=== PATIENT | female | born 1940 | race Caucasian/White ===

== ENCOUNTER 2018-08-08 15:37 | Inpatient (IN) | payer BC, OTHER ==
--- NOTE | 2018-08-08 15:44 | PDOC ---
Rapid Medical Evaluation Medical Evaluation: Allergies Allergy/AdvReac Type Severity Reaction Status Date / Time Penicillins Allergy Severe Hives Verified 01/30/16 18:07 aspirin AdvReac Intermediate Nausea,STOMACH Verified 01/30/16 18:07 PAIN I have performed a brief in-person evaluation of this patient. The patient presents with a chief complaint of: hx of DM, c/o R 2nd toe pain from 2 days ago; denies fever Pertinent physical exam findings: R 2nd toe swollen, erythematous, at base of toe noted with skin maceration, no discharge I have ordered the following: Labs, xray (patient refused pain meds for now) The patient will proceed to the ED for further evaluation. 08/08/18 15:41
[2018-08-08 16:11] LABS: BASO % 0.6 % (0-2.0); EOS % 13.7 % (0-4.5); HEMATOCRIT 39.5 % (32.4-45.2); HEMOGLOBIN 13.7 GM/dL (10.7-15.3); LYMPH % 21.7 % (8-40); MCH 30.6 pg (25.7-33.7); MCHC 34.6 g/dl (32.0-36.0); MEAN CELL VOLUME 88.3 fl (80-96); MEAN PLT VOLUME 8.9 fl (7.5-11.1); MONO % 8.8 % (3.8-10.2); NEUT % 55.2 % (42.8-82.8); PLATELET COUNT 239 K/MM3 (134-434); RBC 4.47 M/mm3 (3.60-5.2); RDW 14.2 % (11.6-15.6); WHITE BLOOD COUNT 11.4 K/mm3 (4.0-10.0)
[2018-08-08 16:39] LABS: ANION GAP 5 MMOL/L (8-16); BLOOD UREA NITROGEN 31 mg/dL (7-18); CALCIUM 9.3 mg/dL (8.5-10.1); CHLORIDE 100 mmol/L (98-107); CO2 31 mmol/L (21-32); CREATININE 0.8 mg/dL (0.55-1.3); GLUCOSE,RANDOM 218 mg/dL (74-106); POTASSIUM 4.4 mmol/L (3.5-5.1); SODIUM 136 mmol/L (136-145)
--- NOTE | 2018-08-08 20:14 | PDOC ---
History of Present Illness - General Chief Complaint: Wound Stated Complaint: RT INFECTION Time Seen by Provider: 08/08/18 15:41 History Source: Patient Exam Limitations: No Limitations - History of Present Illness Initial Comments: 08/08/18 20:09 HISTORY OF PRESENT ILLNESS: This is a 77-year-old woman past medical history of insulin-dependent diabetes and hypertension presents emergency department for evaluation of pain to the right second toe which started 3 days ago. Patient reported increased swelling and erythema to toe which caused her to seek out care at an urgent care center. After evaluation the education was sent to the emergency department for continued evaluation and treatment. No recent travel or sick contacts. PAST MEDICAL HISTORY: see HPI SURGICAL HISTORY: Denies ALLERGIES: PCN, ASA REVIEW OF SYSTEMS General/Constitutional: Denies fever or chills. Denies weakness, weight change. HEENT: Denies change in vision. Denies ear pain or discharge. Denies sore throat. Cardiovascular: Denies chest pain or shortness of breath. Respiratory: Denies cough, wheezing, or hemoptysis. Gastrointestinal: Denies nausea, vomiting, diarrhea or constipation. Denies rectal bleeding. Genitourinary: Denies dysuria, frequency, or change in urination. Musculoskeletal:see HPI Skin and breasts: Denies rash or easy bruising. Neurologic: Denies headache, vertigo, loss of consciousness, or loss of sensation. Psychiatric: Denies depression or anxiety. Endocrine: Denies increased thirst. Denies abnormal weight change. Hematologic/Lymphatic: Denies anemia, easy bleeding, or history of blood clots. Allergic/Immunologic: Denies hives or skin allergy. Denies latex allergy. PHYSICAL EXAM General Appearance: Well-appearing, appropriately dressed. No apparent distress , no intoxication. HEENT: EOMI, PERRLA, normal ENT inspection, normal voice, TMs normal, pharynx normal. No conjunctival pallor. No photophobia, scleral icterus. Neck: Supple. Trachea midline. No tenderness, rigidity, carotid bruit, stridor , lymphadenopathy, or thyromegaly. Respiratory/Chest: Lungs CTAB. No shortness of breath, chest tenderness, respiratory distress, accessory muscle use. No crackles, rales, rhonchi, stridor , wheezing, dullness Cardiovascular: RRR. S1, S2. No JVD, murmur, bradycardia, tachycardia. Vascular Pulses: Dorsalis-Pedis (R): 2+, Dorsalis-Pedis (L): 2+ Gastrointestinal/Abdominal: Normal bowel sounds. Abdomen soft, non-distended. No tenderness or rebound tenderness. No organomegaly, pulsatile mass, guarding, hernia, hepatomegaly, splenomegaly. Lymphatic: No adenopathy, tenderness. Musculoskeletal/Extremities: Right second toe swollen, erythematous and tender to the dorsal aspect. The plantar surface of the right second toe is macerated with spontaneous purulent drainage present. Able to contact bone with probing. Integumentary: Appropriate color, dry, warm. 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 Fully oriented, alert. Appropriate mood/affect. Motor strength 5/5. No appreciable EOM palsy, facial droop or sensory deficit. 08/08/18 20:24 Past History - Past Medical History Allergies/Adverse Reactions: Allergies Allergy/AdvReac Type Severity Reaction Status Date / Time Penicillins Allergy Severe Hives Verified 01/30/16 18:07 aspirin AdvReac Intermediate Nausea,STOMACH Verified 01/30/16 18:07 PAIN Home Medications: Ambulatory Orders Metoprolol Succinate [Toprol XL -] 50 mg PO DAILY 10/02/14 Insulin (Novolog 70/30) [Novolog Mix 70/30 Flexpen -] 40 units SQ HS 12/23/14 Insulin Aspart Prot/Insuln Asp [Novolog Mix 70-30 Vial] 30 unit SQ AM 01/30/16 Cephalexin [Keflex] 500 mg PO BID #12 capsule 02/04/16 Gauze Bandage [Gauze] 1 each TP DAILY #30 bandage 02/04/16 Mupirocin Ointment [Bactroban 2% Ointment -] 1 applic TP BID #1 applic 02/04/16 Sulfamethoxazole/Trimethoprim [Bactrim Ds -] 1 tab PO BID #12 tablet 02/04/16 Anemia: No Asthma: No Cancer: No Cardiac Disorders: No CVA: No COPD: No CHF: No Dementia: No Diabetes: Yes (IDDM) GI Disorders: No Disorders: No HTN: Yes Hypercholesterolemia: Yes Liver Disease: No Seizures: No Thyroid Disease: No - Surgical History Abdominal Surgery: No Appendectomy: No Cardiac Surgery: No Cholecystectomy: No Lung Surgery: No Neurologic Surgery: No Orthopedic Surgery: No - Suicide/Smoking/Psychosocial Hx Smoking Status: No Smoking History: Never smoked Have you smoked in the past 12 months: No Number of Cigarettes Smoked Daily: 0 Hx Alcohol Use: No Drug/Substance Use Hx: No Substance Use Type: None Hx Substance Use Treatment: No *Physical Exam - Vital Signs Last Vital Signs Temp Pulse Resp BP Pulse Ox 97.5 F L 71 20 172/69 H 96 08/08/18 15:38 08/08/18 15:38 08/08/18 15:38 08/08/18 15:38 08/08/18 15:38 Moderate Sedation - Procedure Monitoring Vital Signs: Procedure Monitoring Vital Signs Temperature 97.5 F L 08/08/18 15:38 Pulse Rate 71 08/08/18 15:38 Respiratory Rate 20 08/08/18 15:38 Blood Pressure 172/69 H 08/08/18 15:38 O2 Sat by Pulse Oximetry (%) 96 08/08/18 15:38 ED Treatment Course - LABORATORY CBC & Chemistry Diagram: 08/08/18 15:57 08/08/18 15:57 - ADDITIONAL ORDERS Additional order review: Laboratory Results 08/08/18 15:57 Sodium 136 Potassium 4.4 Chloride 100 Carbon Dioxide 31 Anion Gap 5 L BUN 31 H Creatinine 0.8 Creat Clearance w eGFR 69.19 Random Glucose 218 H Calcium 9.3 08/08/18 15:57 RBC 4.47 MCV 88.3 MCHC 34.6 RDW 14.2 MPV 8.9 Neutrophils % 55.2 D Lymphocytes % 21.7 D Monocytes % 8.8 Eosinophils % 13.7 H D Basophils % 0.6 Medical Decision Making - Medical Decision Making 08/08/18 20:11 A/P: 77-year-old woman with clinical osteomyelitis of the right second toe Labs including blood cultures Urine culture, urinalysis wound culture CT scan of the right lower extremity This patient has penicillin ALLERGY. we'll start aztreonam 2g IV and vancomycin 1g IV likely admission 08/08/18 20:25 08/08/18 21:28 EKG reviewed by me is interpreted by Dr. Calderon: Sinus rhythm with rate of 67. AR 200 ms. QTc 441 ms. Normal axis. No ischemic changes present. 08/08/18 23:51 Patient returned from CAT scan and was reporting itching to her scalp and lower back. Oropharynx clear without any signs of edema. Uvula is midline. No stridor is auscultated. Lungs clear to auscultation bilaterally. There is no rash present to his scalp or lower back. We'll give the patient that she'll 50 mg IV push now and reevaluate. 08/09/18 00:34 CT as read by imaging concrete journeyman: 1. Findings consistent with sialitis of bilateral feet. No superficial or deep soft tissue abscess collection evident. 2. Findings concerning for focal osteomyelitis of fifth metatarsal head, left foot. I will contact hospitalist for admission. 08/09/18 00:54 case d/w MILANA Randolph who accepts to Med/Surg admission. *DC/Admit/Observation/Transfer Diagnosis at time of Disposition: Insulin dependent diabetes mellitus, Cellulitis and abscess of toe of right foot Osteomyelitis Qualifiers: Osteomyelitis type: unspecified type Osteomyelitis location: foot Laterality: left Qualified Code(s): M86.9 - Osteomyelitis, unspecified - Discharge Dispostion Condition at time of disposition: Fair Decision to Admit order: Yes - Referrals - Patient Instructions - Post Discharge Activity
[2018-08-08] MEDS ORDERED: AZTREONAM 2 GM in DEXTROSE 5%-WATER 100 ML IVPB ONE (20:22)
[2018-08-08] MEDS ORDERED: VANCOMYCIN 1 GM in D5W (PRE-DOCKED) 1,000 MG/250 ML IVPB ONE (20:22)
[2018-08-08] MEDS ORDERED: VANCOMYCIN 1 GRAM (PRE-DOCKED) 1,000 MG/250 ML BAG IVPB ONE (20:51)
[2018-08-08] MEDS ORDERED: diphenhydrAMINE HCL 25 MG CAPSULE (FP) PO ONE (23:38)
--- NOTE | 2018-08-09 03:04 | HP ---
Admitting History and Physical - Primary Care Physician PCP: Chloé Garcia - Admission Chief Complaint: Right Foot Pain, Swelling and Redness History of Present Illness: This is a 77 y/o woman with a past of DM, HTN. Who presents to the ED with pain , swelling and erythema to the right foot, toe#3. Patient reports increased swelling and pain to he right foot. Patient denies fever, chills, cough, SOB, dizziness, CP, palpitations, AP, N/V/D, constipation, dysuria. History Source: Patient, Family Member Limitations to Obtaining History: No Limitations - Past Medical History Cardiovascular: Yes: HTN, Hyperlipdemia Infectious Disease: Yes: MRSA Endocrine: Yes: Diabetes Mellitus - Smoking History Smoking history: Never smoked Have you smoked in the past 12 months: No Aproximately how many cigarettes per day: 0 - Alcohol/Substance Use Hx Alcohol Use: No Home Medications - Allergies Allergies/Adverse Reactions: Allergies Allergy/AdvReac Type Severity Reaction Status Date / Time Penicillins Allergy Severe Hives Verified 01/30/16 18:07 aspirin AdvReac Intermediate Nausea,STOMACH Verified 01/30/16 18:07 PAIN - Home Medications Home Medications: Ambulatory Orders Metoprolol Succinate [Toprol XL -] 50 mg PO DAILY 10/02/14 Insulin (Novolog 70/30) [Novolog Mix 70/30 Flexpen -] 40 units SQ HS 12/23/14 Furosemide [Lasix] 20 mg PO DAILY 08/09/18 Insulin (Novolog 70/30) [Novolog Mix 70/30 Vial] 30 ml SQ AM 08/09/18 Review of Systems - Review of Systems Constitutional: reports: No Symptoms Eyes: reports: No Symptoms HENT: reports: No Symptoms Neck: reports: No Symptoms Cardiovascular: reports: No Symptoms Respiratory: reports: No Symptoms Gastrointestinal: reports: No Symptoms Genitourinary: reports: No Symptoms Breasts: reports: No Symptoms Reported Musculoskeletal: reports: Extremity Pain Integumentary: reports: Erythema, Wound Neurological: reports: No Symptoms Endocrine: reports: No Symptoms Hematology/Lymphatic: reports: No Symptoms Psychiatric: reports: No Symptoms Pain Intensity: 6 Physical Examination Vital Signs: Vital Signs Temperature 97.5 F L 08/08/18 15:38 Pulse Rate 71 08/08/18 15:38 Respiratory Rate 20 08/08/18 15:38 Blood Pressure 172/69 H 08/08/18 15:38 O2 Sat by Pulse Oximetry (%) 96 08/08/18 15:38 Constitutional: Yes: Well Nourished, No Distress, Calm Eyes: Yes: WNL, Conjunctiva Clear, EOM Intact, PERRL HENT: Yes: WNL, Atraumatic, Normocephalic Neck: Yes: WNL, Supple, Trachea Midline Cardiovascular: Yes: WNL, Regular Rate and Rhythm, S1, S2 Respiratory: Yes: WNL, Regular, CTA Bilaterally Gastrointestinal: Yes: WNL, Normal Bowel Sounds, Soft, Abdomen, Obese ...Rectal Exam: Yes: Deferred Renal/: Yes: WNL Breast(s): Yes: WNL Musculoskeletal: Yes: WNL Extremities: Yes: Erythema Edema: Yes Edema: LLE: 1+, RLE: 2+ Peripheral Pulses WNL: Yes Integumentary: Yes: Erythema Wound/Incision: Yes: Dressing Dry and Intact, Reddened Neurological: Yes: WNL, Alert, Oriented, Cran Nerves II-XII Intact ...Motor Strength: WNL Psychiatric: Yes: WNL, Alert, Oriented Labs: CBC, BMP 08/08/18 15:57 08/08/18 15:57 Laboratory Results - last 24 hr 08/08/18 08/08/18 08/08/18 15:57 15:57 21:15 WBC 11.4 H RBC 4.47 Hgb 13.7 Hct 39.5 MCV 88.3 MCH 30.6 MCHC 34.6 RDW 14.2 Plt Count 239 MPV 8.9 Absolute Neuts (auto) 6.3 Neutrophils % 55.2 D Lymphocytes % 21.7 D Monocytes % 8.8 Eosinophils % 13.7 H D Basophils % 0.6 Nucleated RBC % 0 ESR Sodium 136 Potassium 4.4 Chloride 100 Carbon Dioxide 31 Anion Gap 5 L BUN 31 H Creatinine 0.8 Creat Clearance w eGFR 69.19 Random Glucose 218 H Calcium 9.3 C-Reactive Protein 0.7 H 08/08/18 21:18 WBC RBC Hgb Hct MCV MCH MCHC RDW Plt Count MPV Absolute Neuts (auto) Neutrophils % Lymphocytes % Monocytes % Eosinophils % Basophils % Nucleated RBC % ESR 53 H Sodium Potassium Chloride Carbon Dioxide Anion Gap BUN Creatinine Creat Clearance w eGFR Random Glucose Calcium C-Reactive Protein Intake & Output 08/06/18 08/07/18 08/08/18 08/09/18 23:59 23:59 23:59 23:59 Weight 79.379 kg Imaging - Results Chest X-ray: Pending X-ray: Image Reviewed EKG: Image Reviewed Problem List - Problems (1) Osteomyelitis Assessment/Plan: Xray- Osteomyelitis in B/L metatarsals Blood Cultures-pending Wound Culture-pending Vancomycin and Aztreonam given in ED, will continue Appreciate Vascular Consult Appreciate ID consult Monitor CBC, BMP Monitor vitals Wound Care Code(s): M86.9 - OSTEOMYELITIS, UNSPECIFIED Qualifiers: Osteomyelitis type: unspecified type Osteomyelitis location: foot Laterality: left Qualified Code(s): M86.9 - Osteomyelitis, unspecified (2) Cellulitis and abscess of toe of right foot Assessment/Plan: see above Code(s): L03.031 - CELLULITIS OF RIGHT TOE; L02.611 - CUTANEOUS ABSCESS OF RIGHT FOOT (3) Insulin dependent diabetes mellitus Assessment/Plan: stable BGMs ISS Code(s): E11.9 - TYPE 2 DIABETES MELLITUS WITHOUT COMPLICATIONS; Z79.4 - HEALTH INSURANCE SPECIALIST (CURRENT) USE OF INSULIN (4) HTN (hypertension) Assessment/Plan: stable Continue home meds Monitor renal function Code(s): I10 - ESSENTIAL (PRIMARY) HYPERTENSION Qualifiers: Hypertension type: essential hypertension Qualified Code(s): I10 - Essential (primary) hypertension (5) Hyperlipidemia associated with type 2 diabetes mellitus Assessment/Plan: Stable Code(s): E11.69 - TYPE 2 DIABETES MELLITUS WITH OTHER SPECIFIED COMPLICATION; E78.5 - HYPERLIPIDEMIA, UNSPECIFIED Assessment/Plan This is a 77 y/o woman with a PMHx of: HTN, DM. Admitted for Osteomyelitis, Cellulitis of R- Toe for further evaluation of their emergent condition. Plan: See Problem List FEN PO fluids as tolerated Replete lytes prn Low Na Diabetic Diet DVT ppx OOB SCDs Heparin SQ Dispo: Requires Inpatient Care Visit type - Emergency Visit Emergency Visit: Yes ED Registration Date: 08/08/18 Care time: The patient presented to the Emergency Department on the above date and was hospitalized for further evaluation of their emergent condition. - New Patient This patient is new to me today: Yes Date on this admission: 08/09/18 - Critical Care Critical Care patient: No
[2018-08-09] MEDS ORDERED: VANCOMYCIN 1,000 MG in DEXTROSE 5%-WATER - 250 ML IVPB SCH (09:00)
[2018-08-09 09:18] VITALS: BMI 32.5
--- NOTE | 2018-08-09 09:31 | CONSULT ---
Consult Consult Specialty:: Podiatry Reason for Consultation:: Cellulitis 2nd toe right - History of Present Illness Chief Complaint: Cellulitis right 2nd toe History of Present Illness: Wound tip of right 2nd toe for 2 weeks. - History Source History Provided By: Patient, Family Member (daughter present) - Past Medical History Cardio/Vascular: Yes: HTN, Hyperlipdemia Infectious Disease: Yes: MRSA Endocrine: Yes: Diabetes Mellitus - Alcohol/Substance Use Hx Alcohol Use: No - Smoking History Smoking history: Never smoked Have you smoked in the past 12 months: No Aproximately how many cigarettes per day: 0 Home Medications - Allergies Allergies/Adverse Reactions: Allergies Allergy/AdvReac Type Severity Reaction Status Date / Time Penicillins Allergy Severe Hives Verified 01/30/16 18:07 aspirin AdvReac Intermediate Nausea,STOMACH Verified 01/30/16 18:07 PAIN - Home Medications Home Medications: Ambulatory Orders Metoprolol Succinate [Toprol XL -] 50 mg PO DAILY 10/02/14 Insulin (Novolog 70/30) [Novolog Mix 70/30 Flexpen -] 40 units SQ HS 12/23/14 Furosemide [Lasix] 20 mg PO DAILY 08/09/18 Insulin (Novolog 70/30) [Novolog Mix 70/30 Vial] 30 ml SQ AM 08/09/18 Physical Exam Vital Signs: Vital Signs Temperature 97.9 F 08/09/18 08:38 Pulse Rate 71 08/09/18 08:38 Respiratory Rate 18 08/09/18 08:38 Blood Pressure 146/67 08/09/18 08:38 O2 Sat by Pulse Oximetry (%) 100 08/09/18 04:29 Extremities: Yes: Other (cellulitis 2nd toe right, eschar tip of 2nd toe, - drainage, ct negative for om, +edema,) Labs: CBC, BMP 08/08/18 15:57 08/08/18 15:57 Assessment/Plan cellulitis r/o om r/o pvd Vascular consult. ID on case. MRI for om rule out. will follow
[2018-08-09 09:42] LABS: BASO % 0.9 % (0-2.0); EOS % 16.4 % (0-4.5); HEMATOCRIT 40.4 % (32.4-45.2); HEMOGLOBIN 13.8 GM/dL (10.7-15.3); LYMPH % 21.1 % (8-40); MCH 30.3 pg (25.7-33.7); MCHC 34.1 g/dl (32.0-36.0); MEAN CELL VOLUME 88.9 fl (80-96); MEAN PLT VOLUME 9.2 fl (7.5-11.1); MONO % 8.3 % (3.8-10.2); NEUT % 53.3 % (42.8-82.8); PLATELET COUNT 244 K/MM3 (134-434); RBC 4.55 M/mm3 (3.60-5.2); RDW 14.5 % (11.6-15.6); WHITE BLOOD COUNT 9.3 K/mm3 (4.0-10.0)
[2018-08-09] MEDS ORDERED: AZTREONAM 1 GM in DEXTROSE 5%-WATER - 50 ML IVPB SCH ×3 (10:00)
--- NOTE | 2018-08-09 10:07 | CONSULT ---
- Consultation REQUESTING PROVIDER: CONSULT REQUEST: We have been asked to surgically evaluate this patient for Right toe wound PCP:Chloé Garcia HISTORY OF PRESENT ILLNESS: 77yo F admitted to the hospital for Rt 2nd toe osteo, pt was consulted for vascular exam. Pt states that she noticed the wound about 3 days ago and it has continued to get worse. Pt denies previous wound on her foot. Pt is insulin dependant diabetic which is poorly controlled. Pt denies h/o vascular disease, denies tobacco use. Denies fever, chills, n/v. PMHx: HTN, DM Home Medications Medication Instructions Recorded Metoprolol Succinate [Toprol XL -] 50 mg PO DAILY 10/02/14 Insulin (Novolog 70/30) [Novolog 40 units SQ HS 12/23/14 Mix 70/30 Flexpen -] Furosemide [Lasix] 20 mg PO DAILY 08/09/18 Insulin (Novolog 70/30) [Novolog 30 ml SQ AM 08/09/18 Mix 70/30 Vial] Allergies Allergy/AdvReac Type Severity Reaction Status Date / Time Penicillins Allergy Severe Hives Verified 01/30/16 18:07 aspirin AdvReac Intermediate Nausea,STOMACH Verified 01/30/16 18:07 PAIN REVIEW OF SYSTEMS: CONSTITUTIONAL: Absent: fever, chills, diaphoresis, generalized weakness, malaise MUSCULOSKELETAL: Absent: myalgia, arthralgia, joint swelling, back pain, neck pain PHYSICAL EXAM: GENERAL: Awake, alert, and fully oriented, in no acute distress. HEAD: Normal with no signs of trauma. EYES: PERRL, sclera anicteric, conjunctiva clear. NECK: Normal ROM HEART: Regular rate and rhythm LOWER EXTREMITIES: Left foot 2+ pulses, warm, well-perfused. No calf tenderness. + 1 edema, Right foot +1 DP pulse, +2 edema, 1 cm ulcer with purulent drainage, distal tip 2nd toe, with surrounding erythema. NEUROLOGICAL: Normal speech, gait not observed. PSYCH: Cooperative. Good eye contact. Appropriate mood and affect. Vital Signs Temperature 97.9 F 08/09/18 08:38 Pulse Rate 71 08/09/18 08:38 Respiratory Rate 18 08/09/18 08:38 Blood Pressure 146/67 08/09/18 08:38 O2 Sat by Pulse Oximetry (%) 100 08/09/18 04:29 Lab Results WBC 9.3 K/mm3 (4.0-10.0) 08/09/18 08:42 RBC 4.55 M/mm3 (3.60-5.2) 08/09/18 08:42 Hgb 13.8 GM/dL (10.7-15.3) 08/09/18 08:42 Hct 40.4 % (32.4-45.2) 08/09/18 08:42 MCV 88.9 fl (80-96) 08/09/18 08:42 MCHC 34.1 g/dl (32.0-36.0) 08/09/18 08:42 RDW 14.5 % (11.6-15.6) 08/09/18 08:42 Plt Count 244 K/MM3 (134-434) 08/09/18 08:42 Sodium 136 mmol/L (136-145) 08/08/18 15:57 Potassium 4.4 mmol/L (3.5-5.1) 08/08/18 15:57 Chloride 100 mmol/L (98-107) 08/08/18 15:57 Carbon Dioxide 31 mmol/L (21-32) 08/08/18 15:57 Anion Gap 5 MMOL/L (8-16) L 08/08/18 15:57 BUN 31 mg/dL (7-18) H 08/08/18 15:57 Creatinine 0.8 mg/dL (0.55-1.3) 08/08/18 15:57 Random Glucose 218 mg/dL (74-106) H 08/08/18 15:57 Calcium 9.3 mg/dL (8.5-10.1) 08/08/18 15:57 Problem List - Problems (1) Cellulitis and abscess of toe of right foot Assessment/Plan: Plan -no signs of significant vascular compromise at this time, recommend wound care as per podiatry -abx as per ID -tight glucose control -no vascular surgical intervention at this time, please contact if any changes. Code(s): L03.031 - CELLULITIS OF RIGHT TOE; L02.611 - CUTANEOUS ABSCESS OF RIGHT FOOT
[2018-08-09] MEDS: HEPARIN NA (PORCINE) 5,000 UNITS/ML 1ML VIAL SQ SCH ×2 (10:22→21:59)
[2018-08-09] MEDS: VANCOMYCIN 1 GRAM (PRE-DOCKED) 1,000 MG/250 ML BAG IVPB SCH ×2 (10:22→22:01)
[2018-08-09] MEDS: FUROSEMIDE 40 MG/4 ML INJECTABLE VIAL IVPUSH SCH (10:22)
[2018-08-09 10:56] LABS: EPI CELLS 0.2 /HPF (FEW); HYALINE CASTS 4 /hpf (NEGATIVE); PH,URINE 6.5 (5.0-8.0); URINE APPEARANCE CLEAR; URINE BACTERIA 5.742 /hpf (NEGATIVE); URINE BILIRUBIN NEGATIVE (<2.0 mg/dL); URINE COLOR YELLOW; URINE GLUCOSE (UA) 3+ (NEGATIVE); URINE KETONE NEGATIVE (NEGATIVE); URINE LEUK ESTERASE 2+ (NEGATIVE); URINE NITRITE POSITIVE (NEGATIVE); URINE PROTEIN NEGATIVE (NEGATIVE); URINE RBC 3 /hpf (0-3); URINE UROBILINOGEN 0.2 mg/dL (0.2-1.0); URINE WBC 112 /hpf (3-5)
--- NOTE | 2018-08-09 10:59 | EKG ---
Test Reason : Blood Pressure : / mmHG Vent. Rate : 076 BPM Atrial Rate : 076 BPM P-R Int : 200 ms QRS Dur : 100 ms QT Int : 392 ms P-R-T Axes : 078 004 028 degrees QTc Int : 441 ms NORMAL SINUS RHYTHM NORMAL ECG WHEN COMPARED WITH ECG OF 30-JAN-2016 23:46, NONSPECIFIC T WAVE ABNORMALITY NO LONGER EVIDENT IN ANTERIOR LEADS Confirmed by NUZHAT MURPHY MD ([id number]) on 08/09/2018 10:59:09 AM Referred By: Confirmed By:NUZHAT MURPHY MD
[2018-08-09 11:31] LABS: ANION GAP 9 MMOL/L (8-16); BLOOD UREA NITROGEN 24 mg/dL (7-18); CHLORIDE 98 mmol/L (98-107); CO2 26 mmol/L (21-32); CREATININE 0.9 mg/dL (0.55-1.3); POTASSIUM 4.5 mmol/L (3.5-5.1); SODIUM 134 mmol/L (136-145)
[2018-08-09] MEDS ORDERED: PT OWN MED DRAWER 7, Y5N ONE (11:46)
[2018-08-09 11:57] LABS: GLUCOSE,RANDOM 436 mg/dL (74-106)
[2018-08-09] MEDS: INSULIN SLIDING SCALE (NOVOLOG) 1 VIAL SQ SCH ×4 (12:01→22:11)
--- NOTE | 2018-08-09 12:02 | CON.ID ---
Consult Consult Specialty:: infectious diseases Referred by:: hospitalist Reason for Consultation:: celluliis of the 2nd toe of the rt foot with abscess/ collection - History of Present Illness Chief Complaint: pain and swelling of the rt foot and toe with abscess History of Present Illness: 77 y/o woman with a past of DM, HTN. Who presents to the ED with pain, swelling and erythema to the right foot, toe#3. Patient reports increased swelling and pain to he right foot. Patient denies fever, chills, cough, SOB, dizziness, CP, palpitations, AP, N/V/D, constipation, dysuria. patient was seen in the er and was found to ahve a blister/collection which was drained and cx were send looking at the wound patient has infected toe - History Source History Provided By: Patient, Family Member Limitations to Obtaining History: No Limitations - Past Medical History Cardio/Vascular: Yes: HTN, Hyperlipdemia Infectious Disease: Yes: MRSA Endocrine: Yes: Diabetes Mellitus - Alcohol/Substance Use Hx Alcohol Use: No - Smoking History Smoking history: Never smoked Have you smoked in the past 12 months: No Aproximately how many cigarettes per day: 0 Home Medications - Allergies Allergies/Adverse Reactions: Allergies Allergy/AdvReac Type Severity Reaction Status Date / Time Penicillins Allergy Severe Hives Verified 01/30/16 18:07 aspirin AdvReac Intermediate Nausea,STOMACH Verified 01/30/16 18:07 PAIN - Home Medications Home Medications: Ambulatory Orders Metoprolol Succinate [Toprol XL -] 50 mg PO DAILY 10/02/14 Insulin (Novolog 70/30) [Novolog Mix 70/30 Flexpen -] 40 units SQ HS 12/23/14 Furosemide [Lasix] 20 mg PO DAILY 08/09/18 Insulin (Novolog 70/30) [Novolog Mix 70/30 Vial] 30 ml SQ AM 08/09/18 Review of Systems - Review of Systems Constitutional: reports: No Symptoms Eyes: reports: No Symptoms HENT: reports: No Symptoms Neck: reports: No Symptoms Cardiovascular: reports: No Symptoms Respiratory: reports: No Symptoms Gastrointestinal: reports: No Symptoms Genitourinary: reports: No Symptoms Musculoskeletal: reports: Other Integumentary: reports: Erythema Neurological: reports: No Symptoms Endocrine: reports: No Symptoms Hematology/Lymphatic: reports: No Symptoms Physical Exam Vital Signs: Vital Signs Temperature 97.9 F 08/09/18 08:38 Pulse Rate 71 08/09/18 08:38 Respiratory Rate 18 08/09/18 08:38 Blood Pressure 146/67 08/09/18 08:38 O2 Sat by Pulse Oximetry (%) 100 08/09/18 04:29 Constitutional: Yes: No Distress, Calm HENT: Yes: Atraumatic, Normocephalic Neck: Yes: Supple, Trachea Midline Cardiovascular: Yes: Regular Rate and Rhythm Respiratory: Yes: Regular, CTA Bilaterally Gastrointestinal: Yes: Normal Bowel Sounds, Soft Musculoskeletal: Yes: Other Extremities: Yes: Other (tenderness of the toe as well as cellulitis of the foot ) Neurological: Yes: Alert, Oriented Psychiatric: Yes: Alert, Oriented Labs: CBC, BMP 08/09/18 08:42 08/09/18 08:42 Imaging - Results Chest X-ray: Report Reviewed, Image Reviewed Cat Scan: Image Reviewed Assessment/Plan Problem List - Problems (1) Osteomyelitis Code(s): M86.9 - OSTEOMYELITIS, UNSPECIFIED Qualifiers: Osteomyelitis type: unspecified type Osteomyelitis location: foot Laterality: left Qualified Code(s): M86.9 - Osteomyelitis, unspecified (2) Cellulitis and abscess of toe of right foot Code(s): L03.031 - CELLULITIS OF RIGHT TOE; L02.611 - CUTANEOUS ABSCESS OF RIGHT FOOT (3) Insulin dependent diabetes mellitus Code(s): E11.9 - TYPE 2 DIABETES MELLITUS WITHOUT COMPLICATIONS; Z79.4 - SNF (CURRENT) USE OF INSULIN (4) HTN (hypertension) Code(s): I10 - ESSENTIAL (PRIMARY) HYPERTENSION Qualifiers: Hypertension type: essential hypertension Qualified Code(s): I10 - Essential (primary) hypertension (5) Hyperlipidemia associated with type 2 diabetes mellitus Code(s): E11.69 - TYPE 2 DIABETES MELLITUS WITH OTHER SPECIFIED COMPLICATION; E78.5 - HYPERLIPIDEMIA, UNSPECIFIED Assessment/Plan This is a 77 y/o woman with a PMHx of: HTN, DM. Admitted for Osteomyelitis, Cellulitis of R- Toe for further evaluation of their emergent condition. i am worried about osteo plan will start ceftriaxone on the patient wound care await for final results rest as per the team
[2018-08-09] MEDS ORDERED: DEXTROSE 5%-WATER 100 ML IVPB ONE (12:25)
[2018-08-09] MEDS: CEFTRIAXONE 2 GM in DEXTROSE 5%-WATER 100 ML IVPB SCH (12:31)
--- NOTE | 2018-08-09 12:57 | PN ---
Progress Note (short form) - Note Progress Note: has pus in right 2nd toe pain daughter at bedside -tells me her sugars at home are uncontrolled Vital Signs - 24 hr 08/08/18 08/09/18 08/09/18 15:38 04:29 08:38 Temperature 97.5 F L 98.2 F 97.9 F Pulse Rate 71 71 Pulse Rate [ 68 Right Radial] Respiratory 20 19 18 Rate Blood Pressure 172/69 H 146/67 Blood Pressure 137/63 [Left Arm] O2 Sat by Pulse 96 100 Oximetry (%) Current Medications Generic Name Dose Route Start Last Admin Trade Name Freq PRN Reason Stop Dose Admin Furosemide 20 mg 08/09/18 10:00 08/09/18 10:22 Lasix Injection - IVPUSH 20 mg DAILY [facility]UELA Administration Heparin Sodium (Porcine) 5,000 unit 08/09/18 10:00 08/09/18 10:22 Heparin - SQ 5,000 unit BID MANUELA Administration Vancomycin HCl 1,000 mg/ 250 mls @ 166.667 mls/hr 08/09/18 09:00 Dextrose IVPB Q12H MANUELA Protocol Vancomycin HCl 1,000 mg in 250 mls @ 166.667 mls/hr 08/09/18 10:00 08/09/18 10:22 Vancomycin (Pre-Docked) IVPB 08/10/18 09:59 166.667 mls/hr Q12H MANUELA Administration Protocol Ceftriaxone Sodium 2 gm/ 100 mls @ 200 mls/hr 08/09/18 12:30 08/09/18 12:31 Dextrose IVPB 200 mls/hr DAILY [facility]UELA Administration Protocol Insulin Aspart 1 vial 08/09/18 07:00 08/09/18 12:01 Novolog Vial Sliding Scale - SQ 14 units ACHS MANUELA Administration Protocol Metoprolol Succinate 50 mg 08/09/18 10:00 08/09/18 10:22 Toprol Xl - PO 50 mg DAILY MANUELA Administration Laboratory Results - last 24 hr 08/08/18 08/08/18 08/08/18 15:57 15:57 21:15 WBC 11.4 H RBC 4.47 Hgb 13.7 Hct 39.5 MCV 88.3 MCH 30.6 MCHC 34.6 RDW 14.2 Plt Count 239 MPV 8.9 Absolute Neuts (auto) 6.3 Neutrophils % 55.2 D Lymphocytes % 21.7 D Monocytes % 8.8 Eosinophils % 13.7 H D Basophils % 0.6 Nucleated RBC % 0 ESR Sodium 136 Potassium 4.4 Chloride 100 Carbon Dioxide 31 Anion Gap 5 L BUN 31 H Creatinine 0.8 Creat Clearance w eGFR 69.19 POC Glucometer Random Glucose 218 H Calcium 9.3 C-Reactive Protein 0.7 H Urine Color Urine Appearance Urine pH Ur Specific [place] Urine Protein Urine Glucose (UA) Urine Ketones Urine Blood Urine Nitrite Urine Bilirubin Urine Urobilinogen Ur Leukocyte Esterase Urine WBC (Auto) Urine RBC (Auto) Urine Casts (Auto) U Epithel Cells (Auto) Urine Bacteria (Auto) 08/08/18 08/09/18 08/09/18 21:18 06:50 08:42 WBC 9.3 RBC 4.55 Hgb 13.8 Hct 40.4 MCV 88.9 MCH 30.3 MCHC 34.1 RDW 14.5 Plt Count 244 MPV 9.2 Absolute Neuts (auto) 5.0 Neutrophils % 53.3 Lymphocytes % 21.1 Monocytes % 8.3 Eosinophils % 16.4 H Basophils % 0.9 Nucleated RBC % 0 ESR 53 H Sodium Potassium Chloride Carbon Dioxide Anion Gap BUN Creatinine Creat Clearance w eGFR POC Glucometer Random Glucose Calcium C-Reactive Protein Urine Color Yellow Urine Appearance Clear Urine pH 6.5 D Ur Specific [place] 1.035 Urine Protein Negative Urine Glucose (UA) 3+ Urine Ketones Negative Urine Blood Trace Urine Nitrite Positive Urine Bilirubin Negative Urine Urobilinogen 0.2 Ur Leukocyte Esterase 2+ Urine WBC (Auto) 112 Urine RBC (Auto) 3 Urine Casts (Auto) 4 U Epithel Cells (Auto) 0.2 Urine Bacteria (Auto) 5.742 08/09/18 08/09/18 08:42 11:51 WBC RBC Hgb Hct MCV MCH MCHC RDW Plt Count MPV Absolute Neuts (auto) Neutrophils % Lymphocytes % Monocytes % Eosinophils % Basophils % Nucleated RBC % ESR Sodium 134 L Potassium 4.5 Chloride 98 Carbon Dioxide 26 Anion Gap 9 BUN 24 H Creatinine 0.9 Creat Clearance w eGFR 60.40 POC Glucometer 581 Random Glucose 436 H* Calcium 9.0 C-Reactive Protein Urine Color Urine Appearance Urine pH Ur Specific [place] Urine Protein Urine Glucose (UA) Urine Ketones Urine Blood Urine Nitrite Urine Bilirubin Urine Urobilinogen Ur Leukocyte Esterase Urine WBC (Auto) Urine RBC (Auto) Urine Casts (Auto) U Epithel Cells (Auto) Urine Bacteria (Auto) S1 S2 RRR Lungs clear Rt 2nd toe-- plantar surface ulcer noted, surrounding edema, erythema, tender and purulent discharge+ no other ulcers noted on left foot PLAN Spoke with ID likely osteomyelitis on iv antibiotics CT foot done in ER-- awaiting for results check A1C adjust insulin
--- NOTE | 2018-08-09 12:57 | PN ---
Progress Note, Physician - Current Medication List Current Medications: Active Medications Furosemide (Lasix Injection -) 20 mg IVPUSH DAILY [facility]A Last Admin: 08/09/18 10:22 Dose: 20 mg Heparin Sodium (Porcine) (Heparin -) 5,000 unit SQ BID [facility] Last Admin: 08/09/18 10:22 Dose: 5,000 unit Vancomycin HCl 1,000 mg/ (Dextrose) 250 mls @ 166.667 mls/hr IVPB Q12H [facility]; Protocol Vancomycin HCl (Vancomycin (Pre-Docked)) 1,000 mg in 250 mls @ 166.667 mls/hr IVPB Q12H [facility]; Protocol Stop: 08/10/18 09:59 Last Admin: 08/09/18 10:22 Dose: 166.667 mls/hr Ceftriaxone Sodium 2 gm/ (Dextrose) 100 mls @ 200 mls/hr IVPB DAILY [facility]; Protocol Last Admin: 08/09/18 12:31 Dose: 200 mls/hr Insulin Aspart (Novolog Vial Sliding Scale -) 1 vial SQ ACHS [facility]; Protocol Last Admin: 08/09/18 12:01 Dose: 14 units Metoprolol Succinate (Toprol Xl -) 50 mg PO DAILY [facility] Last Admin: 08/09/18 10:22 Dose: 50 mg - Objective Vital Signs: Vital Signs Temperature 97.9 F 08/09/18 08:38 Pulse Rate 71 08/09/18 08:38 Respiratory Rate 18 08/09/18 08:38 Blood Pressure 146/67 08/09/18 08:38 O2 Sat by Pulse Oximetry (%) 100 08/09/18 04:29 Labs: CBC, BMP 08/09/18 08:42 08/09/18 08:42
--- NOTE | 2018-08-09 12:58 | PN ---
Problem List - Problems (1) Cellulitis and abscess of toe of right foot Code(s): L03.031 - CELLULITIS OF RIGHT TOE; L02.611 - CUTANEOUS ABSCESS OF RIGHT FOOT (2) Insulin dependent diabetes mellitus Code(s): E11.9 - TYPE 2 DIABETES MELLITUS WITHOUT COMPLICATIONS; Z79.4 - PRISON (CURRENT) USE OF INSULIN (3) Osteomyelitis Code(s): M86.9 - OSTEOMYELITIS, UNSPECIFIED Qualifiers: Osteomyelitis type: unspecified type Osteomyelitis location: foot Laterality: left Qualified Code(s): M86.9 - Osteomyelitis, unspecified (4) HTN (hypertension) Code(s): I10 - ESSENTIAL (PRIMARY) HYPERTENSION Qualifiers: Hypertension type: essential hypertension Qualified Code(s): I10 - Essential (primary) hypertension
--- NOTE | 2018-08-09 14:47 | CONSULT ---
Consult Reason for Consultation:: Right second toe ulcer with cellulitis for the last three days as per pt. Daughter at bedside. - History Source Limitations to Obtaining History: No Limitations - Past Medical History Cardio/Vascular: Yes: HTN, Hyperlipdemia Infectious Disease: Yes: MRSA Endocrine: Yes: Diabetes Mellitus - Alcohol/Substance Use Hx Alcohol Use: No - Smoking History Smoking history: Never smoked Have you smoked in the past 12 months: No Aproximately how many cigarettes per day: 0 Home Medications - Allergies Allergies/Adverse Reactions: Allergies Allergy/AdvReac Type Severity Reaction Status Date / Time Penicillins Allergy Severe Hives Verified 01/30/16 18:07 aspirin AdvReac Intermediate Nausea,STOMACH Verified 01/30/16 18:07 PAIN - Home Medications Home Medications: Ambulatory Orders Metoprolol Succinate [Toprol XL -] 50 mg PO DAILY 10/02/14 Insulin (Novolog 70/30) [Novolog Mix 70/30 Flexpen -] 40 units SQ HS 12/23/14 Furosemide [Lasix] 20 mg PO DAILY 08/09/18 Insulin (Novolog 70/30) [Novolog Mix 70/30 Vial] 30 ml SQ AM 08/09/18 Review of Systems - Review of Systems Constitutional: reports: No Symptoms Eyes: reports: No Symptoms HENT: reports: No Symptoms Neck: reports: No Symptoms Cardiovascular: reports: No Symptoms Respiratory: reports: No Symptoms Gastrointestinal: reports: No Symptoms Genitourinary: reports: No Symptoms Musculoskeletal: reports: No Symptoms Integumentary: reports: No Symptoms Neurological: reports: No Symptoms Psychiatric: reports: No Symptoms Physical Exam Vital Signs: Vital Signs Temperature 97.4 F L 08/09/18 14:06 Pulse Rate 65 08/09/18 14:06 Respiratory Rate 18 08/09/18 08:38 Blood Pressure 136/61 08/09/18 14:06 O2 Sat by Pulse Oximetry (%) 100 08/09/18 04:29 Constitutional: Yes: Well Nourished, No Distress, Calm Eyes: Yes: WNL, Conjunctiva Clear, EOM Intact HENT: Yes: WNL, Atraumatic, Normocephalic Neck: Yes: WNL, Supple, Trachea Midline Cardiovascular: Yes: WNL, Regular Rate and Rhythm Respiratory: Yes: WNL, Regular, CTA Bilaterally Gastrointestinal: Yes: WNL, Normal Bowel Sounds ...Rectal Exam: Yes: WNL Renal/: Yes: WNL Breast(s): Yes: WNL Musculoskeletal: Yes: WNL Extremities: Yes: WNL, Other (right second toe - ulcer on tip. Erythema of entire toe. Palpable DP pulse.) Edema: Yes (pitting edema right leg ) Edema: RLE: 3+ Peripheral Pulses WNL: Yes Integumentary: Yes: WNL Neurological: Yes: WNL, Alert, Oriented ...Motor Strength: WNL Psychiatric: Yes: WNL Labs: CBC, BMP 08/09/18 08:42 08/09/18 08:42 Problem List - Problems (1) Cellulitis and abscess of toe of right foot Assessment/Plan: Right second toe ulcer with cellulitis. Pt not really sure when it started. She claims her grandson saw the wound 3 days ago. Will order MRI of right foot to rule out osteo. Palpable pulse. Salvador Clement DO Code(s): L03.031 - CELLULITIS OF RIGHT TOE; L02.611 - CUTANEOUS ABSCESS OF RIGHT FOOT (2) Osteomyelitis Code(s): M86.9 - OSTEOMYELITIS, UNSPECIFIED Qualifiers: Osteomyelitis type: unspecified type Osteomyelitis location: foot Laterality: left Qualified Code(s): M86.9 - Osteomyelitis, unspecified
[2018-08-09] MEDS: INSULIN (NOVOLOG MIX 70/30) 100 UNITS/ML MDV SQ SCH (21:59)
[2018-08-09] MEDS ORDERED: INSULIN (NOVOLOG) ASPART 100 UNITS/ML 10ML VIAL ONE (22:09)
[2018-08-10] MEDS: INSULIN SLIDING SCALE (NOVOLOG) 1 VIAL SQ SCH ×4 (07:00→22:00)
--- NOTE | 2018-08-10 09:13 | PN ---
Progress Note (short form) - Note Progress Note: fuv right 2nd toe. vss, tmax 97.5 +improved cellulitis, mri pending improved cellulitis pvd r/o om discussed with vascular. will follow. awaiting mri result.
[2018-08-10] MEDS ORDERED: DEXTROSE 5%-WATER 100 ML IVPB ONE (10:24)
[2018-08-10] MEDS ORDERED: PT OWN MED DRAWER 7, Y5N ONE ×2 (10:24→11:46)
[2018-08-10] MEDS: FUROSEMIDE 40 MG/4 ML INJECTABLE VIAL IVPUSH SCH (10:34)
[2018-08-10] MEDS: HEPARIN NA (PORCINE) 5,000 UNITS/ML 1ML VIAL SQ SCH ×2 (10:34→22:29)
[2018-08-10] MEDS: CEFTRIAXONE 2 GM in DEXTROSE 5%-WATER 100 ML IVPB SCH (10:35)
--- NOTE | 2018-08-10 11:15 | PN ---
Progress Note (short form) - Note Progress Note: pt seen/ examined chart reviewed awake/comfortable afebrile denies pain Vital Signs Temp 98.4 F 08/10/18 10:31 Pulse 74 08/10/18 10:31 Resp 18 08/10/18 10:31 BP 133/71 08/10/18 10:31 Pulse Ox 100 08/09/18 21:00 Intake & Output 08/09/18 08/09/18 08/10/18 11:59 23:59 11:59 Intake Total 200 1125 300 Balance 200 1125 300 Weight 172 lb 4.8 oz Intake: IVPB 600 100 Oral 200 525 200 Other: Voiding Method Toilet Toilet # Unmeasured Voids Void 2 Bowel Movement No # Bowel Movements 1 Height 5 ft 1 in Body Mass Index (BMI) 32.5 Weight Measurement Method Wheelchair Active Medications Atorvastatin Calcium (Lipitor -) 10 mg PO HS MANUELA Enalapril Maleate (Vasotec -) 5 mg PO DAILY MANUELA Furosemide (Lasix Injection -) 20 mg IVPUSH DAILY [facility]ELA Last Admin: 08/10/18 10:34 Dose: 20 mg Heparin Sodium (Porcine) (Heparin -) 5,000 unit SQ BID [facility]UELA Last Admin: 08/10/18 10:34 Dose: 5,000 unit Vancomycin HCl 1,000 mg/ (Dextrose) 250 mls @ 166.667 mls/hr IVPB Q12H MANUELA; Protocol Ceftriaxone Sodium 2 gm/ (Dextrose) 100 mls @ 200 mls/hr IVPB DAILY [facility]UELA; Protocol Last Admin: 08/10/18 10:35 Dose: 200 mls/hr Insulin Aspart (Novolog Vial Sliding Scale -) 1 vial SQ ACHS MANUELA; Protocol Last Admin: 08/10/18 07:00 Dose: Not Given Insulin Aspart (Novolog Mix 70/30 Vial) 40 units SQ HS [facility]UELA Last Admin: 08/09/18 21:59 Dose: 40 units Metoprolol Succinate (Toprol Xl -) 50 mg PO DAILY [facility]UELA Last Admin: 08/10/18 10:34 Dose: 50 mg CBC, BMP 08/09/18 08:42 08/09/18 08:42 Ct -- No Osteo . Physical Exam S1 S2 RRR Lungs clear Rt 2nd toe-- plantar surface ulcer noted, surrounding edema, erythema, tender and purulent discharge+ no other ulcers noted on left foot . Neuro- Alert/ awake PLAN on iv antibiotics continue present care abx per i/d add statins/ autumn monior bgm further recommendations per clinical course. will follow discussed with nursing staff also.
[2018-08-10] MEDS: ENALAPRIL MALEATE 5 MG TABLET (FP) PO SCH (11:48)
--- NOTE | 2018-08-10 13:15 | PN ---
Progress Note, Physician History of Present Illness: patient stable toe still red and edematous - Current Medication List Current Medications: Active Medications Atorvastatin Calcium (Lipitor -) 10 mg PO HS [facility] Enalapril Maleate (Vasotec -) 5 mg PO DAILY [facility] Last Admin: 08/10/18 11:48 Dose: 5 mg Furosemide (Lasix Injection -) 20 mg IVPUSH DAILY [facility] Last Admin: 08/10/18 10:34 Dose: 20 mg Heparin Sodium (Porcine) (Heparin -) 5,000 unit SQ BID [facility] Last Admin: 08/10/18 10:34 Dose: 5,000 unit Ceftriaxone Sodium 2 gm/ (Dextrose) 100 mls @ 200 mls/hr IVPB DAILY [facility]; Protocol Last Admin: 08/10/18 10:35 Dose: 200 mls/hr Insulin Aspart (Novolog Vial Sliding Scale -) 1 vial SQ ACHS [facility]; Protocol Last Admin: 08/10/18 11:39 Dose: 10 units Insulin Aspart (Novolog Mix 70/30 Vial) 40 units SQ HS [facility] Last Admin: 08/09/18 21:59 Dose: 40 units Metoprolol Succinate (Toprol Xl -) 50 mg PO DAILY [facility] Last Admin: 08/10/18 10:34 Dose: 50 mg - Objective Vital Signs: Vital Signs Temperature 98.4 F 08/10/18 10:31 Pulse Rate 74 08/10/18 10:31 Respiratory Rate 18 08/10/18 10:31 Blood Pressure 133/71 08/10/18 10:31 O2 Sat by Pulse Oximetry (%) 100 08/09/18 21:00 Constitutional: Yes: No Distress, Calm Cardiovascular: Yes: Regular Rate and Rhythm Respiratory: Yes: Regular, CTA Bilaterally Gastrointestinal: Yes: Normal Bowel Sounds, Soft Musculoskeletal: Yes: WNL Extremities: Yes: WNL Integumentary: Yes: Erythema, Other (wound on toe) Wound/Incision: Yes: Other Neurological: Yes: Alert, Oriented Psychiatric: Yes: Alert, Oriented Labs: CBC, BMP 08/09/18 08:42 08/09/18 08:42 Assessment/Plan Problem List - Problems (1) Osteomyelitis Code(s): M86.9 - OSTEOMYELITIS, UNSPECIFIED Qualifiers: Osteomyelitis type: unspecified type Osteomyelitis location: foot Laterality: left Qualified Code(s): M86.9 - Osteomyelitis, unspecified (2) Cellulitis and abscess of toe of right foot Code(s): L03.031 - CELLULITIS OF RIGHT TOE; L02.611 - CUTANEOUS ABSCESS OF RIGHT FOOT (3) Insulin dependent diabetes mellitus Code(s): E11.9 - TYPE 2 DIABETES MELLITUS WITHOUT COMPLICATIONS; 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
[2018-08-10] MEDS: ATORVASTATIN CA 10 MG TABLET (FP) PO SCH (22:28)
[2018-08-10] MEDS: INSULIN (NOVOLOG MIX 70/30) 100 UNITS/ML MDV SQ SCH (22:31)
[2018-08-11] MEDS: INSULIN SLIDING SCALE (NOVOLOG) 1 VIAL SQ SCH ×6 (07:33→22:33)
[2018-08-11 08:39] LABS: BASO % 0.9 % (0-2.0); EOS % 14.6 % (0-4.5); HEMATOCRIT 40.6 % (32.4-45.2); HEMOGLOBIN 14.1 GM/dL (10.7-15.3); LYMPH % 29.2 % (8-40); MCH 30.8 pg (25.7-33.7); MCHC 34.7 g/dl (32.0-36.0); MEAN CELL VOLUME 88.8 fl (80-96); MEAN PLT VOLUME 8.6 fl (7.5-11.1); MONO % 9.3 % (3.8-10.2); PLATELET COUNT 241 K/MM3 (134-434); RBC 4.58 M/mm3 (3.60-5.2); RDW 13.9 % (11.6-15.6)
[2018-08-11 09:09] LABS: ALBUMIN 3.2 g/dl (3.4-5.0); ALK PHOS 98 U/L (45-117); ANION GAP 7 MMOL/L (8-16); BILIRUBIN,TOTAL 0.7 mg/dL (0.2-1); BLOOD UREA NITROGEN 25 mg/dL (7-18); CALCIUM 8.9 mg/dL (8.5-10.1); CHLORIDE 102 mmol/L (98-107); CHOLESTEROL 168 mg/dL (50-200); CO2 28 mmol/L (21-32); CREATININE 0.7 mg/dL (0.55-1.3); GLUCOSE,RANDOM 64 mg/dL (74-106); HDL CHOLESTEROL 55 mg/dL (40-60); SGOT/AST 21 U/L (15-37); SGPT/ALT 22 U/L (13-61); SODIUM 137 mmol/L (136-145); TOT PROT 7.6 g/dl (6.4-8.2); TRIGLYCERIDES 129 mg/dL (0-150)
[2018-08-11] MEDS ORDERED: DEXTROSE 5%-WATER 100 ML IVPB ONE (09:51)
[2018-08-11] MEDS: HEPARIN NA (PORCINE) 5,000 UNITS/ML 1ML VIAL SQ SCH ×2 (09:55→22:33)
[2018-08-11] MEDS: FUROSEMIDE 40 MG/4 ML INJECTABLE VIAL IVPUSH SCH (09:55)
[2018-08-11] MEDS: ENALAPRIL MALEATE 5 MG TABLET (FP) PO SCH (09:55)
[2018-08-11] MEDS: CEFTRIAXONE 2 GM in DEXTROSE 5%-WATER 100 ML IVPB SCH (09:56)
--- NOTE | 2018-08-11 12:04 | PN ---
Progress Note (short form) - Note Progress Note: pt seen/ examined chart reviewed awake/ comfortable right 2nd toe still red/ tender mri done - report pending bgm noted -- elevated but low in am Vital Signs Temp 97.8 F 08/11/18 07:54 Pulse 69 08/11/18 07:54 Resp 15 08/11/18 07:54 BP 130/70 08/11/18 07:54 Pulse Ox 100 08/10/18 21:00 Intake & Output 08/10/18 08/11/18 08/11/18 23:59 11:59 23:59 Intake Total 900 200 Balance 900 200 Intake: Oral 900 200 Other: Voiding Method Toilet # Unmeasured Voids Void 2 Bowel Movement No Active Medications Atorvastatin Calcium (Lipitor -) 10 mg PO HS [facility] Last Admin: 08/10/18 22:28 Dose: 10 mg Enalapril Maleate (Vasotec -) 5 mg PO DAILY [facility] Last Admin: 08/11/18 09:55 Dose: 5 mg Furosemide (Lasix Injection -) 20 mg IVPUSH DAILY [facility] Last Admin: 08/11/18 09:55 Dose: 20 mg Heparin Sodium (Porcine) (Heparin -) 5,000 unit SQ BID [facility] Last Admin: 08/11/18 09:55 Dose: 5,000 unit Ceftriaxone Sodium 2 gm/ (Dextrose) 100 mls @ 200 mls/hr IVPB DAILY [facility]; Protocol Last Admin: 08/11/18 09:56 Dose: 200 mls/hr Insulin Aspart (Novolog Vial Sliding Scale -) 1 vial SQ ACHS [facility]; Protocol Last Admin: 08/11/18 11:40 Dose: 10 units Insulin Aspart (Novolog Mix 70/30 Vial) 24 units SQ BIDAC [facility] Metoprolol Succinate (Toprol Xl -) 50 mg PO DAILY [facility] Last Admin: 08/11/18 09:55 Dose: 50 mg CBC, BMP 08/11/18 07:50 08/11/18 07:50 Physical Exam S1 S2 RRR Lungs clear Rt 2nd toe-- plantar surface ulcer noted, surrounding edema, erythema, tender and purulent discharge+ no other ulcers noted on left foot . Neuro- Alert/ awake PLAN continue present care abx per i/d added statins/ autumn change insulin to bid monitor mri pending further recommendations per clinical course. will follow discussed with nursing staff also. 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
--- NOTE | 2018-08-11 15:33 | PN ---
Progress Note, Physician History of Present Illness: stable doing well wound healing well no complaints - Current Medication List Current Medications: Active Medications Atorvastatin Calcium (Lipitor -) 10 mg PO HS [facility] Last Admin: 08/10/18 22:28 Dose: 10 mg Enalapril Maleate (Vasotec -) 5 mg PO DAILY [facility] Last Admin: 08/11/18 09:55 Dose: 5 mg Furosemide (Lasix Injection -) 20 mg IVPUSH DAILY [facility] Last Admin: 08/11/18 09:55 Dose: 20 mg Heparin Sodium (Porcine) (Heparin -) 5,000 unit SQ BID [facility] Last Admin: 08/11/18 09:55 Dose: 5,000 unit Ceftriaxone Sodium 2 gm/ (Dextrose) 100 mls @ 200 mls/hr IVPB DAILY [facility]; Protocol Last Admin: 08/11/18 09:56 Dose: 200 mls/hr Insulin Aspart (Novolog Vial Sliding Scale -) 1 vial SQ ACHS [facility]; Protocol Last Admin: 08/11/18 11:45 Dose: Not Given Insulin Aspart (Novolog Mix 70/30 Vial) 24 units SQ BIDAC [facility] Metoprolol Succinate (Toprol Xl -) 50 mg PO DAILY [facility] Last Admin: 08/11/18 09:55 Dose: 50 mg - Objective Vital Signs: Vital Signs Temperature 97.7 F 08/11/18 14:59 Pulse Rate 66 08/11/18 14:59 Respiratory Rate 16 08/11/18 14:59 Blood Pressure 121/55 L 08/11/18 14:59 O2 Sat by Pulse Oximetry (%) 100 08/11/18 09:00 Constitutional: Yes: No Distress, Calm Cardiovascular: Yes: Regular Rate and Rhythm Respiratory: Yes: Regular, CTA Bilaterally Gastrointestinal: Yes: Normal Bowel Sounds, Soft Musculoskeletal: Yes: WNL Extremities: Yes: Other Integumentary: Yes: Other Wound/Incision: Yes: Clean/Dry, Open to air Neurological: Yes: Alert, Oriented Psychiatric: Yes: Alert, Oriented Labs: CBC, BMP 08/11/18 07:50 08/11/18 07:50 Assessment/Plan Problem List - Problems (1) Osteomyelitis Code(s): M86.9 - OSTEOMYELITIS, UNSPECIFIED Qualifiers: Osteomyelitis type: unspecified type Osteomyelitis location: foot Laterality: left Qualified Code(s): M86.9 - Osteomyelitis, unspecified (2) Cellulitis and abscess of toe of right foot Code(s): L03.031 - CELLULITIS OF RIGHT TOE; L02.611 - CUTANEOUS ABSCESS OF RIGHT FOOT (3) Insulin dependent diabetes mellitus Code(s): E11.9 - TYPE 2 DIABETES MELLITUS WITHOUT COMPLICATIONS; Z79.4 - CARE HOME (CURRENT) USE OF INSULIN (4) HTN (hypertension) Code(s): I10 - ESSENTIAL (PRIMARY) HYPERTENSION Qualifiers: Hypertension type: essential hypertension Qualified Code(s): I10 - Essential (primary) hypertension (5) Hyperlipidemia associated with type 2 diabetes mellitus Code(s): E11.69 - TYPE 2 DIABETES MELLITUS WITH OTHER SPECIFIED COMPLICATION; E78.5 - HYPERLIPIDEMIA, UNSPECIFIED Assessment/Plan cx result noted imaging noted plan continue current abx once we have sensitivities we will switch to oral mri report awaited rest as per the team
[2018-08-11] MEDS: INSULIN (NOVOLOG MIX 70/30) 100 UNITS/ML MDV SQ SCH (16:58)
[2018-08-11] MEDS: VANCOMYCIN HCL 1,250 MG in DEXTROSE 5%-WATER - 250 ML IVPB SCH (17:16)
[2018-08-11] MEDS ORDERED: INSULIN (NOVOLOG) ASPART 100 UNITS/ML 10ML VIAL ONE (18:12)
[2018-08-11] MEDS: ATORVASTATIN CA 10 MG TABLET (FP) PO SCH (22:33)
[2018-08-12] MEDS: INSULIN (NOVOLOG MIX 70/30) 100 UNITS/ML MDV SQ SCH ×2 (06:28→17:31)
[2018-08-12] MEDS: INSULIN SLIDING SCALE (NOVOLOG) 1 VIAL SQ SCH ×4 (06:29→22:04)
[2018-08-12] MEDS: HEPARIN NA (PORCINE) 5,000 UNITS/ML 1ML VIAL SQ SCH ×2 (09:33→22:04)
[2018-08-12] MEDS: FUROSEMIDE 40 MG/4 ML INJECTABLE VIAL IVPUSH SCH (09:33)
[2018-08-12] MEDS: ENALAPRIL MALEATE 5 MG TABLET (FP) PO SCH (09:36)
--- NOTE | 2018-08-12 13:23 | PN ---
Progress Note (short form) - Note Progress Note: t seen/ examined all f/u noted blood sugar better mri- ve for osteo culture-- MRSA Vital Signs Temp 97.9 F 08/12/18 08:24 Pulse 70 08/12/18 08:24 Resp 14 08/12/18 08:24 BP 132/70 08/12/18 08:24 Pulse Ox 98 08/12/18 09:00 Intake & Output 08/11/18 08/12/18 08/12/18 23:59 11:59 23:59 Intake Total 850 200 Balance 850 200 Intake: IVPB 300 Oral 550 200 Other: Voiding Method Toilet Toilet # Unmeasured Voids Void 1 2 Bowel Movement Yes: 08/12/18 Active Medications Atorvastatin Calcium (Lipitor -) 10 mg PO HS [facility] Last Admin: 08/11/18 22:33 Dose: 10 mg Enalapril Maleate (Vasotec -) 5 mg PO DAILY [facility] Last Admin: 08/12/18 09:36 Dose: 5 mg Furosemide (Lasix Injection -) 20 mg IVPUSH DAILY [facility] Last Admin: 08/12/18 09:33 Dose: 20 mg Heparin Sodium (Porcine) (Heparin -) 5,000 unit SQ BID [facility] Last Admin: 08/12/18 09:33 Dose: 5,000 unit Vancomycin HCl 1,250 mg/ (Dextrose) 250 mls @ 250 mls/2 hr IVPB DAILY@1600 [facility] ; Protocol Last Admin: 08/11/18 17:16 Dose: 250 mls/2 hr Insulin Aspart (Novolog Vial Sliding Scale -) 1 vial SQ ACHS [facility]; Protocol Last Admin: 08/12/18 11:41 Dose: 2 units Insulin Aspart (Novolog Mix 70/30 Vial) 24 units SQ BIDAC [facility] Last Admin: 08/12/18 06:28 Dose: 24 units Metoprolol Succinate (Toprol Xl -) 50 mg PO DAILY [facility] Last Admin: 08/12/18 09:36 Dose: 50 mg CBC, BMP 08/11/18 07:50 08/11/18 07:50 Physical Exam S1 S2 RRR Lungs clear Rt 2nd toe-- plantar surface ulcer noted, surrounding edema, erythema, tender and purulent discharge+ no other ulcers noted on left foot . Neuro- Alert/ awake PLAN continue present care abx per i/d monitor further recommendations per clinical course. will follow discussed with nursing staff also. 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
--- NOTE | 2018-08-12 13:28 | PN ---
Progress Note, Physician History of Present Illness: patient stable no new issues - Current Medication List Current Medications: Active Medications Atorvastatin Calcium (Lipitor -) 10 mg PO HS [facility] Last Admin: 08/11/18 22:33 Dose: 10 mg Enalapril Maleate (Vasotec -) 5 mg PO DAILY [facility] Last Admin: 08/12/18 09:36 Dose: 5 mg Furosemide (Lasix Injection -) 20 mg IVPUSH DAILY [facility] Last Admin: 08/12/18 09:33 Dose: 20 mg Heparin Sodium (Porcine) (Heparin -) 5,000 unit SQ BID [facility] Last Admin: 08/12/18 09:33 Dose: 5,000 unit Vancomycin HCl 1,250 mg/ (Dextrose) 250 mls @ 250 mls/2 hr IVPB DAILY@1600 [facility]UELA ; Protocol Last Admin: 08/11/18 17:16 Dose: 250 mls/2 hr Insulin Aspart (Novolog Vial Sliding Scale -) 1 vial SQ ACHS [facility]; Protocol Last Admin: 08/12/18 11:41 Dose: 2 units Insulin Aspart (Novolog Mix 70/30 Vial) 24 units SQ BIDAC [facility] Last Admin: 08/12/18 06:28 Dose: 24 units Metoprolol Succinate (Toprol Xl -) 50 mg PO DAILY [facility] Last Admin: 08/12/18 09:36 Dose: 50 mg - Objective Vital Signs: Vital Signs Temperature 97.9 F 08/12/18 08:24 Pulse Rate 70 08/12/18 08:24 Respiratory Rate 14 08/12/18 08:24 Blood Pressure 132/70 08/12/18 08:24 O2 Sat by Pulse Oximetry (%) 98 08/12/18 09:00 Constitutional: Yes: No Distress, Calm Cardiovascular: Yes: Regular Rate and Rhythm Respiratory: Yes: Regular, CTA Bilaterally Gastrointestinal: Yes: Normal Bowel Sounds, Soft Musculoskeletal: Yes: WNL Extremities: Yes: WNL Wound/Incision: Yes: Other (wound improving) Neurological: Yes: Alert, Oriented Labs: CBC, BMP 08/11/18 07:50 08/11/18 07:50 - ....Imaging MRI: Report Reviewed, Image Reviewed Assessment/Plan Problem List - Problems (1) Osteomyelitis Code(s): M86.9 - OSTEOMYELITIS, UNSPECIFIED Qualifiers: Osteomyelitis type: unspecified type Osteomyelitis location: foot Laterality: left Qualified Code(s): M86.9 - Osteomyelitis, unspecified (2) Cellulitis and abscess of toe of right foot Code(s): L03.031 - CELLULITIS OF RIGHT TOE; L02.611 - CUTANEOUS ABSCESS OF RIGHT FOOT (3) Insulin dependent diabetes mellitus Code(s): E11.9 - TYPE 2 DIABETES MELLITUS WITHOUT COMPLICATIONS; Z79.4 - AUDITOR/QUALITY (CURRENT) USE OF INSULIN (4) HTN (hypertension) Code(s): I10 - ESSENTIAL (PRIMARY) HYPERTENSION Qualifiers: Hypertension type: essential hypertension Qualified Code(s): I10 - Essential (primary) hypertension (5) Hyperlipidemia associated with type 2 diabetes mellitus Code(s): E11.69 - TYPE 2 DIABETES MELLITUS WITH OTHER SPECIFIED COMPLICATION; E78.5 - HYPERLIPIDEMIA, UNSPECIFIED Assessment/Plan cx result noted imaging noted plan continue current abx once we have sensitivities we will switch to oral
[2018-08-12] MEDS: VANCOMYCIN HCL 1,250 MG in DEXTROSE 5%-WATER - 250 ML IVPB SCH (15:46)
--- NOTE | 2018-08-12 21:18 | PN ---
Progress Note (short form) - Note Progress Note: MRI: soft tisse selling compatible with cellulitis. No evidence of osteomyelitis. Cont wound care per Podiatry
[2018-08-12] MEDS: ATORVASTATIN CA 10 MG TABLET (FP) PO SCH (22:04)
[2018-08-13 05:43] VITALS: BP 127/58; PULSE 66; TEMP 97.6
[2018-08-13] MEDS: INSULIN (NOVOLOG MIX 70/30) 100 UNITS/ML MDV SQ SCH (06:19)
[2018-08-13] MEDS: INSULIN SLIDING SCALE (NOVOLOG) 1 VIAL SQ SCH ×2 (06:20→11:49)
[2018-08-13] MEDS: ENALAPRIL MALEATE 5 MG TABLET (FP) PO SCH (10:49)
[2018-08-13] MEDS: HEPARIN NA (PORCINE) 5,000 UNITS/ML 1ML VIAL SQ SCH (10:49)
[2018-08-13] MEDS: FUROSEMIDE 40 MG/4 ML INJECTABLE VIAL IVPUSH SCH (11:00)
--- NOTE | 2018-08-13 12:06 | PN ---
Progress Note (short form) - Note Progress Note: fuv right 2nd toe. Daughter present. vss, tmax 97.5 +improved cellulitis, mri negative for om improved cellulitis pvd r/o om discussed with vascular. Patient to follow in office. Continue post op shoe.
--- NOTE | 2018-08-13 12:17 | DS ---
Physical Examination Vital Signs: Vital Signs Temperature 97.6 F 08/13/18 05:41 Pulse Rate 66 08/13/18 05:41 Respiratory Rate 18 08/13/18 05:41 Blood Pressure 127/58 L 08/13/18 05:41 O2 Sat by Pulse Oximetry (%) 98 08/12/18 21:00 Findings/Remarks: pt seen/ examined comfortable patient's daughter at bedside No new issues afebrile MRI negative for osteo- Constitutional: Yes: No Distress, Calm, Obese Eyes: Yes: Conjunctiva Clear Neck: Yes: Supple Cardiovascular: Yes: Regular Rate and Rhythm Respiratory: Yes: CTA Bilaterally Gastrointestinal: Yes: Soft Extremities: Yes: Erythema (Right third toe----decreased redness/tenderness), Other Edema: No Peripheral Pulses WNL: No Neurological: Yes: Alert Psychiatric: Yes: Alert Labs: CBC, BMP 08/11/18 07:50 08/11/18 07:50 Discharge Summary Reason For Visit: INSULIN DEPENDENT DIABETES MELLITUS,OSTEOMYELITIS Current Active Problems Cellulitis and abscess of toe of right foot (Acute) Insulin dependent diabetes mellitus (Acute) Osteomyelitis (Acute) Hospital Course: This is a 77 y/o woman with a past of DM, HTN. Who presents to the ED with pain , swelling and erythema to the right foot, toe#3 patient treated with IV antibiotics CT scan/ MRI----negative for osteo Culture positive for MRSA ID/ vascular/ podiatry followed Discussed with ID today----stable for discharge on doxycycline for 12 more days Discussed in detail with patient's daughter Strongly advised to follow with podiatry also monitor blood sugar Better Follow up in office in--- in 2 weeks Medications reconciled Prescriptions send as needed Patient and patient's daughter in agreement Discussed with nursing staff also Condition: Fair - Instructions Diet, Activity, Other Instructions: f/u in office 2 weeks Referrals: Todd Cooper DPM [Staff Physician] - Disposition: HOME - Home Medications Comprehensive Discharge Medication List: Ambulatory Orders Metoprolol Succinate [Toprol XL -] 50 mg PO DAILY 10/02/14 Furosemide [Lasix] 20 mg PO DAILY 08/09/18 Insulin (Novolog 70/30) [Novolog Mix 70/30 Vial] 30 ml SQ AM 08/09/18 Atorvastatin Ca [Lipitor] 10 mg PO HS tablet 08/13/18 Doxycycline Hyclate 100 mg PO BID 12 Days #24 tablet 08/13/18 Enalapril Maleate [Vasotec -] 5 mg PO DAILY tablet 08/13/18 Insulin Sliding Scale [Novolog Vial Sliding Scale -] 1 vial SQ BID units Metoprolol Succinate [Toprol XL -] 50 mg PO DAILY tab.sr.24h 08/13/18
--- NOTE | 2018-08-13 12:19 | PN ---
Progress Note, Physician History of Present Illness: stable doing well no new issues wound healing well - Current Medication List Current Medications: Active Medications Atorvastatin Calcium (Lipitor -) 10 mg PO HS [facility] Last Admin: 08/12/18 22:04 Dose: 10 mg Enalapril Maleate (Vasotec -) 5 mg PO DAILY [facility] Last Admin: 08/13/18 10:49 Dose: 5 mg Furosemide (Lasix Injection -) 20 mg IVPUSH DAILY [facility] Last Admin: 08/13/18 11:00 Dose: 20 mg Heparin Sodium (Porcine) (Heparin -) 5,000 unit SQ BID [facility] Last Admin: 08/13/18 10:49 Dose: 5,000 unit Vancomycin HCl 1,250 mg/ (Dextrose) 250 mls @ 250 mls/2 hr IVPB DAILY@1600 [facility] ; Protocol Last Admin: 08/12/18 15:46 Dose: 250 mls/2 hr Insulin Aspart (Novolog Vial Sliding Scale -) 1 vial SQ ACHS [facility]; Protocol Last Admin: 08/13/18 11:49 Dose: 4 units Insulin Aspart (Novolog Mix 70/30 Vial) 24 units SQ BIDAC [facility] Last Admin: 08/13/18 06:19 Dose: 24 units Metoprolol Succinate (Toprol Xl -) 50 mg PO DAILY [facility] Last Admin: 08/13/18 10:49 Dose: 50 mg - Objective Vital Signs: Vital Signs Temperature 97.6 F 08/13/18 05:41 Pulse Rate 66 08/13/18 05:41 Respiratory Rate 18 08/13/18 05:41 Blood Pressure 127/58 L 08/13/18 05:41 O2 Sat by Pulse Oximetry (%) 98 08/12/18 21:00 Constitutional: Yes: No Distress, Calm Cardiovascular: Yes: Regular Rate and Rhythm Respiratory: Yes: Regular, CTA Bilaterally Gastrointestinal: Yes: Normal Bowel Sounds, Soft Musculoskeletal: Yes: WNL Extremities: Yes: Other Integumentary: Yes: WNL Wound/Incision: Yes: Clean/Dry Neurological: Yes: Alert, Oriented Psychiatric: Yes: Alert, Oriented Labs: CBC, BMP 08/11/18 07:50 08/11/18 07:50 Assessment/Plan Problem List - Problems (1) Osteomyelitis Code(s): M86.9 - OSTEOMYELITIS, UNSPECIFIED Qualifiers: Osteomyelitis type: unspecified type Osteomyelitis location: foot Laterality: left Qualified Code(s): M86.9 - Osteomyelitis, unspecified (2) Cellulitis and abscess of toe of right foot Code(s): L03.031 - CELLULITIS OF RIGHT TOE; L02.611 - CUTANEOUS ABSCESS OF RIGHT FOOT (3) Insulin dependent diabetes mellitus Code(s): E11.9 - TYPE 2 DIABETES MELLITUS WITHOUT COMPLICATIONS; Z79.4 - HAND FOLDER (CURRENT) USE OF INSULIN (4) HTN (hypertension) Code(s): I10 - ESSENTIAL (PRIMARY) HYPERTENSION Qualifiers: Hypertension type: essential hypertension Qualified Code(s): I10 - Essential (primary) hypertension (5) Hyperlipidemia associated with type 2 diabetes mellitus Code(s): E11.69 - TYPE 2 DIABETES MELLITUS WITH OTHER SPECIFIED COMPLICATION; E78.5 - HYPERLIPIDEMIA, UNSPECIFIED Assessment/Plan cx result noted imaging noted plan continue current abx doxy 100 mg po bid for 12 more days wound care rest as per the team
== END 2018-08-13 14:33 | disposition home or self-care (01) | DRG 603 ==
LOC: JER 15:37 → JERBED 08-09 00:58 → J6S 08-09 07:26
PROVIDERS: ADMIT Internal Medicine; ATTEND Internal Medicine
DX: L03.031 Cellulitis of right toe (principal); L02.611 Cutaneous abscess of right foot; E11.69 Type 2 diabetes mellitus with other specified complication; E66.9 Obesity, unspecified; E78.5 Hyperlipidemia, unspecified; I10 Essential (primary) hypertension; Z86.14 Personal history of Methicillin resistant Staphylococcus aureus infection; Z79.4 Long term (current) use of insulin; Z68.32 Body mass index [BMI] 32.0-32.9, adult
CPT/HCPCS: 36415; 71046-TC-FY; 73630-TC-RT-FY; 73701-TC-RT; 73723-TC; 80048; 80053; 80061; 81003; 82962; 83036; 83721; 84443; 85025; 85651; 86140; 87040; 87070; 87077; 87086; 87186; 87205; 93005; 93010; 99284-25; A9579; J1644

== ENCOUNTER 2018-09-03 16:23 | Inpatient (IN) | payer OTHER ==
--- NOTE | 2018-09-03 16:27 | PDOC ---
Rapid Medical Evaluation Time Seen by Provider: 09/03/18 16:25 Medical Evaluation: Allergies Allergy/AdvReac Type Severity Reaction Status Date / Time Penicillins Allergy Severe Hives Verified 01/30/16 18:07 aspirin AdvReac Intermediate Nausea,STOMACH Verified 01/30/16 18:07 PAIN 09/03/18 16:25 I have performed a brief in-person evaluation of this patient. The patient presents with a chief complaint of: sent by PMD for osteomyelitis Pertinent physical exam findings: Right second toe swollen, erythematous and tender to the dorsal aspect. The plantar surface of the right second toe is macerated with spontaneous purulent drainage present. I have ordered the following: admission w/u The patient will proceed to the ED for further evaluation. 09/03/18 16:26 09/03/18 16:27 Discharge Disposition - Diagnosis Osteomyelitis - Referrals - Patient Instructions - Post Discharge Activity
[2018-09-03] MEDS ORDERED: AZTREONAM 2 GM in DEXTROSE 5%-WATER 100 ML IVPB ONE (16:30)
[2018-09-03] MEDS ORDERED: VANCOMYCIN 1 GM in D5W (PRE-DOCKED) 1,000 MG/250 ML IVPB ONE (16:30)
--- NOTE | 2018-09-03 16:34 | PDOC ---
History of Present Illness - General Chief Complaint: Wound Stated Complaint: SENT BY HER DOCTOR Time Seen by Provider: 09/03/18 16:25 - History of Present Illness Initial Comments: 09/03/18 16:34 The patient is a 77 year old female with a PMH of IDDM, Peripheral neuropathy, HTN, HLD who presents to our ED with persistent R 3rd toe infection. Patient had an outpatient MRI @ [place] today and recieved a phone call that she needed to come to the ED for admission to the hospital. Denies any toe pain, fevers/chills. States she was in the hospital for infection in July and she completed her entire antibiotic course on discharge. ROS is positive for increased RLE swelling for the past 3 days. Allergy:Penicillin, ASA Surgery: bladder surgery Social: denies toxic habits PMD: Dr. Chloé Garcia M.D. Podiatry: [place] As per EMR, patient last evaluated in our ED in 07/2018 for R foot/toe pain at which time cultures grew MRSA. CT and MRI were negative for osteomyelitis, patient discharged on Doxycyline. MRI taken today shows RLE subcutaneous edema as well as R 2nd toe osteomyelitis. Past History - Past Medical History Allergies/Adverse Reactions: Allergies Allergy/AdvReac Type Severity Reaction Status Date / Time Penicillins Allergy Severe Hives Verified 09/03/18 16:31 aspirin AdvReac Intermediate Nausea,STOMACH Verified 09/03/18 16:31 PAIN Home Medications: Ambulatory Orders Metoprolol Succinate [Toprol XL -] 50 mg PO DAILY 10/02/14 Furosemide [Lasix] 20 mg PO DAILY 08/09/18 Insulin (Novolog 70/30) [Novolog Mix 70/30 Vial] 30 ml SQ AM 08/09/18 Atorvastatin Ca [Lipitor] 10 mg PO HS tablet 08/13/18 Doxycycline Hyclate 100 mg PO BID 12 Days #24 tablet 08/13/18 Enalapril Maleate [Vasotec -] 5 mg PO DAILY tablet 08/13/18 Insulin Sliding Scale [Novolog Vial Sliding Scale -] 1 vial SQ BID units Metoprolol Succinate [Toprol XL -] 50 mg PO DAILY tab.sr.24h 08/13/18 Anemia: No Asthma: No Cancer: No Cardiac Disorders: No CVA: No COPD: No CHF: No Dementia: No Diabetes: Yes (IDDM) GI Disorders: No Disorders: No HTN: Yes Hypercholesterolemia: Yes Liver Disease: No Seizures: No Thyroid Disease: No - Surgical History Abdominal Surgery: No Appendectomy: No Cardiac Surgery: No Cholecystectomy: No Lung Surgery: No Neurologic Surgery: No Orthopedic Surgery: No - Immunization History Immunization Up to Date: Yes - Suicide/Smoking/Psychosocial Hx Smoking Status: No Smoking History: Never smoked Have you smoked in the past 12 months: No Number of Cigarettes Smoked Daily: 0 Information on smoking cessation initiated: No Hx Alcohol Use: Yes (socially) Drug/Substance Use Hx: No Substance Use Type: None Hx Substance Use Treatment: No Review of Systems - Review of Systems Constitutional: No: Chills, Fever Respiratory: No: Cough, Shortness of Breath, Wheezing Cardiac (ROS): Yes: Edema (3 day h/o RLE edema). No: Chest Pain, Lightheadedness, Palpitations, Syncope ABD/GI: No: Constipated, Diarrhea, Nausea, Vomiting : No: Burning, Dysuria *Physical Exam - Vital Signs Last Vital Signs Temp Pulse Resp BP Pulse Ox 98.3 F 68 16 172/64 H 98 09/03/18 16:26 09/03/18 16:26 09/03/18 16:26 09/03/18 16:26 09/03/18 16:26 - Physical Exam Comments: 09/03/18 17:08 Awake, alert S1, S2, no M/R/G Lungs CLTA B/L 3+ RLE pitting edema from foot to knee with TTP, no calf tenderness; R plantar surface wound with pinpoint area of erythema 2+ DP pulse B/L Decreased sensation in lower extremities B/L Heart Score/ECG Review - ECG Impressions Comment:: 09/03/18 18:24 NSR HR 68, normal intervals, normal axis, no GLENDY/STD/TWI - non ischemic EKG ED Treatment Course - LABORATORY CBC & Chemistry Diagram: 09/03/18 17:24 09/03/18 17:24 Medical Decision Making - Medical Decision Making 09/03/18 16:52 77 year old female with R toe infection and new onset of RLE swelling. Afebrile, intitially hypertensive @ triage, repeat BP @ bedside 157/65 Will admit for IV antibiotics and obtain ultrasound to r/o RLE clot. ESR, CRP, basic labs pending. Reassess 09/03/18 17:44 No leukocytosis ESR, CRP, CMP pending Duplex pending 09/03/18 18:20 DVT negative - edema likely 2/2 to infection EKG non-ischemic as documented in EKG section of EMR 09/03/18 18:20 CRP 3.4 Will page hospitalist for admission. 09/03/18 18:24 09/03/18 19:01 Case d/w Dr. Peng, Hospitalist- states consults are up to admitting team; Patient admitted to inpatient medicine service for IV Abx. 09/03/18 19:20 Patient and patient's daughter counseled on plan of care Clinical Impression: Osteomyelitis *DC/Admit/Observation/Transfer Diagnosis at time of Disposition: Osteomyelitis - Referrals - Patient Instructions - Post Discharge Activity
[2018-09-03] MEDS ORDERED: AZTREONAM 1 GM VIAL (RESTRICTED TO ID) ONE (16:50)
[2018-09-03] MEDS ORDERED: VANCOMYCIN 1 GRAM (PRE-DOCKED) 1,000 MG/250 ML BAG IVPB ONE ×2 (16:50→18:08)
[2018-09-03] MEDS ORDERED: ACETAMINOPHEN 325 MG TABLET (FP) PO ONE (16:51)
--- NOTE | 2018-09-03 17:05 | PDOC ---
Attending Attestation - Resident Resident Name: GenaroLynn - ED Attending Attestation I have performed the following: I have examined & evaluated the patient, The case was reviewed & discussed with the resident, I agree w/resident's findings & plan, Exceptions are as noted - HPI HPI: 09/03/18 17:02 77yo F hx IDDM, HTN, HL, recent admission for R toe MRSA infection presents to the ED for osteomyelitis diagnosed on outpt MRI. Pt was called by Dr. Pedersen and advised to come to the ED for admission for IV abx and hyperbarics. On review of EMR, pt has bone marrow edema of right distal phalynx of second toe concerning for OM. Pt also reports 3 days of worsening redness and increasing swelling of the R foot and calf. Dnies fevers, chills, cp, sob, abd pain, focal weakness/numbness. - Physicial Exam PE: 09/03/18 17:13 agree with resident exam - Medical Decision Making 09/03/18 17:13 77yo F presents to the ED for admission for R foot osteomyelitis diagnosed on outpt MRI today. Pt also with new redness/edema of RLE. Likely due to infection , but will obtain US to r/o DVT. Anticipate admission. Heart Score/ECG Review #1 09/03/18 17:55 EKG read and interpreted by me: NSR, rate 62. Normal axis and intervals. No GLENDY or TWI
[2018-09-03] MEDS ORDERED: ACETAMINOPHEN 325 MG TABLET (FP) ONE (17:20)
[2018-09-03 17:38] LABS: BASO % 0.6 % (0-2.0); HEMATOCRIT 33.8 % (32.4-45.2); HEMOGLOBIN 11.5 GM/dL (10.7-15.3); LYMPH % 24.9 % (8-40); MCH 29.8 pg (25.7-33.7); MCHC 34.1 g/dl (32.0-36.0); MEAN CELL VOLUME 87.3 fl (80-96); MEAN PLT VOLUME 8.6 fl (7.5-11.1); NEUT % 53.5 % (42.8-82.8); PLATELET COUNT 239 K/MM3 (134-434); RBC 3.87 M/mm3 (3.60-5.2); RDW 13.9 % (11.6-15.6); WHITE BLOOD COUNT 8.4 K/mm3 (4.0-10.0)
[2018-09-03 18:19] LABS: ALBUMIN 3.1 g/dl (3.4-5.0); ALK PHOS 92 U/L (45-117); ANION GAP 6 MMOL/L (8-16); BILIRUBIN,TOTAL 0.8 mg/dL (0.2-1); BLOOD UREA NITROGEN 20 mg/dL (7-18); CALCIUM 8.5 mg/dL (8.5-10.1); CHLORIDE 101 mmol/L (98-107); CO2 28 mmol/L (21-32); CREATININE 0.8 mg/dL (0.55-1.3); GLUCOSE,RANDOM 185 mg/dL (74-106); POTASSIUM 3.9 mmol/L (3.5-5.1); SGOT/AST 21 U/L (15-37); SGPT/ALT 21 U/L (13-61); SODIUM 135 mmol/L (136-145); TOT PROT 7.5 g/dl (6.4-8.2)
--- NOTE | 2018-09-03 20:28 | HP ---
Admitting History and Physical - Primary Care Physician PCP: Chloé Garcia - Admission Chief Complaint: Right Toe Wound, Pain, Abnormal MRI Finding History of Present Illness: This is a 77 y/o woman with a past medical history of Hypertension, Hyperlipidemia, IDDM, Peripheral Neuropathy. Who presents to the ED with persistent right 2nd toe infection. Patient had an outpatient MRI @ [facility] today and received a phone call that she needed to come to the ED for admission to the hospital. Patient reports having increased RLE swelling for the past 3 days. Patient reports recent hospital admission for infection in July completing her entire antibiotic course on discharge. Patient denies toe pain, fevers,chills. Patient denies SOB, CP, palpitations, AP, N/V/D, constipation, dysuria. 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 Cardiovascular: Yes: HTN, Hyperlipdemia Infectious Disease: Yes: MRSA Endocrine: Yes: Diabetes Mellitus - Smoking History Smoking history: Never smoked Have you smoked in the past 12 months: No Aproximately how many cigarettes per day: 0 - Alcohol/Substance Use Hx Alcohol Use: Yes (socially) History of Substance Use: reports: None - Social History Usual Living Arrangement: Yes: With Child ADL: Independent History of Recent Travel: No Home Medications - Allergies Allergies/Adverse Reactions: Allergies Allergy/AdvReac Type Severity Reaction Status Date / Time Penicillins Allergy Severe Hives Verified 09/03/18 16:31 aspirin AdvReac Intermediate Nausea,STOMACH Verified 09/03/18 16:31 PAIN - Home Medications Home Medications: Ambulatory Orders Metoprolol Succinate [Toprol XL -] 50 mg PO DAILY 10/02/14 Furosemide [Lasix] 20 mg PO DAILY 08/09/18 Insulin (Novolog 70/30) [Novolog Mix 70/30 Vial] 30 ml SQ AM 08/09/18 Atorvastatin Ca [Lipitor] 10 mg PO HS tablet 08/13/18 Doxycycline Hyclate 100 mg PO BID 12 Days #24 tablet 08/13/18 Enalapril Maleate [Vasotec -] 5 mg PO DAILY tablet 08/13/18 Insulin Sliding Scale [Novolog Vial Sliding Scale -] 1 vial SQ BID units Metoprolol Succinate [Toprol XL -] 50 mg PO DAILY tab.sr.24h 08/13/18 Family Disease History - Family Disease History Family History: Unable to Obtain Review of Systems - Review of Systems Constitutional: reports: No Symptoms Eyes: reports: No Symptoms HENT: reports: No Symptoms Neck: reports: No Symptoms Cardiovascular: reports: Edema Respiratory: reports: No Symptoms Gastrointestinal: reports: No Symptoms Genitourinary: reports: No Symptoms Breasts: reports: No Symptoms Reported Musculoskeletal: reports: Extremity Pain, Joint Swelling Integumentary: reports: Eczema, Erythema Neurological: reports: Numbness Endocrine: reports: No Symptoms Hematology/Lymphatic: reports: No Symptoms Psychiatric: reports: No Symptoms Pain Intensity: 4 Physical Examination Vital Signs: Vital Signs Temperature 98.3 F 09/03/18 16:26 Pulse Rate 68 09/03/18 16:26 Respiratory Rate 16 09/03/18 16:26 Blood Pressure 172/64 H 09/03/18 16:26 O2 Sat by Pulse Oximetry (%) 98 09/03/18 16:26 Constitutional: Yes: Well Nourished, No Distress, Calm, Obese Eyes: Yes: WNL, Conjunctiva Clear, EOM Intact, PERRL HENT: Yes: WNL, Atraumatic, Normocephalic Neck: Yes: WNL, Supple, Trachea Midline Cardiovascular: Yes: WNL, Regular Rate and Rhythm, S1, S2 Respiratory: Yes: WNL, Regular, CTA Bilaterally Gastrointestinal: Yes: WNL, Normal Bowel Sounds, Soft, Abdomen, Obese Renal/: Yes: WNL Breast(s): Yes: WNL Extremities: Yes: Erythema (RLE) Edema: Yes Edema: LLE: 2+, RLE: 3+ Peripheral Pulses WNL: Yes Integumentary: Yes: Erythema Wound/Incision: Yes: Open to air (R- 2nd Toe, dry ulcer to distal aspect) Neurological: Yes: WNL, Alert, Oriented, Cran Nerves II-XII Intact ...Motor Strength: WNL Psychiatric: Yes: WNL, Alert, Oriented Labs: CBC, BMP 09/03/18 17:24 09/03/18 17:24 Laboratory Results - last 24 hr 09/03/18 09/03/18 09/03/18 17:24 17:24 17:25 WBC 8.4 RBC 3.87 Hgb 11.5 Hct 33.8 D MCV 87.3 MCH 29.8 MCHC 34.1 RDW 13.9 Plt Count 239 MPV 8.6 Absolute Neuts (auto) 4.5 Neutrophils % 53.5 Lymphocytes % 24.9 Monocytes % 13.0 H Eosinophils % 8.0 H Basophils % 0.6 Nucleated RBC % 0 ESR 99 H Sodium 135 L Potassium 3.9 Chloride 101 Carbon Dioxide 28 Anion Gap 6 L BUN 20 H Creatinine 0.8 Creat Clearance w eGFR 69.19 Random Glucose 185 H Calcium 8.5 Total Bilirubin 0.8 AST 21 ALT 21 Alkaline Phosphatase 92 C-Reactive Protein 3.4 H Total Protein 7.5 Albumin 3.1 L Urine Color Urine Appearance Urine pH Ur Specific [place] Urine Protein Urine Glucose (UA) Urine Ketones Urine Blood Urine Nitrite Urine Bilirubin Urine Urobilinogen Ur Leukocyte Esterase Urine WBC (Auto) Urine RBC (Auto) Urine Casts (Auto) U Epithel Cells (Auto) Urine Bacteria (Auto) 09/03/18 21:09 WBC RBC Hgb Hct MCV MCH MCHC RDW Plt Count MPV Absolute Neuts (auto) Neutrophils % Lymphocytes % Monocytes % Eosinophils % Basophils % Nucleated RBC % ESR Sodium Potassium Chloride Carbon Dioxide Anion Gap BUN Creatinine Creat Clearance w eGFR Random Glucose Calcium Total Bilirubin AST ALT Alkaline Phosphatase C-Reactive Protein Total Protein Albumin Urine Color Yellow Urine Appearance Clear Urine pH 5.0 D Ur Specific [place] 1.008 L Urine Protein Negative Urine Glucose (UA) Negative Urine Ketones Negative Urine Blood Negative Urine Nitrite Negative Urine Bilirubin Negative Urine Urobilinogen 0.2 Ur Leukocyte Esterase Trace Urine WBC (Auto) 2 Urine RBC (Auto) 1 Urine Casts (Auto) 1 U Epithel Cells (Auto) 0.8 Urine Bacteria (Auto) 7.3 Intake & Output 09/01/18 09/02/18 09/03/18 09/04/18 23:59 23:59 23:59 23:59 Weight 77.111 kg 79.861 kg Current Medications Generic Name Dose Route Start Last Admin Trade Name Freq PRN Reason Stop Dose Admin Atorvastatin Calcium 10 mg 09/03/18 23:30 09/04/18 00:01 Lipitor - PO 10 mg HS MANUELA Administration Enalapril Maleate 5 mg 09/04/18 10:00 Vasotec - PO DAILY [facility] Furosemide 40 mg 09/04/18 10:00 Lasix - PO DAILY [facility] Heparin Sodium (Porcine) 5,000 unit 09/03/18 22:00 09/03/18 22:15 Heparin - SQ Not Given BID [facility] Insulin Aspart 3,000 units 09/04/18 07:00 Novolog Mix 70/30 Vial SQ AM [facility] Metoprolol Succinate 50 mg 09/04/18 10:00 Toprol Xl - PO DAILY [facility] Imaging - Results Chest X-ray: Image Reviewed (No infiltrate, no effusion) Ultrasound: Report Reviewed (No DVT of R- Leg), Image Reviewed EKG: Image Reviewed (NSR no ST changes) Problem List - Problems (1) Osteomyelitis Assessment/Plan: MRI- RLE subcutaneous edema, R- 2nd toe Osteo ESR 99 CRP 3.4 Vancomycin and Aztreonam given in ED Continue ABX Wound culture 08/08/18-MRSA R- 2nd toe Appreciate Vascular consult Appreciate Podiatry consult Appreciate ID consult Monitor CBC Monitor vitals Code(s): M86.9 - OSTEOMYELITIS, UNSPECIFIED (2) Cellulitis and abscess of right lower extremity Assessment/Plan: Blood Cultures-pending Vancomycin and Aztreonam given in ED, will continue Appreciate ID consult Wells Score 2 Duplex LE- neg DVT Monitor CBC Monitor vitals Elevate extremity Tylenol prn Code(s): L03.115 - CELLULITIS OF RIGHT LOWER LIMB; L02.415 - CUTANEOUS ABSCESS OF RIGHT LOWER LIMB (3) Insulin dependent diabetes mellitus Assessment/Plan: Stable BGMs Continue Novolog 70/30 am dose, will have day team review PM dose ISS Code(s): E11.9 - TYPE 2 DIABETES MELLITUS WITHOUT COMPLICATIONS; Z79.4 - ALF (CURRENT) USE OF INSULIN (4) HTN (hypertension) Assessment/Plan: Stable Monitor BP Continue Metoprolol, Enalapril Monitor renal function Code(s): I10 - ESSENTIAL (PRIMARY) HYPERTENSION Qualifiers: Hypertension type: essential hypertension Qualified Code(s): I10 - Essential (primary) hypertension (5) HLD (hyperlipidemia) Assessment/Plan: Stable Continue Lipitor Monitor LFTs Code(s): E78.5 - HYPERLIPIDEMIA, UNSPECIFIED Assessment/Plan This is a 77 y/o woman with a PMHx of: HTN, HLD, IDDM, Peripheral Neuropathy. Admitted for Osteomyelitis, Cellulitis of Right Lower Leg for further evaluation of their emergent condition. Plan: See Problem List FEN PO fluids as tolerated Replete lytes prn Low Na Diabetic Diet DVT ppx OOB SCDs Heparin SQ Dispo: Requires Inpatient Care Visit type - Emergency Visit Emergency Visit: Yes ED Registration Date: 09/03/18 Care time: The patient presented to the Emergency Department on the above date and was hospitalized for further evaluation of their emergent condition. - New Patient This patient is new to me today: Yes Date on this admission: 09/03/18 - Critical Care Critical Care patient: No
[2018-09-03 22:03] LABS: EPI CELLS 0.8 /HPF (0-5/HPF); URINE APPEARANCE CLEAR; URINE BACTERIA 7.3 /hpf (NEGATIVE); URINE BILIRUBIN NEGATIVE (NEGATIVE); URINE CASTS 1 /lpf (0-8); URINE COLOR YELLOW; URINE GLUCOSE (UA) NEGATIVE (NEGATIVE); URINE KETONE NEGATIVE (NEGATIVE); URINE LEUK ESTERASE TRACE (NEGATIVE); URINE NITRITE NEGATIVE (NEGATIVE); URINE PROTEIN NEGATIVE (NEGATIVE); URINE RBC 1 /hpf (0-4); URINE UROBILINOGEN 0.2 mg/dL (0.2-1.0); URINE WBC 2 /hpf (0-5)
[2018-09-03] MEDS: HEPARIN NA (PORCINE) 5,000 UNITS/ML 1ML VIAL SQ SCH (22:15)
[2018-09-03] MEDS ORDERED: guaiFENesin/D-METHORPHAN HB 10 ML UNIT-DOSE CUPS PO ONE (23:03)
[2018-09-03] MEDS ORDERED: ATORVASTATIN CA 10 MG TABLET (FP) ONE (23:57)
[2018-09-03] MEDS ORDERED: guaiFENesin 200 MG/10 ML 10 ML UNIT-DOSE CUPS ONE (23:57)
[2018-09-04] MEDS: ATORVASTATIN CA 10 MG TABLET (FP) PO SCH ×2 (00:01→21:14)
[2018-09-04 02:42] VITALS: BMI 34.4
[2018-09-04] MEDS ORDERED: INSULIN (NOVOLOG MIX 70/30) 100 UNITS/ML MDV SQ SCH ×2 (07:00→07:42)
[2018-09-04 07:16] LABS: ANION GAP 6 MMOL/L (8-16); BASO % 0.8 % (0-2.0); BLOOD UREA NITROGEN 14 mg/dL (7-18); CALCIUM 8.3 mg/dL (8.5-10.1); CHLORIDE 102 mmol/L (98-107); CO2 29 mmol/L (21-32); CREATININE 0.6 mg/dL (0.55-1.3); EOS % 8.5 % (0-4.5); GLUCOSE,RANDOM 231 mg/dL (74-106); HEMATOCRIT 33.7 % (32.4-45.2); HEMOGLOBIN 11.7 GM/dL (10.7-15.3); LYMPH % 16.2 % (8-40); MCHC 34.7 g/dl (32.0-36.0); MEAN CELL VOLUME 86.6 fl (80-96); MEAN PLT VOLUME 8.7 fl (7.5-11.1); MONO % 11.3 % (3.8-10.2); NEUT % 63.2 % (42.8-82.8); PLATELET COUNT 212 K/MM3 (134-434); POTASSIUM 3.9 mmol/L (3.5-5.1); RBC 3.89 M/mm3 (3.60-5.2); RDW 13.8 % (11.6-15.6); SODIUM 136 mmol/L (136-145); WHITE BLOOD COUNT 6.5 K/mm3 (4.0-10.0)
[2018-09-04] MEDS: HEPARIN NA (PORCINE) 5,000 UNITS/ML 1ML VIAL SQ SCH ×2 (10:28→21:14)
[2018-09-04] MEDS: ENALAPRIL MALEATE 5 MG TABLET (FP) PO SCH (10:29)
[2018-09-04] MEDS: FUROSEMIDE 40 MG TABLET (FP) PO SCH (10:29)
--- NOTE | 2018-09-04 11:03 | CONSULT ---
- Consultation REQUESTING PROVIDER: CONSULT REQUEST: We have been asked to surgically evaluate this patient for right toe osteomyelitis. PCP:Chloé Garcia HISTORY OF PRESENT ILLNESS:The patient is a 77 yo female who has had a toe infection for the past 2 months. She was admitted to [facility] for a toe infection in July 2018. MRI at that time, didn't reveal any osteomyelitits although there was soft tissue swelling. She has been caring for her toe by applying what she describes as betadine solution. She was referred to the ER for worsening of her right lower ext pain, swelling and erythema symptoms. In addition a repeat MRI from 09/03 revealed a osteomyelitits in her 2nd toe. The patient states that since she was admitted the erythema has improved. Her foot still remains tender and swollen. She is ambulatory without any assist devices. No fevers, chills, SOB or CP. Some dysuria no hemturia. PMHx: diabetes(insulin dependent) , osteoarthritis in b/l knees. Left LLE ulcer(healed) PSHx: denies Home Medications Medication Instructions Recorded Metoprolol Succinate [Toprol XL -] 50 mg PO DAILY 10/02/14 Furosemide [Lasix] 20 mg PO DAILY 08/09/18 Insulin (Novolog 70/30) [Novolog 30 ml SQ AM 08/09/18 Mix 70/30 Vial] Atorvastatin Ca [Lipitor] 10 mg PO HS tablet 08/13/18 Doxycycline Hyclate 100 mg PO BID 12 Days #24 tablet 08/13/18 Enalapril Maleate [Vasotec -] 5 mg PO DAILY tablet 08/13/18 Insulin Sliding Scale [Novolog 1 vial SQ BID units 08/13/18 Vial Sliding Scale -] Metoprolol Succinate [Toprol XL -] 50 mg PO DAILY tab.sr.24h 08/13/18 Allergies Allergy/AdvReac Type Severity Reaction Status Date / Time Penicillins Allergy Severe Hives Verified 09/03/18 16:31 aspirin AdvReac Intermediate Nausea,STOMACH Verified 09/03/18 16:31 PAIN REVIEW OF SYSTEMS: CONSTITUTIONAL: Absent: fever, chills CARDIOVASCULAR: Absent: chest pain, palpitations RESPIRATORY: Present: cough Absent: SOB GASTROINTESTINAL: Absent: abdominal pain, abdominal distension, nausea, vomiting GENITOURINARY: Present: dysuria Absent: hematuria MUSCULOSKELETAL: Present: bilateral knee pain PHYSICAL EXAM: GENERAL: Awake, alert, and fully oriented, in no acute distress. LUNGS: Clear to auscultation bilat anteriorly. No wheezes, and no crackles. No accessory muscle use. HEART: Regular rate and rhythm. No murmurs ABDOMEN: Soft, nontender, not distended. LOWER EXTREMITIES: LLE 2+ pulses, warm, well-perfused. No eryhtema or ulcers noted. RLE: swollen +3 pitting edema to foot/ankle and calf. No calf tenderness. Mild erythema to mid ochoa. 2nd toe with dry ulcer at the distal tip of the toe. NEUROLOGICAL: Normal speech, gait not observed. PSYCH: Cooperative. Good eye contact. Appropriate mood and affect. Vital Signs Temperature 98.4 F 09/04/18 09:00 Pulse Rate 72 09/04/18 09:00 Respiratory Rate 19 09/04/18 09:00 Blood Pressure 154/70 09/04/18 09:00 O2 Sat by Pulse Oximetry (%) 99 09/04/18 00:27 Lab Results WBC 6.5 K/mm3 (4.0-10.0) 09/04/18 06:20 RBC 3.89 M/mm3 (3.60-5.2) 09/04/18 06:20 Hgb 11.7 GM/dL (10.7-15.3) 09/04/18 06:20 Hct 33.7 % (32.4-45.2) 09/04/18 06:20 MCV 86.6 fl (80-96) 09/04/18 06:20 MCHC 34.7 g/dl (32.0-36.0) 09/04/18 06:20 RDW 13.8 % (11.6-15.6) 09/04/18 06:20 Plt Count 212 K/MM3 (134-434) 09/04/18 06:20 Sodium 136 mmol/L (136-145) 09/04/18 06:20 Potassium 3.9 mmol/L (3.5-5.1) 09/04/18 06:20 Chloride 102 mmol/L (98-107) 09/04/18 06:20 Carbon Dioxide 29 mmol/L (21-32) 09/04/18 06:20 Anion Gap 6 MMOL/L (8-16) L 09/04/18 06:20 BUN 14 mg/dL (7-18) 09/04/18 06:20 Creatinine 0.6 mg/dL (0.55-1.3) 09/04/18 06:20 Random Glucose 231 mg/dL (74-106) H 09/04/18 06:20 Calcium 8.3 mg/dL (8.5-10.1) L 09/04/18 06:20 Laboratory Tests 09/03/18 21:09 Urine Color Yellow Urine Appearance Clear Urine pH 5.0 D Ur Specific [place] 1.008 L Urine Protein Negative Urine Glucose (UA) Negative Urine Ketones Negative Urine Blood Negative Urine Nitrite Negative Urine Bilirubin Negative Urine Urobilinogen 0.2 Ur Leukocyte Esterase Trace Urine WBC (Auto) 2 Urine RBC (Auto) 1 Urine Casts (Auto) 1 U Epithel Cells (Auto) 0.8 Urine Bacteria (Auto) 7.3 Microbiology 08/08/18 20:25 Toe - Right Second Gram Stain - Final 08/08/18 20:25 Toe - Right Second Wound Culture - Final Alpha Hemolytic Streptococcus Staphylococcus Coagulase Neg Mr S Aureus Microbiology wound and blood culture pending Duplex of RLE: 09/03-no evidence of DVT MRI of RLE 09/03-soft tissue edema of distal ankle/calf. 2nd toe with bome marrow edema c/w osteomyelitis A/p: 77 yo female with a h/o diabetes and chronic right toe infection/ osteomyelitis. RLE cellulitis The patient has palpable pulses, no surgical intervention needed by vascular surgery Management of toe osteomyelitis as per podiatry IV abx as per ID, pt receiving IV Vanco Elevate RLE at all times Local wound care as per podiatry D/w Dr. Clement and agreess with the plan and care of the patient. Reconsult vascular surgery as needed.
--- NOTE | 2018-09-04 11:05 | EKG ---
Test Reason : Blood Pressure : / mmHG Vent. Rate : 062 BPM Atrial Rate : 062 BPM P-R Int : 198 ms QRS Dur : 100 ms QT Int : 422 ms P-R-T Axes : 070 008 030 degrees QTc Int : 428 ms NORMAL SINUS RHYTHM NORMAL ECG WHEN COMPARED WITH ECG OF 08-AUG-2018 20:40, NO SIGNIFICANT CHANGE WAS FOUND Confirmed by MD Andrew Edward ([id number]) on 09/04/2018 11:05:06 AM Referred By: Confirmed By:Naveen Andrew MD
--- NOTE | 2018-09-04 11:52 | PN ---
Progress Note (short form) - Note Progress Note: Events noted has pain in right leg Sono negative for DVT completed PO antibiotics-=- as outpt for osteomyelitis no drainage from 2nd toe wound Vital Signs - 24 hr 09/03/18 09/03/18 09/04/18 16:26 20:28 00:04 Temperature 98.3 F 98.1 F Pulse Rate 68 Pulse Rate [ 70 Left Apical] Respiratory 16 20 18 Rate Blood Pressure 172/64 H Blood Pressure 166/70 [Left Arm] O2 Sat by Pulse 98 99 98 Oximetry (%) 09/04/18 09/04/18 09/04/18 00:27 02:20 06:00 Temperature 97.9 F 97.5 F L 98.4 F Pulse Rate 75 73 Pulse Rate [ 66 Left Apical] Respiratory 18 18 18 Rate Blood Pressure 155/72 150/66 Blood Pressure 154/68 [Left Arm] O2 Sat by Pulse 99 Oximetry (%) 09/04/18 09:00 Temperature 98.4 F Pulse Rate 72 Pulse Rate [ Left Apical] Respiratory 19 Rate Blood Pressure 154/70 Blood Pressure [Left Arm] O2 Sat by Pulse Oximetry (%) Current Medications Generic Name Dose Route Start Last Admin Trade Name Freq PRN Reason Stop Dose Admin Atorvastatin Calcium 10 mg 09/03/18 23:30 09/04/18 00:01 Lipitor - PO 10 mg HS MANUELA Administration Enalapril Maleate 5 mg 09/04/18 10:00 09/04/18 10:29 Vasotec - PO 5 mg DAILY [facility]UELA Administration Furosemide 40 mg 09/04/18 10:00 09/04/18 10:29 Lasix - PO 40 mg DAILY [facility]A Administration Heparin Sodium (Porcine) 5,000 unit 09/03/18 22:00 09/04/18 10:28 Heparin - SQ 5,000 unit BID MANUELA Administration Insulin Aspart 30 units 09/04/18 07:42 Novolog Mix 70/30 Vial SQ AM [facility]A Insulin Aspart 0 units 09/04/18 16:30 Novolog Vial SQ ACHS [facility] Protocol Metoprolol Succinate 50 mg 09/04/18 10:00 09/04/18 10:29 Toprol Xl - PO 50 mg DAILY MANUELA Administration Laboratory Results - last 24 hr 09/03/18 09/03/18 09/03/18 17:24 17:24 17:25 WBC 8.4 RBC 3.87 Hgb 11.5 Hct 33.8 D MCV 87.3 MCH 29.8 MCHC 34.1 RDW 13.9 Plt Count 239 MPV 8.6 Absolute Neuts (auto) 4.5 Neutrophils % 53.5 Lymphocytes % 24.9 Monocytes % 13.0 H Eosinophils % 8.0 H Basophils % 0.6 Nucleated RBC % 0 ESR 99 H Sodium 135 L Potassium 3.9 Chloride 101 Carbon Dioxide 28 Anion Gap 6 L BUN 20 H Creatinine 0.8 Creat Clearance w eGFR 69.19 POC Glucometer Random Glucose 185 H Calcium 8.5 Total Bilirubin 0.8 AST 21 ALT 21 Alkaline Phosphatase 92 C-Reactive Protein 3.4 H Total Protein 7.5 Albumin 3.1 L Urine Color Urine Appearance Urine pH Ur Specific [place] Urine Protein Urine Glucose (UA) Urine Ketones Urine Blood Urine Nitrite Urine Bilirubin Urine Urobilinogen Ur Leukocyte Esterase Urine WBC (Auto) Urine RBC (Auto) Urine Casts (Auto) U Epithel Cells (Auto) Urine Bacteria (Auto) 09/03/18 09/04/18 09/04/18 21:09 06:20 06:20 WBC 6.5 RBC 3.89 Hgb 11.7 Hct 33.7 MCV 86.6 MCH 30.0 MCHC 34.7 RDW 13.8 Plt Count 212 MPV 8.7 Absolute Neuts (auto) 4.1 Neutrophils % 63.2 Lymphocytes % 16.2 D Monocytes % 11.3 H Eosinophils % 8.5 H Basophils % 0.8 Nucleated RBC % 0 ESR Sodium 136 Potassium 3.9 Chloride 102 Carbon Dioxide 29 Anion Gap 6 L BUN 14 Creatinine 0.6 Creat Clearance w eGFR 96.44 POC Glucometer Random Glucose 231 H Calcium 8.3 L Total Bilirubin AST ALT Alkaline Phosphatase C-Reactive Protein Total Protein Albumin Urine Color Yellow Urine Appearance Clear Urine pH 5.0 D Ur Specific [place] 1.008 L Urine Protein Negative Urine Glucose (UA) Negative Urine Ketones Negative Urine Blood Negative Urine Nitrite Negative Urine Bilirubin Negative Urine Urobilinogen 0.2 Ur Leukocyte Esterase Trace Urine WBC (Auto) 2 Urine RBC (Auto) 1 Urine Casts (Auto) 1 U Epithel Cells (Auto) 0.8 Urine Bacteria (Auto) 7.3 09/04/18 11:26 WBC RBC Hgb Hct MCV MCH MCHC RDW Plt Count MPV Absolute Neuts (auto) Neutrophils % Lymphocytes % Monocytes % Eosinophils % Basophils % Nucleated RBC % ESR Sodium Potassium Chloride Carbon Dioxide Anion Gap BUN Creatinine Creat Clearance w eGFR POC Glucometer 381 Random Glucose Calcium Total Bilirubin AST ALT Alkaline Phosphatase C-Reactive Protein Total Protein Albumin Urine Color Urine Appearance Urine pH Ur Specific [place] Urine Protein Urine Glucose (UA) Urine Ketones Urine Blood Urine Nitrite Urine Bilirubin Urine Urobilinogen Ur Leukocyte Esterase Urine WBC (Auto) Urine RBC (Auto) Urine Casts (Auto) U Epithel Cells (Auto) Urine Bacteria (Auto) Laboratory Results - last 24 hr 09/03/18 09/03/18 09/03/18 17:24 17:24 17:25 WBC 8.4 RBC 3.87 Hgb 11.5 Hct 33.8 D MCV 87.3 MCH 29.8 MCHC 34.1 RDW 13.9 Plt Count 239 MPV 8.6 Absolute Neuts (auto) 4.5 Neutrophils % 53.5 Lymphocytes % 24.9 Monocytes % 13.0 H Eosinophils % 8.0 H Basophils % 0.6 Nucleated RBC % 0 ESR 99 H Sodium 135 L Potassium 3.9 Chloride 101 Carbon Dioxide 28 Anion Gap 6 L BUN 20 H Creatinine 0.8 Creat Clearance w eGFR 69.19 POC Glucometer Random Glucose 185 H Calcium 8.5 Total Bilirubin 0.8 AST 21 ALT 21 Alkaline Phosphatase 92 C-Reactive Protein 3.4 H Total Protein 7.5 Albumin 3.1 L Urine Color Urine Appearance Urine pH Ur Specific [place] Urine Protein Urine Glucose (UA) Urine Ketones Urine Blood Urine Nitrite Urine Bilirubin Urine Urobilinogen Ur Leukocyte Esterase Urine WBC (Auto) Urine RBC (Auto) Urine Casts (Auto) U Epithel Cells (Auto) Urine Bacteria (Auto) 09/03/18 09/04/18 09/04/18 21:09 06:20 06:20 WBC 6.5 RBC 3.89 Hgb 11.7 Hct 33.7 MCV 86.6 MCH 30.0 MCHC 34.7 RDW 13.8 Plt Count 212 MPV 8.7 Absolute Neuts (auto) 4.1 Neutrophils % 63.2 Lymphocytes % 16.2 D Monocytes % 11.3 H Eosinophils % 8.5 H Basophils % 0.8 Nucleated RBC % 0 ESR Sodium 136 Potassium 3.9 Chloride 102 Carbon Dioxide 29 Anion Gap 6 L BUN 14 Creatinine 0.6 Creat Clearance w eGFR 96.44 POC Glucometer Random Glucose 231 H Calcium 8.3 L Total Bilirubin AST ALT Alkaline Phosphatase C-Reactive Protein Total Protein Albumin Urine Color Yellow Urine Appearance Clear Urine pH 5.0 D Ur Specific [place] 1.008 L Urine Protein Negative Urine Glucose (UA) Negative Urine Ketones Negative Urine Blood Negative Urine Nitrite Negative Urine Bilirubin Negative Urine Urobilinogen 0.2 Ur Leukocyte Esterase Trace Urine WBC (Auto) 2 Urine RBC (Auto) 1 Urine Casts (Auto) 1 U Epithel Cells (Auto) 0.8 Urine Bacteria (Auto) 7.3 09/04/18 11:26 WBC RBC Hgb Hct MCV MCH MCHC RDW Plt Count MPV Absolute Neuts (auto) Neutrophils % Lymphocytes % Monocytes % Eosinophils % Basophils % Nucleated RBC % ESR Sodium Potassium Chloride Carbon Dioxide Anion Gap BUN Creatinine Creat Clearance w eGFR POC Glucometer 381 Random Glucose Calcium Total Bilirubin AST ALT Alkaline Phosphatase C-Reactive Protein Total Protein Albumin Urine Color Urine Appearance Urine pH Ur Specific [place] Urine Protein Urine Glucose (UA) Urine Ketones Urine Blood Urine Nitrite Urine Bilirubin Urine Urobilinogen Ur Leukocyte Esterase Urine WBC (Auto) Urine RBC (Auto) Urine Casts (Auto) U Epithel Cells (Auto) Urine Bacteria (Auto) no pallor S1 S2 RRR Lungs clear Abd- soft, NT edema right leg, erythema +warm and tender+ Rt foot examined-- 2nd toe-- swollen and tender , open wound seen, no drainage PLAN Cellulitis Osteomyelitis--persistent DM HTN -- meds reviewed -- iv antibiotics -- contact isolation for MRSA wound -- will need iv antibiotics , picc line on discharge most probably -- ID and podiatry eval --- vascular eval appreciated -- check A1C Problem List - Problems (1) Cellulitis and abscess of right lower extremity Code(s): L03.115 - CELLULITIS OF RIGHT LOWER LIMB; L02.415 - CUTANEOUS ABSCESS OF RIGHT LOWER LIMB (2) HLD (hyperlipidemia) Code(s): E78.5 - HYPERLIPIDEMIA, UNSPECIFIED (3) Osteomyelitis Code(s): M86.9 - OSTEOMYELITIS, UNSPECIFIED (4) HTN (hypertension) Code(s): I10 - ESSENTIAL (PRIMARY) HYPERTENSION Qualifiers: Hypertension type: essential hypertension Qualified Code(s): I10 - Essential (primary) hypertension (5) Insulin dependent diabetes mellitus Code(s): E11.9 - TYPE 2 DIABETES MELLITUS WITHOUT COMPLICATIONS; Z79.4 - DETENTION (CURRENT) USE OF INSULIN
[2018-09-04] MEDS ORDERED: VANCOMYCIN 1 GM in D5W (PRE-DOCKED) 1,000 MG/250 ML IVPB SCH (12:30)
[2018-09-04] MEDS ORDERED: VANCOMYCIN 1 GM PREMIX - 1 GM/200 ML BAG IVPB ONE (12:45)
[2018-09-04] MEDS: INSULIN SLIDING SCALE (NOVOLOG) 1 VIAL SQ SCH ×3 (12:46→21:04)
[2018-09-04] MEDS ORDERED: VANCOMYCIN 1 GM PREMIX - 1 GM/200 ML BAG IVPB SCH (13:00)
--- NOTE | 2018-09-04 13:09 | CON.ID ---
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: Peripheral Neuropathy Cardio/Vascular: Yes: HTN, Hyperlipdemia Infectious Disease: Yes: MRSA Endocrine: Yes: Diabetes Mellitus - Alcohol/Substance Use Hx Alcohol Use: Yes (socially) History of Substance Use: reports: None - Smoking History Smoking history: Never smoked Have you smoked in the past 12 months: No Aproximately how many cigarettes per day: 0 - Social History ADL: Independent History of Recent Travel: No Home Medications - Allergies Allergies/Adverse Reactions: Allergies Allergy/AdvReac Type Severity Reaction Status Date / Time Penicillins Allergy Severe Hives Verified 09/03/18 16:31 aspirin AdvReac Intermediate Nausea,STOMACH Verified 09/03/18 16:31 PAIN - Home Medications Home Medications: Ambulatory Orders Metoprolol Succinate [Toprol XL -] 50 mg PO DAILY 10/02/14 Furosemide [Lasix] 20 mg PO DAILY 08/09/18 Insulin (Novolog 70/30) [Novolog Mix 70/30 Vial] 30 ml SQ AM 08/09/18 Atorvastatin Ca [Lipitor] 10 mg PO HS tablet 08/13/18 Doxycycline Hyclate 100 mg PO BID 12 Days #24 tablet 08/13/18 Enalapril Maleate [Vasotec -] 5 mg PO DAILY tablet 08/13/18 Insulin Sliding Scale [Novolog Vial Sliding Scale -] 1 vial SQ BID units Metoprolol Succinate [Toprol XL -] 50 mg PO DAILY tab.sr.24h 08/13/18 Physical Exam Vital Signs: Vital Signs Temperature 98.4 F 09/04/18 09:00 Pulse Rate 72 09/04/18 09:00 Respiratory Rate 19 09/04/18 09:00 Blood Pressure 154/70 09/04/18 09:00 O2 Sat by Pulse Oximetry (%) 99 09/04/18 00:27 Labs: CBC, BMP 09/04/18 06:20 09/04/18 06:20
--- NOTE | 2018-09-04 14:07 | CONSULT ---
Consult Consult Specialty:: Podiatry Reason for Consultation:: Chronic wound OM right 2nd toe - History of Present Illness Chief Complaint: OM 2nd toe right History of Present Illness: chronic non healing wound right 2nd toe. 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 Cardio/Vascular: Yes: HTN, Hyperlipdemia Infectious Disease: Yes: MRSA Endocrine: Yes: Diabetes Mellitus - Alcohol/Substance Use Hx Alcohol Use: Yes (socially) History of Substance Use: reports: None - Smoking History Smoking history: Never smoked Have you smoked in the past 12 months: No Aproximately how many cigarettes per day: 0 - Social History ADL: Independent History of Recent Travel: No Home Medications - Allergies Allergies/Adverse Reactions: Allergies Allergy/AdvReac Type Severity Reaction Status Date / Time Penicillins Allergy Severe Hives Verified 09/03/18 16:31 aspirin AdvReac Intermediate Nausea,STOMACH Verified 09/03/18 16:31 PAIN - Home Medications Home Medications: Ambulatory Orders Metoprolol Succinate [Toprol XL -] 50 mg PO DAILY 10/02/14 Furosemide [Lasix] 20 mg PO DAILY 08/09/18 Insulin (Novolog 70/30) [Novolog Mix 70/30 Vial] 30 ml SQ AM 08/09/18 Atorvastatin Ca [Lipitor] 10 mg PO HS tablet 08/13/18 Doxycycline Hyclate 100 mg PO BID 12 Days #24 tablet 08/13/18 Enalapril Maleate [Vasotec -] 5 mg PO DAILY tablet 08/13/18 Insulin Sliding Scale [Novolog Vial Sliding Scale -] 1 vial SQ BID units Metoprolol Succinate [Toprol XL -] 50 mg PO DAILY tab.sr.24h 08/13/18 Physical Exam Vital Signs: Vital Signs Temperature 97.8 F 09/04/18 13:58 Pulse Rate 71 09/04/18 13:58 Respiratory Rate 20 09/04/18 13:58 Blood Pressure 143/55 L 09/04/18 13:58 O2 Sat by Pulse Oximetry (%) 99 09/04/18 00:27 Extremities: Yes: Other (+om 2nd toe right, +grade 3 wound) Labs: CBC, BMP 09/04/18 06:20 09/04/18 06:20 Assessment/Plan 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 Discussed with ID. Galarza dressing change to 2nd toe right. Will follow. No surgical intervention by me at this time.
[2018-09-04] MEDS: VANCOMYCIN HCL 1,250 MG in DEXTROSE 5%-WATER - 250 ML IVPB SCH (14:10)
[2018-09-04] MEDS ORDERED: INSULIN SLIDING SCALE (NOVOLOG) 1 VIAL SQ SCH (16:30)
[2018-09-04] MEDS ORDERED: INSULIN (NOVOLOG) ASPART 100 UNITS/ML 10ML VIAL ONE (21:02)
[2018-09-04] MEDS: INSULIN (LEVEMIR) 100 UNITS/ML UNITS SQ SCH (23:18)
[2018-09-05] MEDS: INSULIN SLIDING SCALE (NOVOLOG) 1 VIAL SQ SCH ×4 (06:27→21:28)
[2018-09-05] MEDS: INSULIN (NOVOLOG MIX 70/30) 100 UNITS/ML MDV SQ SCH ×2 (06:27→17:18)
[2018-09-05 06:43] LABS: BASO % 0.7 % (0-2.0); EOS % 7.7 % (0-4.5); HEMATOCRIT 34.4 % (32.4-45.2); HEMOGLOBIN 11.7 GM/dL (10.7-15.3); LYMPH % 22.7 % (8-40); MCH 29.6 pg (25.7-33.7); MCHC 34.1 g/dl (32.0-36.0); MEAN CELL VOLUME 86.7 fl (80-96); MEAN PLT VOLUME 8.8 fl (7.5-11.1); MONO % 12.6 % (3.8-10.2); NEUT % 56.3 % (42.8-82.8); PLATELET COUNT 228 K/MM3 (134-434); RBC 3.96 M/mm3 (3.60-5.2); RDW 13.5 % (11.6-15.6); WHITE BLOOD COUNT 6.6 K/mm3 (4.0-10.0)
[2018-09-05 06:57] LABS: ALBUMIN 2.8 g/dl (3.4-5.0); ALK PHOS 90 U/L (45-117); ANION GAP 7 MMOL/L (8-16); BILIRUBIN,TOTAL 0.9 mg/dL (0.2-1); BLOOD UREA NITROGEN 17 mg/dL (7-18); CALCIUM 8.5 mg/dL (8.5-10.1); CHLORIDE 101 mmol/L (98-107); CO2 29 mmol/L (21-32); CREATININE 0.8 mg/dL (0.55-1.3); GLUCOSE,RANDOM 250 mg/dL (74-106); POTASSIUM 3.7 mmol/L (3.5-5.1); SGOT/AST 19 U/L (15-37); SGPT/ALT 19 U/L (13-61); SODIUM 137 mmol/L (136-145); TOT PROT 6.8 g/dl (6.4-8.2)
--- NOTE | 2018-09-05 08:35 | PN ---
Progress Note, Physician History of Present Illness: patient stable leg swelling better - Current Medication List Current Medications: Active Medications Atorvastatin Calcium (Lipitor -) 10 mg PO HS [facility] Last Admin: 09/04/18 21:14 Dose: 10 mg Enalapril Maleate (Vasotec -) 5 mg PO DAILY [facility] Last Admin: 09/04/18 10:29 Dose: 5 mg Furosemide (Lasix -) 40 mg PO DAILY [facility] Last Admin: 09/04/18 10:29 Dose: 40 mg Heparin Sodium (Porcine) (Heparin -) 5,000 unit SQ BID [facility] Last Admin: 09/04/18 21:14 Dose: 5,000 unit Vancomycin HCl 1,250 mg/ (Dextrose) 250 mls @ 166.667 mls/hr IVPB Q24H [facility]; Protocol Last Admin: 09/04/18 14:10 Dose: 166.667 mls/hr Insulin Aspart (Novolog Vial Sliding Scale -) 1 vial SQ ACHS [facility]; Protocol Last Admin: 09/05/18 06:27 Dose: 6 units Insulin Aspart (Novolog Mix 70/30 Vial) 30 units SQ BIDAC [facility] Last Admin: 09/05/18 06:27 Dose: 30 units Insulin Detemir (Levemir Vial) 8 units SQ HS [facility] Last Admin: 09/04/18 23:18 Dose: 8 units Metoprolol Succinate (Toprol Xl -) 50 mg PO DAILY [facility] Last Admin: 09/04/18 10:29 Dose: 50 mg - Objective Vital Signs: Vital Signs Temperature 98.4 F 09/05/18 05:18 Pulse Rate 74 09/05/18 05:18 Respiratory Rate 20 09/05/18 05:18 Blood Pressure 106/46 L 09/05/18 05:18 O2 Sat by Pulse Oximetry (%) 96 09/04/18 21:00 Constitutional: Yes: No Distress, Calm Cardiovascular: Yes: Regular Rate and Rhythm Respiratory: Yes: Regular, CTA Bilaterally Gastrointestinal: Yes: Normal Bowel Sounds, Soft Musculoskeletal: Yes: WNL Extremities: Yes: Other Neurological: Yes: Alert, Oriented Psychiatric: Yes: Alert, Oriented Labs: CBC, BMP 09/05/18 06:00 09/05/18 06:00 Assessment/Plan Problem List - Problems (1) Cellulitis and abscess of right lower extremity Code(s): L03.115 - CELLULITIS OF RIGHT LOWER LIMB; L02.415 - CUTANEOUS ABSCESS OF RIGHT LOWER LIMB (2) HLD (hyperlipidemia) Code(s): E78.5 - HYPERLIPIDEMIA, UNSPECIFIED (3) Osteomyelitis Code(s): M86.9 - OSTEOMYELITIS, UNSPECIFIED (4) HTN (hypertension) Code(s): I10 - ESSENTIAL (PRIMARY) HYPERTENSION Qualifiers: Hypertension type: essential hypertension Qualified Code(s): I10 - Essential (primary) hypertension (5) Insulin dependent diabetes mellitus Code(s): E11.9 - TYPE 2 DIABETES MELLITUS WITHOUT COMPLICATIONS; 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
[2018-09-05] MEDS: HEPARIN NA (PORCINE) 5,000 UNITS/ML 1ML VIAL SQ SCH ×2 (10:43→21:28)
[2018-09-05] MEDS: ENALAPRIL MALEATE 5 MG TABLET (FP) PO SCH (10:44)
[2018-09-05] MEDS: FUROSEMIDE 40 MG TABLET (FP) PO SCH (10:44)
[2018-09-05] MEDS ORDERED: INSULIN (NOVOLOG) ASPART 100 UNITS/ML 10ML VIAL ONE ×3 (11:35→21:21)
--- NOTE | 2018-09-05 13:44 | PN ---
Progress Note (short form) - Note Progress Note: has pain in right leg -- decreased Sono negative for DVT completed PO antibiotics-=- as outpt for osteomyelitis no drainage from 2nd toe wound Vital Signs - 24 hr 09/04/18 09/04/18 09/04/18 13:58 18:00 21:00 Temperature 97.8 F 98.6 F Pulse Rate 71 77 Respiratory 20 20 20 Rate Blood Pressure 143/55 L 150/77 O2 Sat by Pulse 96 Oximetry (%) 09/05/18 09/05/18 05:18 08:30 Temperature 98.4 F 98.7 F Pulse Rate 74 79 Respiratory 20 18 Rate Blood Pressure 106/46 L 150/72 O2 Sat by Pulse Oximetry (%) Current Medications Generic Name Dose Route Start Last Admin Trade Name Freq PRN Reason Stop Dose Admin Atorvastatin Calcium 10 mg 09/03/18 23:30 09/04/18 21:14 Lipitor - PO 10 mg HS [facility]ELA Administration Enalapril Maleate 5 mg 09/04/18 10:00 09/05/18 10:44 Vasotec - PO 5 mg DAILY [facility]UELA Administration Furosemide 40 mg 09/04/18 10:00 09/05/18 10:44 Lasix - PO 40 mg DAILY [facility]ELA Administration Heparin Sodium (Porcine) 5,000 unit 09/03/18 22:00 09/05/18 10:43 Heparin - SQ 5,000 unit BID [facility]A Administration Vancomycin HCl 1,250 mg/ 250 mls @ 166.667 mls/hr 09/04/18 13:30 09/04/18 14: 10 Dextrose IVPB 166.667 mls/hr Q24H [facility]UELA Administration Protocol Insulin Aspart 1 vial 09/04/18 12:45 09/05/18 11:43 Novolog Vial Sliding Scale - SQ 2 units ACHS MANUELA Administration Protocol Insulin Aspart 30 units 09/05/18 07:00 09/05/18 06:27 Novolog Mix 70/30 Vial SQ 30 units BIDAC [facility]UELA Administration Insulin Detemir 8 units 09/04/18 23:00 09/04/18 23:18 Levemir Vial SQ 8 units HS [facility]A Administration Metoprolol Succinate 50 mg 09/04/18 10:00 09/05/18 10:44 Toprol Xl - PO 50 mg DAILY [facility]A Administration Laboratory Results - last 24 hr 09/04/18 09/04/18 09/04/18 12:50 16:22 20:56 WBC RBC Hgb Hct MCV MCH MCHC RDW Plt Count MPV Absolute Neuts (auto) Neutrophils % Lymphocytes % Monocytes % Eosinophils % Basophils % Nucleated RBC % Sodium Potassium Chloride Carbon Dioxide Anion Gap BUN Creatinine Creat Clearance w eGFR POC Glucometer 342 420 Random Glucose Hemoglobin A1c % Calcium Total Bilirubin AST ALT Alkaline Phosphatase Total Protein Albumin Random Vancomycin 4.5 L 09/05/18 09/05/18 09/05/18 05:49 06:00 06:00 WBC 6.6 RBC 3.96 Hgb 11.7 Hct 34.4 MCV 86.7 MCH 29.6 MCHC 34.1 RDW 13.5 Plt Count 228 MPV 8.8 Absolute Neuts (auto) 3.7 Neutrophils % 56.3 Lymphocytes % 22.7 D Monocytes % 12.6 H Eosinophils % 7.7 H Basophils % 0.7 Nucleated RBC % 0 Sodium 137 Potassium 3.7 Chloride 101 Carbon Dioxide 29 Anion Gap 7 L BUN 17 Creatinine 0.8 Creat Clearance w eGFR 69.19 POC Glucometer 257 Random Glucose 250 H Hemoglobin A1c % Calcium 8.5 Total Bilirubin 0.9 AST 19 ALT 19 Alkaline Phosphatase 90 Total Protein 6.8 Albumin 2.8 L Random Vancomycin 09/05/18 09/05/18 06:00 11:14 WBC RBC Hgb Hct MCV MCH MCHC RDW Plt Count MPV Absolute Neuts (auto) Neutrophils % Lymphocytes % Monocytes % Eosinophils % Basophils % Nucleated RBC % Sodium Potassium Chloride Carbon Dioxide Anion Gap BUN Creatinine Creat Clearance w eGFR POC Glucometer 153 Random Glucose Hemoglobin A1c % 8.5 H Calcium Total Bilirubin AST ALT Alkaline Phosphatase Total Protein Albumin Random Vancomycin no pallor S1 S2 RRR Lungs clear Abd- soft, NT edema right leg, erythema +warm and tender+-- decreased Rt foot examined-- 2nd toe-- swollen and tender , open wound seen, no drainage PLAN Cellulitis Osteomyelitis--persistent DM HTN -- meds reviewed -- iv antibiotics for 6 weeks per ID -- contact isolation for MRSA wound -- will need iv antibiotics , picc line on discharge -- podiatry eval-- ?biopsy --- vascular eval appreciated -- A1C noted Problem List - Problems (1) Cellulitis and abscess of right lower extremity Code(s): L03.115 - CELLULITIS OF RIGHT LOWER LIMB; L02.415 - CUTANEOUS ABSCESS OF RIGHT LOWER LIMB (2) HLD (hyperlipidemia) Code(s): E78.5 - HYPERLIPIDEMIA, UNSPECIFIED (3) Osteomyelitis Code(s): M86.9 - OSTEOMYELITIS, UNSPECIFIED (4) HTN (hypertension) Code(s): I10 - ESSENTIAL (PRIMARY) HYPERTENSION Qualifiers: Hypertension type: essential hypertension Qualified Code(s): I10 - Essential (primary) hypertension (5) Insulin dependent diabetes mellitus Code(s): E11.9 - TYPE 2 DIABETES MELLITUS WITHOUT COMPLICATIONS; Z79.4 - [facility] (CURRENT) USE OF INSULIN
[2018-09-05] MEDS: VANCOMYCIN HCL 1,250 MG in DEXTROSE 5%-WATER - 250 ML IVPB SCH (17:19)
[2018-09-05] MEDS ORDERED: INSULIN (NOVOLOG MIX 70/30) 100 UNITS/ML MDV SQ ONE (17:36)
[2018-09-05] MEDS: INSULIN (LEVEMIR) 100 UNITS/ML UNITS SQ SCH (21:27)
[2018-09-05] MEDS: ATORVASTATIN CA 10 MG TABLET (FP) PO SCH (21:28)
[2018-09-06] MEDS: INSULIN SLIDING SCALE (NOVOLOG) 1 VIAL SQ SCH ×4 (06:11→22:19)
[2018-09-06] MEDS: INSULIN (NOVOLOG MIX 70/30) 100 UNITS/ML MDV SQ SCH ×2 (06:45→16:29)
[2018-09-06] MEDS ORDERED: INSULIN (NOVOLOG MIX 70/30) 100 UNITS/ML MDV SQ ONE (06:54)
[2018-09-06] MEDS ORDERED: INSULIN (LEVEMIR) 100 UNITS/ML UNITS SQ ONE ×2 (06:55→23:11)
[2018-09-06] MEDS: HEPARIN NA (PORCINE) 5,000 UNITS/ML 1ML VIAL SQ SCH ×2 (09:35→21:59)
[2018-09-06] MEDS: ENALAPRIL MALEATE 5 MG TABLET (FP) PO SCH (09:35)
[2018-09-06] MEDS: FUROSEMIDE 40 MG TABLET (FP) PO SCH (09:35)
--- NOTE | 2018-09-06 10:48 | PN ---
Progress Note, Physician History of Present Illness: stable leg more swollen today tenderness has increased - Current Medication List Current Medications: Active Medications Atorvastatin Calcium (Lipitor -) 10 mg PO HS [facility] Last Admin: 09/05/18 21:28 Dose: 10 mg Enalapril Maleate (Vasotec -) 5 mg PO DAILY [facility] Last Admin: 09/06/18 09:35 Dose: 5 mg Furosemide (Lasix -) 40 mg PO DAILY [facility] Last Admin: 09/06/18 09:35 Dose: 40 mg Heparin Sodium (Porcine) (Heparin -) 5,000 unit SQ BID [facility] Last Admin: 09/06/18 09:35 Dose: 5,000 unit Vancomycin HCl 1,250 mg/ (Dextrose) 250 mls @ 166.667 mls/hr IVPB Q24H [facility]; Protocol Last Admin: 09/05/18 17:19 Dose: 166.667 mls/hr Insulin Aspart (Novolog Vial Sliding Scale -) 1 vial SQ [facility]; Protocol Last Admin: 09/06/18 06:11 Dose: Not Given Insulin Aspart (Novolog Mix 70/30 Vial) 30 units SQ BIDAC [facility] Last Admin: 09/06/18 06:45 Dose: 30 units Insulin Detemir (Levemir Vial) 8 units SQ HS [facility] Last Admin: 09/05/18 21:27 Dose: 8 units Metoprolol Succinate (Toprol Xl -) 50 mg PO DAILY [facility] Last Admin: 09/06/18 09:35 Dose: 50 mg - Objective Vital Signs: Vital Signs Temperature 98.4 F 09/06/18 09:17 Pulse Rate 74 09/06/18 09:17 Respiratory Rate 18 09/06/18 09:17 Blood Pressure 121/70 09/06/18 09:17 O2 Sat by Pulse Oximetry (%) 97 09/06/18 09:00 Constitutional: Yes: Calm, Mild Distress Cardiovascular: Yes: S1, S2 Respiratory: Yes: Regular, CTA Bilaterally Gastrointestinal: Yes: Normal Bowel Sounds, Soft Musculoskeletal: Yes: Other (increased swelling of the leg with tenderness and pain) Extremities: Yes: Erythema (of the rt lower ext) Neurological: Yes: Alert, Oriented Psychiatric: Yes: Alert, Oriented Labs: CBC, BMP 09/05/18 06:00 09/05/18 06:00 Assessment/Plan Problem List - Problems (1) Cellulitis and abscess of right lower extremity Code(s): L03.115 - CELLULITIS OF RIGHT LOWER LIMB; L02.415 - CUTANEOUS ABSCESS OF RIGHT LOWER LIMB (2) HLD (hyperlipidemia) Code(s): E78.5 - HYPERLIPIDEMIA, UNSPECIFIED (3) Osteomyelitis Code(s): M86.9 - OSTEOMYELITIS, UNSPECIFIED (4) HTN (hypertension) Code(s): I10 - ESSENTIAL (PRIMARY) HYPERTENSION Qualifiers: Hypertension type: essential hypertension Qualified Code(s): I10 - Essential (primary) hypertension (5) Insulin dependent diabetes mellitus Code(s): E11.9 - TYPE 2 DIABETES MELLITUS WITHOUT COMPLICATIONS; Z79.4 - NURSING HOME (CURRENT) USE OF INSULIN plan abx for 6 weeks keep the leg elevated abx dose will need to be adjusted after the trough level rest as per the team
--- NOTE | 2018-09-06 11:48 | PN ---
Progress Note (short form) - Note Progress Note: has pain in right leg --increased today Sono negative for DVT pain is worse today Vital Signs - 24 hr 09/05/18 09/05/18 09/05/18 14:00 18:00 21:00 Temperature 97.7 F 97.7 F Pulse Rate 68 68 Respiratory 18 18 Rate Blood Pressure 121/55 L 127/57 L O2 Sat by Pulse 96 Oximetry (%) 09/06/18 09/06/18 09/06/18 06:00 09:00 09:17 Temperature 98.9 F 98.4 F Pulse Rate 70 74 Respiratory 16 18 Rate Blood Pressure 127/57 L 121/70 O2 Sat by Pulse 97 Oximetry (%) Current Medications Generic Name Dose Route Start Last Admin Trade Name Freq PRN Reason Stop Dose Admin Atorvastatin Calcium 10 mg 09/03/18 23:30 09/05/18 21:28 Lipitor - PO 10 mg HS MANUELA Administration Enalapril Maleate 5 mg 09/04/18 10:00 09/06/18 09:35 Vasotec - PO 5 mg DAILY MANUELA Administration Furosemide 40 mg 09/04/18 10:00 09/06/18 09:35 Lasix - PO 40 mg DAILY MANUELA Administration Heparin Sodium (Porcine) 5,000 unit 09/03/18 22:00 09/06/18 09:35 Heparin - SQ 5,000 unit BID MANUELA Administration Vancomycin HCl 1,500 mg in 500 mls @ 166.667 mls/hr 09/06/18 11:15 Vancomycin (Pre-Docked) IVPB Q24H [facility] Protocol Insulin Aspart 1 vial 09/04/18 12:45 09/06/18 06:11 Novolog Vial Sliding Scale - SQ Not Given ACHS [facility] Protocol Insulin Aspart 30 units 09/05/18 07:00 09/06/18 06:45 Novolog Mix 70/30 Vial SQ 30 units BIDAC MANUELA Administration Insulin Detemir 8 units 09/04/18 23:00 09/05/18 21:27 Levemir Vial SQ 8 units HS MANUELA Administration Metoprolol Succinate 50 mg 09/04/18 10:00 09/06/18 09:35 Toprol Xl - PO 50 mg DAILY MANUELA Administration Laboratory Results - last 24 hr 09/05/18 09/05/18 09/06/18 16:55 21:19 05:54 POC Glucometer 215 189 131 no pallor S1 S2 RRR Lungs clear Abd- soft, NT edema right leg, erythema +warm and tender+-- worse today Rt foot examined-- 2nd toe-- swollen and tender , open wound seen, no drainage PLAN Cellulitis Osteomyelitis--persistent DM HTN -- meds reviewed -- iv antibiotics for 6 weeks per ID -- Vancomycin increased -- check Vanco trough today -- contact isolation for MRSA wound -- will need iv antibiotics , picc line on discharge -- podiatry eval-- no surgeries planned --- vascular eval appreciated -- A1C noted Problem List - Problems (1) Cellulitis and abscess of right lower extremity Code(s): L03.115 - CELLULITIS OF RIGHT LOWER LIMB; L02.415 - CUTANEOUS ABSCESS OF RIGHT LOWER LIMB (2) HLD (hyperlipidemia) Code(s): E78.5 - HYPERLIPIDEMIA, UNSPECIFIED (3) Osteomyelitis Code(s): M86.9 - OSTEOMYELITIS, UNSPECIFIED (4) HTN (hypertension) Code(s): I10 - ESSENTIAL (PRIMARY) HYPERTENSION Qualifiers: Hypertension type: essential hypertension Qualified Code(s): I10 - Essential (primary) hypertension (5) Insulin dependent diabetes mellitus Code(s): E11.9 - TYPE 2 DIABETES MELLITUS WITHOUT COMPLICATIONS; Z79.4 - 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
--- NOTE | 2018-09-06 12:15 | PN ---
Progress Note (short form) - Note Progress Note: fuv right 2nd toe +wound closed, edema right leg, +erythema right leg om vasculitis? Discussed with vascular and id. ivabx. no intervention currently.
[2018-09-06] MEDS ORDERED: PT OWN MED DRAWER 7, Y5N ONE (13:15)
[2018-09-06] MEDS: VANCOMYCIN HCL 1,500 MG/500 ML BAG IVPB SCH (13:34)
[2018-09-06] MEDS ORDERED: INSULIN (NOVOLOG) ASPART 100 UNITS/ML 10ML VIAL ONE (16:26)
--- NOTE | 2018-09-06 17:01 | PN ---
Progress Note (short form) - Note Progress Note: Vascular Surgery Pt seen and examined. Persistent Right second toe osteo. Pt is a diabetic. Pt no PT pulse. Pt has weak DP pulse in right foot. Right second toe with open ulcer. Will order CTA to check runoff into foot. Salvador Clement DO
[2018-09-06] MEDS ORDERED: predniSONE 20 MG TABLET (UD) PO ONE (21:15)
[2018-09-06] MEDS: ATORVASTATIN CA 10 MG TABLET (FP) PO SCH (22:00)
[2018-09-06] MEDS: INSULIN (LEVEMIR) 100 UNITS/ML UNITS SQ SCH (22:20)
[2018-09-06] MEDS: MICONAZOLE NITRATE 100 MG SUPP SUPP.VAG PV SCH (22:22)
[2018-09-07] MEDS ORDERED: INSULIN (NOVOLOG) ASPART 100 UNITS/ML 10ML VIAL ONE ×2 (06:24→21:42)
[2018-09-07] MEDS: INSULIN (NOVOLOG MIX 70/30) 100 UNITS/ML MDV SQ SCH ×2 (06:30→16:22)
[2018-09-07] MEDS: INSULIN SLIDING SCALE (NOVOLOG) 1 VIAL SQ SCH ×4 (06:30→21:45)
[2018-09-07] MEDS ORDERED: INSULIN (NOVOLOG MIX 70/30) 100 UNITS/ML MDV SQ ONE (06:56)
[2018-09-07] MEDS: HEPARIN NA (PORCINE) 5,000 UNITS/ML 1ML VIAL SQ SCH ×2 (09:19→21:34)
[2018-09-07] MEDS: ENALAPRIL MALEATE 5 MG TABLET (FP) PO SCH (09:19)
[2018-09-07] MEDS: FUROSEMIDE 40 MG TABLET (FP) PO SCH (09:19)
--- NOTE | 2018-09-07 09:59 | PN ---
Progress Note (short form) - Note Progress Note: pt seen/ examined chart reviewed feels better decreased pain discussed with Dr. Clement and Dr. Corea today got prednisone but no contrast -- will cancel cta -- Discussed. Pt reports allergic to contrast afebrile Vital Signs Temp 98.2 F 09/07/18 07:46 Pulse 72 09/07/18 07:46 Resp 15 09/07/18 07:46 BP 137/70 09/07/18 07:46 Pulse Ox 97 09/06/18 21:00 Intake & Output 09/06/18 09/06/18 09/07/18 11:59 23:59 11:59 Intake Total 200 1100 240 Balance 200 1100 240 Weight 173 lb 6 oz 171 lb 1.6 oz Intake: IVPB 500 Oral 200 600 240 Other: Voiding Method Toilet Toilet # Unmeasured Voids Void 2 2 3 Bowel Movement No: Sunday 09/03 No # Bowel Movements 0 Weight Measurement Method Built in Bedscale Built in Bedscale Active Medications Atorvastatin Calcium (Lipitor -) 10 mg PO HS [facility] Last Admin: 09/06/18 22:00 Dose: 10 mg Diphenhydramine HCl (Benadryl Injection -) 50 mg IVPUSH ONCE ONE Stop: 09/07/18 11:01 Enalapril Maleate (Vasotec -) 5 mg PO DAILY [facility] Last Admin: 09/07/18 09:19 Dose: 5 mg Furosemide (Lasix -) 40 mg PO DAILY [facility] Last Admin: 09/07/18 09:19 Dose: 40 mg Heparin Sodium (Porcine) (Heparin -) 5,000 unit SQ BID [facility] Last Admin: 09/07/18 09:19 Dose: 5,000 unit Vancomycin HCl (Vancomycin (Pre-Docked)) 1,500 mg in 500 mls @ 166.667 mls/hr IVPB Q24H [facility]; Protocol Last Admin: 09/06/18 13:34 Dose: 166.667 mls/hr Insulin Aspart (Novolog Vial Sliding Scale -) 1 vial SQ ACHS [facility]; Protocol Last Admin: 09/07/18 06:30 Dose: 8 units Insulin Aspart (Novolog Mix 70/30 Vial) 30 units SQ BIDAC [facility] Last Admin: 09/07/18 06:30 Dose: 30 units Insulin Detemir (Levemir Vial) 8 units SQ HS [facility] Last Admin: 09/06/18 22:20 Dose: 8 units Metoprolol Succinate (Toprol Xl -) 50 mg PO DAILY [facility] Last Admin: 09/07/18 09:19 Dose: 50 mg Miconazole Nitrate (Monistat-7 Vaginal Suppository -) 100 mg PV HS [facility] Last Admin: 09/06/18 22:22 Dose: Not Given Prednisone (Deltasone -) 50 mg PO ONCE ONE Stop: 09/07/18 11:01 CBC, BMP 09/05/18 06:00 09/05/18 06:00 Microbiology 09/03/18 17:04 Blood Culture - Preliminary Blood - Peripheral Venous NO GROWTH OBTAINED AFTER 72 HOURS, INCUBATION TO CONTINUE FOR 2 DAYS. 09/03/18 17:00 Blood Culture - Preliminary Blood - Peripheral Venous NO GROWTH OBTAINED AFTER 72 HOURS, INCUBATION TO CONTINUE FOR 2 DAYS. 09/03/18 21:10 Urine Culture - Preliminary Urine - Urine Clean Catch Enterococcus Faecalis Staphylococcus Species Physical Exam Awake Comfortable S1 S2 RRR Lungs clear Abd- soft, NT edema right leg, erythema +warm and tender+-- better Rt foot examined-- 2nd toe-- swollen and tender , open wound seen, no drainage PLAN Cellulitis Osteomyelitis--persistent DM HTN -- meds reviewed -- iv antibiotics for 6 weeks per ID -- Vancomycin increased -- check Vanco trough -- contact isolation for MRSA wound -- will need iv antibiotics , picc line on discharge -- podiatry eval-- no surgeries planned --- vascular eval appreciated -- d/c planning -- Problem List - Problems (1) Cellulitis and abscess of right lower extremity Code(s): L03.115 - CELLULITIS OF RIGHT LOWER LIMB; L02.415 - CUTANEOUS ABSCESS OF RIGHT LOWER LIMB (2) HLD (hyperlipidemia) Code(s): E78.5 - HYPERLIPIDEMIA, UNSPECIFIED (3) Osteomyelitis Code(s): M86.9 - OSTEOMYELITIS, UNSPECIFIED (4) HTN (hypertension) Code(s): I10 - ESSENTIAL (PRIMARY) HYPERTENSION Qualifiers: Hypertension type: essential hypertension Qualified Code(s): I10 - Essential (primary) hypertension (5) Insulin dependent diabetes mellitus Code(s): E11.9 - TYPE 2 DIABETES MELLITUS WITHOUT COMPLICATIONS; 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
--- NOTE | 2018-09-07 10:16 | PN ---
Progress Note (short form) - Note Progress Note: Pt states that her foot pain and swelling have improved. Vital Signs Period Temp Pulse Resp BP Sys/Patel Pulse Ox Last 24 Hr 97.8 F-98.2 F 68-72 15-19 126-137/50-70 97 GEN: A&0x3, OOB to chair Right foot: palpable DP pulse. Less edema and erythema to the foot. 2nd toe with distal dry ulcer. CBC, BMP 09/05/18 06:00 09/05/18 06:00 A/p: 77 yo female with Right 2nd distal toe ulcer, MRSA to wound D/w Dr. Clement, CTA cancelled. May obtain baseline studies with PVRs in the office. She is scheduled for PICC line insertion and 6 weeks IV abx treatment for her osteomyelitis. Plan is for dishcarge after PICC line insertion. Follow up with Dr. Clement in the office in 1 to 2 week after discharge from hospital.
[2018-09-07] MEDS ORDERED: predniSONE 20 MG TABLET (UD) PO ONE (11:00)
--- NOTE | 2018-09-07 11:28 | PN ---
Progress Note, Physician History of Present Illness: swelling of the rt foot better erythema less tenderness still present - Current Medication List Current Medications: Active Medications Atorvastatin Calcium (Lipitor -) 10 mg PO HS [facility] Last Admin: 09/06/18 22:00 Dose: 10 mg Diphenhydramine HCl (Benadryl Injection -) 50 mg IVPUSH ONCE ONE Stop: 09/07/18 11:01 Enalapril Maleate (Vasotec -) 5 mg PO DAILY [facility] Last Admin: 09/07/18 09:19 Dose: 5 mg Furosemide (Lasix -) 40 mg PO DAILY [facility] Last Admin: 09/07/18 09:19 Dose: 40 mg Heparin Sodium (Porcine) (Heparin -) 5,000 unit SQ BID [facility] Last Admin: 09/07/18 09:19 Dose: 5,000 unit Vancomycin HCl (Vancomycin (Pre-Docked)) 1,500 mg in 500 mls @ 166.667 mls/hr IVPB Q24H [facility]; Protocol Last Admin: 09/06/18 13:34 Dose: 166.667 mls/hr Insulin Aspart (Novolog Vial Sliding Scale -) 1 vial SQ ACHS [facility]; Protocol Last Admin: 09/07/18 06:30 Dose: 8 units Insulin Aspart (Novolog Mix 70/30 Vial) 30 units SQ BIDAC [facility] Last Admin: 09/07/18 06:30 Dose: 30 units Insulin Detemir (Levemir Vial) 8 units SQ HS [facility] Last Admin: 09/06/18 22:20 Dose: 8 units Metoprolol Succinate (Toprol Xl -) 50 mg PO DAILY [facility] Last Admin: 09/07/18 09:19 Dose: 50 mg Miconazole Nitrate (Monistat-7 Vaginal Suppository -) 100 mg PV HS [facility] Last Admin: 09/06/18 22:22 Dose: Not Given Prednisone (Deltasone -) 50 mg PO ONCE ONE Stop: 09/07/18 11:01 - Objective Vital Signs: Vital Signs Temperature 98.2 F 09/07/18 07:46 Pulse Rate 72 09/07/18 07:46 Respiratory Rate 15 09/07/18 07:46 Blood Pressure 137/70 09/07/18 07:46 O2 Sat by Pulse Oximetry (%) 97 09/07/18 09:00 Constitutional: Yes: Calm, Mild Distress Cardiovascular: Yes: Regular Rate and Rhythm Respiratory: Yes: Regular, CTA Bilaterally Gastrointestinal: Yes: Normal Bowel Sounds, Soft Musculoskeletal: Yes: WNL Extremities: Yes: Other Neurological: Yes: Alert, Oriented Psychiatric: Yes: Alert, Oriented Labs: CBC, BMP 09/05/18 06:00 09/05/18 06:00 Assessment/Plan Problem List - Problems (1) Cellulitis and abscess of right lower extremity Code(s): L03.115 - CELLULITIS OF RIGHT LOWER LIMB; L02.415 - CUTANEOUS ABSCESS OF RIGHT LOWER LIMB (2) HLD (hyperlipidemia) Code(s): E78.5 - HYPERLIPIDEMIA, UNSPECIFIED (3) Osteomyelitis Code(s): M86.9 - OSTEOMYELITIS, UNSPECIFIED (4) HTN (hypertension) Code(s): I10 - ESSENTIAL (PRIMARY) HYPERTENSION Qualifiers: Hypertension type: essential hypertension Qualified Code(s): I10 - Essential (primary) hypertension (5) Insulin dependent diabetes mellitus Code(s): E11.9 - TYPE 2 DIABETES MELLITUS WITHOUT COMPLICATIONS; Z79.4 - LONGTERM (CURRENT) USE OF INSULIN plan abx for 6 weeks keep the leg elevated abx dose will need to be adjusted after the trough level rest as per the team will check trough tomorrow
[2018-09-07] MEDS ORDERED: PT OWN MED DRAWER 7, Y5N ONE (12:03)
--- NOTE | 2018-09-07 12:23 | PN ---
Progress Note (short form) - Note Progress Note: fuv right 2nd toe and cellulitis right leg +wound closed, edema right leg, +erythema right leg, +tenderness om vasculitis? Discussed with id feels it is improving. ivabx. no intervention currently. anticipate dc with picc line and follow up in wound care.
[2018-09-07] MEDS: VANCOMYCIN HCL 1,500 MG/500 ML BAG IVPB SCH (13:27)
[2018-09-07] MEDS: ATORVASTATIN CA 10 MG TABLET (FP) PO SCH (21:34)
[2018-09-07] MEDS: INSULIN (LEVEMIR) 100 UNITS/ML UNITS SQ SCH (21:34)
[2018-09-07] MEDS: MICONAZOLE NITRATE 100 MG SUPP SUPP.VAG PV SCH (21:47)
[2018-09-07] MEDS ORDERED: INSULIN (LEVEMIR) 100 UNITS/ML UNITS SQ ONE (22:20)
[2018-09-08] MEDS: INSULIN (NOVOLOG MIX 70/30) 100 UNITS/ML MDV SQ SCH (06:04)
[2018-09-08] MEDS: INSULIN SLIDING SCALE (NOVOLOG) 1 VIAL SQ SCH ×2 (06:15→11:43)
[2018-09-08] MEDS ORDERED: INSULIN (NOVOLOG MIX 70/30) 100 UNITS/ML MDV SQ ONE (06:20)
[2018-09-08 07:53] LABS: INR 1.02 (0.83-1.09)
[2018-09-08 08:50] VITALS: BP 138/50; PULSE 75; TEMP 98.8
[2018-09-08] MEDS: FUROSEMIDE 40 MG TABLET (FP) PO SCH (09:56)
[2018-09-08] MEDS: ENALAPRIL MALEATE 5 MG TABLET (FP) PO SCH (09:56)
--- NOTE | 2018-09-08 10:57 | PN ---
Progress Note, Physician History of Present Illness: stable no new issues - Current Medication List Current Medications: Active Medications Atorvastatin Calcium (Lipitor -) 10 mg PO HS [facility] Last Admin: 09/07/18 21:34 Dose: 10 mg Diphenhydramine HCl (Benadryl Injection -) 50 mg IVPUSH ONCE ONE Stop: 09/07/18 11:01 Enalapril Maleate (Vasotec -) 5 mg PO DAILY [facility] Last Admin: 09/08/18 09:56 Dose: 5 mg Furosemide (Lasix -) 40 mg PO DAILY [facility] Last Admin: 09/08/18 09:56 Dose: 40 mg Heparin Sodium (Porcine) (Heparin -) 5,000 unit SQ BID [facility] Last Admin: 09/07/18 21:34 Dose: 5,000 unit Vancomycin HCl (Vancomycin (Pre-Docked)) 1,500 mg in 500 mls @ 166.667 mls/hr IVPB Q24H [facility]; Protocol Last Admin: 09/07/18 13:27 Dose: 166.667 mls/hr Insulin Aspart (Novolog Vial Sliding Scale -) 1 vial SQ ACHS [facility]; Protocol Last Admin: 09/08/18 06:15 Dose: Not Given Insulin Aspart (Novolog Mix 70/30 Vial) 30 units SQ BIDAC [facility] Last Admin: 09/08/18 06:04 Dose: 30 units Insulin Detemir (Levemir Vial) 8 units SQ HS [facility] Last Admin: 09/07/18 21:34 Dose: 8 units Metoprolol Succinate (Toprol Xl -) 50 mg PO DAILY [facility] Last Admin: 09/08/18 09:56 Dose: 50 mg Miconazole Nitrate (Monistat-7 Vaginal Suppository -) 100 mg PV HS [facility] Last Admin: 09/07/18 21:47 Dose: Not Given Prednisone (Deltasone -) 50 mg PO ONCE ONE Stop: 09/07/18 11:01 - Objective Vital Signs: Vital Signs Temperature 98.8 F 09/08/18 08:49 Pulse Rate 75 09/08/18 08:49 Respiratory Rate 18 09/08/18 08:49 Blood Pressure 138/50 L 09/08/18 08:49 O2 Sat by Pulse Oximetry (%) 97 09/07/18 21:00 Constitutional: Yes: No Distress, Calm Cardiovascular: Yes: S1, S2 Gastrointestinal: Yes: Normal Bowel Sounds, Soft Musculoskeletal: Yes: WNL Extremities: Yes: Other Integumentary: Yes: Other (swelling and erythema much better tenderness improving) Neurological: Yes: Alert, Oriented Psychiatric: Yes: Alert, Oriented Labs: CBC, BMP 09/05/18 06:00 09/05/18 06:00 INR, PTT INR 1.02 (0.83-1.09) 09/08/18 07:00 Assessment/Plan Problem List - Problems (1) Cellulitis and abscess of right lower extremity Code(s): L03.115 - CELLULITIS OF RIGHT LOWER LIMB; L02.415 - CUTANEOUS ABSCESS OF RIGHT LOWER LIMB (2) HLD (hyperlipidemia) Code(s): E78.5 - HYPERLIPIDEMIA, UNSPECIFIED (3) Osteomyelitis Code(s): M86.9 - OSTEOMYELITIS, UNSPECIFIED (4) HTN (hypertension) Code(s): I10 - ESSENTIAL (PRIMARY) HYPERTENSION Qualifiers: Hypertension type: essential hypertension Qualified Code(s): I10 - Essential (primary) hypertension (5) Insulin dependent diabetes mellitus Code(s): E11.9 - TYPE 2 DIABETES MELLITUS WITHOUT COMPLICATIONS; Z79.4 - HALF-WAY (CURRENT) USE OF INSULIN plan abx for 6 weeks keep the leg elevated abx dose will need to be adjusted after the trough level rest as per the team await for the trough level
[2018-09-08] MEDS ORDERED: INSULIN (NOVOLOG) ASPART 100 UNITS/ML 10ML VIAL ONE (11:41)
--- NOTE | 2018-09-08 11:41 | PN ---
Progress Note (short form) - Note Progress Note: fuv right 2nd toe and cellulitis right leg ++greatly improved right leg, +wound closed 2nd toe right om vasculitis? Ivabx. anticipate dc with picc line and follow up in wound care.
[2018-09-08] MEDS: HEPARIN NA (PORCINE) 5,000 UNITS/ML 1ML VIAL SQ SCH (11:50)
[2018-09-08] MEDS: VANCOMYCIN HCL 1,500 MG/500 ML BAG IVPB SCH (11:50)
--- NOTE | 2018-09-08 12:03 | DS ---
Physical Examination Vital Signs: Vital Signs Temperature 98.8 F 09/08/18 08:49 Pulse Rate 75 09/08/18 08:49 Respiratory Rate 18 09/08/18 08:49 Blood Pressure 138/50 L 09/08/18 08:49 O2 Sat by Pulse Oximetry (%) 97 09/07/18 21:00 Findings/Remarks: comfortable no issues denies pain Constitutional: Yes: No Distress, Calm Neck: Yes: Supple Cardiovascular: Yes: Regular Rate and Rhythm Respiratory: Yes: CTA Bilaterally Gastrointestinal: Yes: Soft Extremities: Yes: Erythema (improved) Labs: CBC, BMP 09/05/18 06:00 09/05/18 06:00 Discharge Summary Reason For Visit: OSTEOMYELITIS Current Active Problems Cellulitis and abscess of right lower extremity (Acute) HLD (hyperlipidemia) (Acute) Osteomyelitis (Acute) Hospital Course: osteo treated with abx picc line placed abx x 6 weeks discussed with also meds reconcilled f/u office next week Condition: Good - Instructions Diet, Activity, Other Instructions: Please follow up with the wound clinic on the 5th floor with Dr. Clement for further wound management. Referrals: Salvador Clement DO [Staff Physician] - Disposition: VNS/HOME HEALTH CARE - Home Medications Comprehensive Discharge Medication List: Ambulatory Orders Furosemide [Lasix] 20 mg PO DAILY 08/09/18 Atorvastatin Ca [Lipitor] 10 mg PO HS tablet 08/13/18 Enalapril Maleate [Vasotec -] 5 mg PO DAILY tablet 08/13/18 Insulin Sliding Scale [Novolog Vial Sliding Scale -] 1 vial SQ BID units Metoprolol Succinate [Toprol XL -] 50 mg PO DAILY tab.sr.24h 08/13/18 Insulin (Levemir) [Levemir Vial] 8 units SQ HS units 09/08/18 Insulin (Novolog 70/30) [Novolog Mix 70/30 Vial -] 30 units SQ BIDAC units Miconazole Nitrate [Monistat-7 Vaginal Suppository -] 100 mg PV HS supp.vag Vancomycin/0.9 % Sod Chloride [Vanco 1.5 gm/500 ml-0.9% NaCl] 1.5 gm IV DAILY 42 Days #42 plast..bag 09/08/18
== END 2018-09-08 17:43 | disposition home health service (06) | DRG 638 ==
LOC: JER 16:23 → JERBED 17:53 → J6S 09-04 01:59 → UNDODISIN 09-05 15:07
PROVIDERS: ATTEND Internal Medicine
PROC: 02HV33Z Insertion of Infusion Device into Superior Vena Cava, Percutaneous Approach (ICD-10-PCS; principal; 2018-09-07)
PROC: B518ZZA Fluoroscopy of Superior Vena Cava, Guidance (ICD-10-PCS; 2018-09-07)
DX: E11.69 Type 2 diabetes mellitus with other specified complication (principal); M86.9 Osteomyelitis, unspecified; L03.115 Cellulitis of right lower limb; E78.5 Hyperlipidemia, unspecified; I10 Essential (primary) hypertension
CPT/HCPCS: 36415; 36569; 71045-TC-FY; 80048; 80053; 81003; 82962; 83036; 85025; 85610; 85651; 86140; 87040; 87086; 87186; 93005; 93010; 93971-TC; 99284-25; G0480; J1644

== ENCOUNTER 2018-10-04 16:37 | Inpatient (IN) | payer OTHER ==
--- NOTE | 2018-10-04 16:57 | PDOC ---
Rapid Medical Evaluation Medical Evaluation: Allergies Allergy/AdvReac Type Severity Reaction Status Date / Time Penicillins Allergy Severe Hives Verified 09/03/18 16:31 aspirin AdvReac Intermediate Nausea,STOMACH Verified 09/03/18 16:31 PAIN I have performed a brief in-person evaluation of this patient. The patient presents with a chief complaint of: Hx HTN, DM; Patient sent from hyperbaric unit as having heartburn today; was seen 1 month ago for OM (has R PICC line and is getting antibiotics); patient states is no longer having heartburn; denies fever, sob Pertinent physical exam findings: In NAD I have ordered the following: Labs, EKG The patient will proceed to the ED for further evaluation. 10/04/18 16:52
[2018-10-04 16:58] VITALS: BMI 27.7
[2018-10-04] MEDS ORDERED: MAG HYDROX/AL HYDROX/SIMETH -MYLANTA- ORAL SUSPENSION PO ONE (17:47)
--- NOTE | 2018-10-04 17:47 | PDOC ---
History of Present Illness - General Chief Complaint: Chest Pain Stated Complaint: ABD PAIN Time Seen by Provider: 10/04/18 16:52 History Source: Patient Exam Limitations: No Limitations - History of Present Illness Initial Comments: 10/04/18 17:43 77 yo female pmh GERD, HTN, HLD, DM, OM of the toe (receiving IV Vanc and hyperbaric treatments) presents to the ED from hyperbarics after having burning in her chest. Pt states she asked staff for Tums which usually relieves the burning in her chest which is described as the same quality and intensity as todays episode, however, was told she needed to go to the ER. CP non exertional , non radiating, denies back pain, SOB, abdominal pain or other atypical s/s of CP. Past History - Past Medical History Allergies/Adverse Reactions: Allergies Allergy/AdvReac Type Severity Reaction Status Date / Time Penicillins Allergy Severe Hives Verified 09/03/18 16:31 aspirin AdvReac Intermediate Nausea,STOMACH Verified 09/03/18 16:31 PAIN Home Medications: Ambulatory Orders Furosemide [Lasix] 20 mg PO DAILY 08/09/18 Atorvastatin Ca [Lipitor] 10 mg PO HS tablet 08/13/18 Enalapril Maleate [Vasotec -] 5 mg PO DAILY tablet 08/13/18 Insulin Sliding Scale [Novolog Vial Sliding Scale -] 1 vial SQ BID units Metoprolol Succinate [Toprol XL -] 50 mg PO DAILY tab.sr.24h 08/13/18 Insulin (Levemir) [Levemir Vial] 8 units SQ HS units 09/08/18 Insulin (Novolog 70/30) [Novolog Mix 70/30 Vial -] 30 units SQ BIDAC units Miconazole Nitrate [Monistat-7 Vaginal Suppository -] 100 mg PV HS supp.vag Vancomycin/0.9 % Sod Chloride [Vanco 1.5 gm/500 ml-0.9% NaCl] 1.5 gm IV DAILY 42 Days #42 plast..bag 09/08/18 Anemia: No Asthma: No Cancer: No Cardiac Disorders: No CVA: No COPD: No CHF: No Dementia: No Diabetes: Yes (IDDM) GI Disorders: Yes (acid reflux) Disorders: No HTN: Yes Hypercholesterolemia: Yes Liver Disease: No Seizures: No Thyroid Disease: No - Surgical History Abdominal Surgery: No Appendectomy: No Cardiac Surgery: No Cholecystectomy: No Lung Surgery: No Neurologic Surgery: No Orthopedic Surgery: No - Immunization History Immunization Up to Date: Yes - Suicide/Smoking/Psychosocial Hx Smoking Status: No Smoking History: Former smoker Have you smoked in the past 12 months: No Number of Cigarettes Smoked Daily: 0 Information on smoking cessation initiated: No Hx Alcohol Use: No Drug/Substance Use Hx: No Substance Use Type: None Hx Substance Use Treatment: No Review of Systems - Review of Systems Constitutional: No: Chills, Fever HEENTM: No: Double Vision Respiratory: No: Shortness of Breath Cardiac (ROS): No: Chest Pain (resolved chest burning), Lightheadedness, Palpitations, Syncope ABD/GI: No: Constipated, Diarrhea, Nausea, Vomiting : No: Burning, Dysuria, Frequency, Flank Pain Neurological: No: Headache, Numbness, Tingling, Weakness *Physical Exam - Vital Signs Last Vital Signs Temp Pulse Resp BP Pulse Ox 97.7 F 64 16 116/65 97 10/04/18 16:55 10/04/18 16:55 10/04/18 16:55 10/04/18 16:55 10/04/18 16:55 - Physical Exam General Appearance: Yes: Nourished, Appropriately Dressed. No: Apparent Distress HEENT: positive: EOMI Neck: positive: Supple Respiratory/Chest: positive: Lungs Clear, Normal Breath Sounds. negative: Accessory Muscle Use, Rapid RR, Crackles, Rales, Rhonchi, Stridor, Wheezing Cardiovascular: positive: Regular Rhythm, Regular Rate, S1, S2. negative: Edema , JVD, Murmur Vascular Pulses: Dorsalis-Pedis (R): 4+, Doralis-Pedis (L): 4+ Gastrointestinal/Abdominal: positive: Flat, Soft. negative: Pulsatile Mass, Distended, Guarding, Rebound, Tenderness Musculoskeletal: negative: CVA Tenderness Extremity: positive: Normal Capillary Refill, Normal Inspection, Normal Range of Motion Integumentary: positive: Normal Color, Dry, Warm Neurologic: positive: Fully Oriented, Alert, Normal Mood/Affect, Normal Response ED Treatment Course - LABORATORY CBC & Chemistry Diagram: 10/04/18 17:30 10/04/18 17:30 Medical Decision Making - Medical Decision Making 10/04/18 20:01 77 yo female pmh GERD, HTN, HLD, DM, OM of the toe (receiving IV Vanc and hyperbaric treatments) presents to the ED from hyperbarics after having burning in her chest. Pt states she asked staff for Tums which usually relieves the burning in her chest which is described as the same quality and intensity as todays episode, however, was told she needed to go to the ER. CP non exertional , non radiating, denies back pain, SOB, abdominal pain or other atypical s/s of CP. Vitals WNL NAD, non toxic appearing DDX INLT: ACS, GERD 1st trop negative, labs wnl CXR no acute path EKG shows T wave inversions I and AVL that appear new when compared to EKG 1 month ago EKG sent to pts die cast operator pt will be placed on nuclear monitoring technician Case discussed with Dr. Ordoñez who states pt should be admitted due to ekg changes (T wave inversions) and given Lovenox and ASA (Pt allergic, will hold ASA) along with TSH and lipid profile Case presented to [facility] who agrees to admit pt to Tele unit for further care pt admitted *DC/Admit/Observation/Transfer Diagnosis at time of Disposition: Abnormal EKG - Discharge Dispostion Condition at time of disposition: Stable Decision to Admit order: Yes - Referrals - Patient Instructions - Post Discharge Activity
[2018-10-04 17:57] LABS: BASO % 0.9 % (0-2.0); EOS % 18.4 % (0-4.5); HEMOGLOBIN 10.6 GM/dL (10.7-15.3); MCH 28.9 pg (25.7-33.7); MCHC 33.1 g/dl (32.0-36.0); MEAN CELL VOLUME 87.3 fl (80-96); MONO % 11.6 % (3.8-10.2); NEUT % 48.1 % (42.8-82.8); PLATELET COUNT 242 K/MM3 (134-434); RBC 3.67 M/mm3 (3.60-5.2); RDW 14.1 % (11.6-15.6); WHITE BLOOD COUNT 7.5 K/mm3 (4.0-10.0)
[2018-10-04] MEDS ORDERED: MAG HYDROX/AL HYDROX/SIMETH 30 ML UNIT-DOSE CUP ONE (18:08)
[2018-10-04 18:20] LABS: ALK PHOS 101 U/L (45-117); ANION GAP 8 MMOL/L (8-16); BILIRUBIN,TOTAL 0.5 mg/dL (0.2-1); BLOOD UREA NITROGEN 24 mg/dL (7-18); CALCIUM 8.7 mg/dL (8.5-10.1); CHLORIDE 104 mmol/L (98-107); CO2 26 mmol/L (21-32); CREATININE 0.9 mg/dL (0.55-1.3); GLUCOSE,RANDOM 267 mg/dL (74-106); POTASSIUM 4.2 mmol/L (3.5-5.1); SGOT/AST 19 U/L (15-37); SGPT/ALT 21 U/L (13-61); SODIUM 138 mmol/L (136-145)
--- NOTE | 2018-10-04 19:01 | PDOC ---
Documentation entered by Chau Franco SCRIBE, acting as scribe for Erlinda Braden MD. Erlinda Braden MD: This documentation has been prepared by the beverly, Chau Franco SCRIBE, under my direction and personally reviewed by me in its entirety. I confirm that the documentation accurately reflects all work, treatment, procedures, and medical decision making performed by me. Attending Attestation - Resident Resident Name: Ramin Gallagher - ED Attending Attestation I have performed the following: I have examined & evaluated the patient, The case was reviewed & discussed with the resident, I agree w/resident's findings & plan, Exceptions are as noted - HPI HPI: 10/04/18 18:28 The patient is a 77 year old female with a significant past medical history of diabetes, hypertension, hyperlipidemia, MRSA, osteomyelitis, and GERD who presents to the emergency department with chest pain prior to arrival to the ED. the patient describes her chest pain as a burning sensation lasting for 10 minutes before she began her hyperbaric treatment. The patient state states that she usually has some chest burning sensation that she attributes to her GERD. She states that she usually takes mylanta or tums to relieve the feeling. The patient state sthat she asked to get tums but she was sent to the ED instead. The patient reports that since then her pain has resolved. She denies any other symptoms on exam. She denies any shortness of breath, palpitations, chills, nausea, vomiting, diarrhea. The patient denies any other complaints. - Physicial Exam PE: 10/04/18 17:54 GENERAL: The patient is in no acute distress. ENT: Ears normal, nares patent, oropharynx clear without exudates. Moist mucous membranes. No tonsillar enlargement, no exudates NECK: Normal range of motion, supple, no nuchal rigidity (+) LAD LUNGS: Breath sounds equal, clear to auscultation bilaterally. No wheezes, and no crackles. HEART:Regular rate and rhythm, normal S1 and S2 without murmur, rub or gallop. ABDOMEN: Soft, nontender, normoactive bowel sounds. EXTREMITIES: Normal range of motion, no edema. NEUROLOGICAL: Cranial nerves II through XII grossly intact. Normal speech. No focal neurological deficits. SKIN: Warm, Dry, normal turgor, no rashes or lesions noted. - Medical Decision Making 10/04/18 17:57 EKG : SR rate of 75 bpm, R axis deviation, T wave inversions I and aVL, (EKG has changed as compared to EKG from 09/03) 10/04/18 18:06 Ms Alford is a 77 y/o F h/o HTN, IDDM, peripheral neuropathy, recent dx of osteomyelitis of the right 2nd toe (treated with Vancomycin and HBO) who referred to the ER from HBO due to complaint of epigastric burning which resolved by the time she arrived in the ER Pt actually has no chest pain now She denies shortness of breath She denies palpitations EKG appears changed from prior Concerning for ACS also in the differential gastritis, dyspepsia Low threshold to CTA as pt has new right axis deviation (however, no tachycardia or hypoxia) 10/04/18 18:10 Laboratory Tests 09/05/18 10/04/18 06:00 17:30 WBC 6.6 7.5 Hgb 11.7 10.6 L Hct 34.4 32.0 L Plt Count 228 242 Laboratory Tests 10/04/18 17:30 Sodium 138 Potassium 4.2 Chloride 104 Carbon Dioxide 26 BUN 24 H Creatinine 0.9 Random Glucose 267 H Creatine Kinase 64 Troponin I < 0.02 EKG showed t wave inversion this was sent to Dr Ordoñez He recommends keeping pt for observation EKG repeated and t wave inversions have resolved (unclear if this is an issue of lead placement OR ischemic changes) 10/04/18 20:17 Pt is on Vancomycin 1750 mg Dose ordered for tonight 10/04/18 20:18 10/04/18 20:57 EXAM: RAD/CHEST PA LAT Impression: No acute cardiopulmonary disease is present. Reported By: Norbert Pavon MD
[2018-10-04] MEDS ORDERED: ENOXAPARIN NA (PORCINE) 80 MG/0.8 ML DISP.SYRIN SQ ONE ×2 (19:59→21:09)
--- NOTE | 2018-10-04 20:12 | HP ---
Admitting History and Physical - Primary Care Physician PCP: Chloé Garcia - Admission Chief Complaint: Chest Pain History of Present Illness: This is a 77 y/o woman with a PMHx of HTN, HLD, DM, Osteomyelitis (Hyperbaric Treatment). Who presents to the ED from the Hyperbaric Department with chest pain x today. Patient reports while receiving her Hyperbaric treatment she began having chest pain which she describes as a burning sensation non-radiating , lasting for 10 seconds. The patient states" I thought it was heartburn, and I asked for Tums, but the staff sent me to the ED to check my heart." The patient reports taking Tums in the past for similar episodes with relief. The patient denies dizziness, diaphoresis, SOB, palpitations. Patient denies fever, chills, cough, AP, N/V/D, constipation, dysuria. 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: Peripheral Neuropathy Cardiovascular: Yes: HTN, Hyperlipdemia Infectious Disease: Yes: MRSA Endocrine: Yes: Diabetes Mellitus - Smoking History Smoking history: Former smoker Have you smoked in the past 12 months: No Aproximately how many cigarettes per day: 0 - Alcohol/Substance Use Hx Alcohol Use: No History of Substance Use: reports: None - Social History Usual Living Arrangement: Yes: With Child ADL: Independent History of Recent Travel: No Home Medications - Allergies Allergies/Adverse Reactions: Allergies Allergy/AdvReac Type Severity Reaction Status Date / Time Penicillins Allergy Severe Hives Verified 09/03/18 16:31 aspirin AdvReac Intermediate Nausea,STOMACH Verified 09/03/18 16:31 PAIN - Home Medications Home Medications: Ambulatory Orders Furosemide [Lasix] 20 mg PO DAILY 08/09/18 Atorvastatin Ca [Lipitor] 10 mg PO HS tablet 08/13/18 Enalapril Maleate [Vasotec -] 5 mg PO DAILY tablet 08/13/18 Insulin Sliding Scale [Novolog Vial Sliding Scale -] 1 vial SQ BID units Metoprolol Succinate [Toprol XL -] 50 mg PO DAILY tab.sr.24h 08/13/18 Insulin (Levemir) [Levemir Vial] 8 units SQ HS units 09/08/18 Insulin (Novolog 70/30) [Novolog Mix 70/30 Vial -] 30 units SQ BIDAC units Miconazole Nitrate [Monistat-7 Vaginal Suppository -] 100 mg PV HS supp.vag Vancomycin/0.9 % Sod Chloride [Vanco 1.5 gm/500 ml-0.9% NaCl] 1.5 gm IV DAILY 42 Days #42 plast..bag 09/08/18 Family Disease History - Family Disease History Family History: Unable to Obtain Review of Systems - Review of Systems Constitutional: reports: No Symptoms Eyes: reports: No Symptoms HENT: reports: No Symptoms Neck: reports: No Symptoms Cardiovascular: reports: Chest Pain, Edema Respiratory: reports: No Symptoms Gastrointestinal: reports: No Symptoms Genitourinary: reports: No Symptoms Breasts: reports: No Symptoms Reported Musculoskeletal: reports: No Symptoms Integumentary: reports: Wound Neurological: reports: No Symptoms Endocrine: reports: No Symptoms Hematology/Lymphatic: reports: No Symptoms Psychiatric: reports: No Symptoms Pain Intensity: 0 Physical Examination Vital Signs: Vital Signs Temperature 97.7 F 10/04/18 16:55 Pulse Rate 64 10/04/18 16:55 Respiratory Rate 16 10/04/18 16:55 Blood Pressure 116/65 10/04/18 16:55 O2 Sat by Pulse Oximetry (%) 97 10/04/18 16:55 Constitutional: Yes: Well Nourished, No Distress, Calm Eyes: Yes: WNL, Conjunctiva Clear, EOM Intact, PERRL HENT: Yes: WNL, Atraumatic, Normocephalic Neck: Yes: WNL, Supple, Trachea Midline Cardiovascular: Yes: WNL, Regular Rate and Rhythm, S1, S2 Respiratory: Yes: WNL, Regular, CTA Bilaterally Gastrointestinal: Yes: WNL, Normal Bowel Sounds, Soft Renal/: Yes: WNL Breast(s): Yes: WNL Musculoskeletal: Yes: WNL Extremities: Yes: WNL Edema: Yes Edema: LLE: 1+, RLE: 1+ Peripheral Pulses WNL: Yes Wound/Incision: Yes: Other (right 2nd toe- distal dry ulcer gauze dressing and bandaid C/D/I) Neurological: Yes: WNL, Alert, Oriented, Cran Nerves II-XII Intact ...Motor Strength: WNL Psychiatric: Yes: WNL, Alert, Oriented Labs: CBC, BMP 10/04/18 17:30 10/04/18 17:30 Imaging - Results Chest X-ray: Report Reviewed, Image Reviewed EKG: Image Reviewed Problem List - Problems (1) Chest pain Assessment/Plan: r/o PR HEART Score 6 EKG- SR with TWI in I, II, AVL, V1 Serial Enzymes neg x1 will trend Appreciate Cardiology consult Given Lovenox in ED per Cardiology, will continue Echo in am Code(s): R07.9 - CHEST PAIN, UNSPECIFIED (2) Abnormal EKG Assessment/Plan: EKG SR with TWIs new compared to prior study Appreciate Cardiology consult Continue monitor worker Serial Enzymes TSH-pending Mg. Phos Serial EKGs Code(s): R94.31 - ABNORMAL ELECTROCARDIOGRAM [ECG] [EKG] (3) HLD (hyperlipidemia) Assessment/Plan: stable Continue home med Monitor LFTs Code(s): E78.5 - HYPERLIPIDEMIA, UNSPECIFIED (4) HTN (hypertension) Assessment/Plan: stable Monitor BP Continue home med Code(s): I10 - ESSENTIAL (PRIMARY) HYPERTENSION Qualifiers: (5) Insulin dependent diabetes mellitus Assessment/Plan: sub optimal BGMs ISS Last A1c (09/05/18)- 8.5 Patient would benefit with tighter glycemic control Code(s): E11.9 - TYPE 2 DIABETES MELLITUS WITHOUT COMPLICATIONS; Z79.4 - [facility] (CURRENT) USE OF INSULIN (6) Osteomyelitis Assessment/Plan: Continue Hyperbaric Therapy Appreciate Vascular consult Wound Care Code(s): M86.9 - OSTEOMYELITIS, UNSPECIFIED Assessment/Plan This is a 77 y/o woman with a PMHx of HTN, HLD, IDDM, Osteomyelitis. Admitted to Telemetry for Chest Pain r/o PR, Abnormal EKG for further evaluation of their emergent condition. Plan: See Problem List FEN PO fluids as tolerated Replete lytes prn Low Na Diet DVT ppx OOB SCD Continue Lovenox SQ Dispo: Requires Inpatient Care Visit type - Emergency Visit Emergency Visit: Yes ED Registration Date: 10/04/18 Care time: The patient presented to the Emergency Department on the above date and was hospitalized for further evaluation of their emergent condition. - New Patient This patient is new to me today: Yes Date on this admission: 10/04/18 - Critical Care Critical Care patient: No
[2018-10-04] MEDS ORDERED: VANCOMYCIN HCL 1,750 MG in DEXTROSE 5%-WATER - 500 ML IVPB ONE (20:13)
--- NOTE | 2018-10-04 22:11 | CON.CARD ---
Consult Consult Specialty:: cardiology Reason for Consultation:: chest pain; EKG abnormalities - History of Present Illness History of Present Illness: The patient is a 77 year old female with a significant past medical history of diabetes, hypertension, hyperlipidemia, MRSA, osteomyelitis, and GERD who presents to the emergency department with chest pain prior to arrival to the ED. the patient describes her chest pain as a burning sensation lasting for 10 minutes before she began her hyperbaric treatment. The patient state states that she usually has some chest burning sensation that she attributes to her GERD. She states that she usually takes mylanta or tums to relieve the feeling. The patient states that she asked to get Tums but she was sent to the ED instead. The patient reports that since then her pain has resolved. She denies any other symptoms on exam. She denies any shortness of breath, palpitations, chills, nausea, vomiting, diarrhea. The patient denies any other complaints. In the ER, pt's initial EKG was noted to have EKG changes compared to . - History Source History Provided By: Medical Record - Past Medical History PHARMACOGNOSIST: Yes: Peripheral Neuropathy Cardio/Vascular: Yes: HTN, Hyperlipdemia Reproductive: Yes: Postmenopausal ...: No Heme/Onc: Yes: Anemia Infectious Disease: Yes: MRSA Endocrine: Yes: Diabetes Mellitus - Alcohol/Substance Use Hx Alcohol Use: No History of Substance Use: reports: None - Smoking History Smoking history: Former smoker Have you smoked in the past 12 months: No Aproximately how many cigarettes per day: 0 - Social History ADL: Independent History of Recent Travel: No Home Medications - Allergies Allergies/Adverse Reactions: Allergies Allergy/AdvReac Type Severity Reaction Status Date / Time Penicillins Allergy Severe Hives Verified 09/03/18 16:31 aspirin AdvReac Intermediate Nausea,STOMACH Verified 09/03/18 16:31 PAIN - Home Medications Home Medications: Ambulatory Orders Furosemide [Lasix] 20 mg PO DAILY 08/09/18 Atorvastatin Ca [Lipitor] 10 mg PO HS tablet 08/13/18 Enalapril Maleate [Vasotec -] 5 mg PO DAILY tablet 08/13/18 Insulin Sliding Scale [Novolog Vial Sliding Scale -] 1 vial SQ BID units Metoprolol Succinate [Toprol XL -] 50 mg PO DAILY tab.sr.24h 08/13/18 Insulin (Levemir) [Levemir Vial] 8 units SQ HS units 09/08/18 Insulin (Novolog 70/30) [Novolog Mix 70/30 Vial -] 30 units SQ BIDAC units Miconazole Nitrate [Monistat-7 Vaginal Suppository -] 100 mg PV HS supp.vag Vancomycin/0.9 % Sod Chloride [Vanco 1.5 gm/500 ml-0.9% NaCl] 1.5 gm IV DAILY 42 Days #42 plast..bag 09/08/18 Family Disease History - Family Disease History Family History: Denies Review of Systems - Review of Systems Constitutional: reports: No Symptoms Eyes: reports: No Symptoms HENT: reports: No Symptoms Neck: reports: No Symptoms Cardiovascular: reports: Chest Pain Gastrointestinal: reports: Indigestion Genitourinary: reports: No Symptoms Breasts: reports: No Symptoms Reported Musculoskeletal: reports: Muscle Weakness Integumentary: reports: Other (right toe wound) Neurological: reports: Unsteady Gait Endocrine: reports: No Symptoms Hematology/Lymphatic: reports: No Symptoms Psychiatric: reports: No Symptoms - Risk Factors Known Risk Factors: Yes: Age, Gender, Hypercholesterolemia, Hypertension, Physical Inactivity Vital Signs: Vital Signs Temperature 97.7 F 10/04/18 16:55 Pulse Rate 64 10/04/18 16:55 Respiratory Rate 16 10/04/18 16:55 Blood Pressure 116/65 10/04/18 16:55 O2 Sat by Pulse Oximetry (%) 97 10/04/18 16:55 Constitutional: Yes: Calm Eyes: Yes: WNL HENT: Yes: WNL - Other Data Labs, Other Data: CBC, BMP 10/04/18 17:30 10/04/18 17:30 Troponin, BNP 10/04/18 17:30 Troponin I < 0.02 Troponin, BNP 10/04/18 17:30 Troponin I < 0.02 Imaging - Results Chest X-ray: Image Reviewed EKG: Image Reviewed Problem List - Problems (1) Abnormal EKG Assessment/Plan: T wave inversions are now present in I and aVL. TNI < 0.02. F/u EKG serially. Code(s): R94.31 - ABNORMAL ELECTROCARDIOGRAM [ECG] [EKG] (2) Chest pain Assessment/Plan: TNI < 0.02. EKG: NSR: new transient T wave inversions. Start IV heparin or Lovenox (pt reportedly is allergic to ASA). Serial TNI and EKG; continue telemetry. Plan for stress Lexsiscan test in am. Code(s): R07.9 - CHEST PAIN, UNSPECIFIED (3) Cellulitis and abscess of right lower extremity Assessment/Plan: On Vancomycin. F/u c/s. Code(s): L03.115 - CELLULITIS OF RIGHT LOWER LIMB; L02.415 - CUTANEOUS ABSCESS OF RIGHT LOWER LIMB (4) HTN (hypertension) Assessment/Plan: Pt has been on metoprolol ER and enalapril; fursemide prn. Code(s): I10 - ESSENTIAL (PRIMARY) HYPERTENSION Qualifiers: (5) Hyperlipidemia associated with type 2 diabetes mellitus Assessment/Plan: f/u lipid profile Code(s): E11.69 - TYPE 2 DIABETES MELLITUS WITH OTHER SPECIFIED COMPLICATION; E78.5 - HYPERLIPIDEMIA, UNSPECIFIED (6) Osteomyelitis Assessment/Plan: f/u wound care; on antibiotics, hyperbaric Rx Code(s): M86.9 - OSTEOMYELITIS, UNSPECIFIED
[2018-10-05] MEDS ORDERED: ATORVASTATIN CA 10 MG TABLET (FP) PO SCH (00:02)
[2018-10-05 06:45] LABS: BASO % 0.8 % (0-2.0); EOS % 17.2 % (0-4.5); HEMOGLOBIN 10.4 GM/dL (10.7-15.3); LYMPH % 23.9 % (8-40); MCHC 33.4 g/dl (32.0-36.0); MEAN CELL VOLUME 86.7 fl (80-96); MEAN PLT VOLUME 9.1 fl (7.5-11.1); NEUT % 47.1 % (42.8-82.8); PLATELET COUNT 229 K/MM3 (134-434); RBC 3.57 M/mm3 (3.60-5.2); WHITE BLOOD COUNT 6.7 K/mm3 (4.0-10.0)
[2018-10-05 07:00] LABS: ANION GAP 6 MMOL/L (8-16); BLOOD UREA NITROGEN 16 mg/dL (7-18); CALCIUM 8.3 mg/dL (8.5-10.1); CHLORIDE 105 mmol/L (98-107); CO2 27 mmol/L (21-32); CREATININE 0.8 mg/dL (0.55-1.3); GLUCOSE,RANDOM 298 mg/dL (74-106); MAGNESIUM 2.2 mg/dL (1.8-2.4); PHOSPHOROUS 3.2 mg/dL (2.5-4.9); SODIUM 138 mmol/L (136-145)
[2018-10-05] MEDS ORDERED: INSULIN (NOVOLOG MIX 70/30) 100 UNITS/ML MDV SQ SCH (07:00)
[2018-10-05] MEDS ORDERED: REGADENOSON 0.4 MG/5 ML PRE-FILLED SYRINGE IVPUSH ONE ×2 (09:05→10:30)
[2018-10-05] MEDS ORDERED: FUROSEMIDE 40 MG TABLET (FP) PO SCH (10:00)
[2018-10-05] MEDS ORDERED: ENOXAPARIN NA (PORCINE) 80 MG/0.8 ML DISP.SYRIN SQ SCH (10:00)
[2018-10-05] MEDS ORDERED: ENALAPRIL MALEATE 5 MG TABLET (FP) PO SCH (10:00)
--- NOTE | 2018-10-05 11:07 | PN ---
Progress Note (short form) - Note Progress Note: patient for stress test will follow Vital Signs Temp 97.6 F 10/05/18 06:00 Pulse 77 10/05/18 06:00 Resp 20 10/05/18 06:00 BP 134/64 10/05/18 06:00 Pulse Ox 94 L 10/05/18 04:44 Intake & Output 10/04/18 10/04/18 10/05/18 11:59 23:59 11:59 Weight 177 lb 177 lb 3.2 oz Other: Voiding Method Toilet # Unmeasured Voids Void 2 Height 5 ft 7 in 5 ft 7 in Body Mass Index (BMI) 27.7 27.7 Weight Measurement Method Standing Scale Weight Measurement Method Est/Stated by Patient Active Medications Atorvastatin Calcium (Lipitor -) 10 mg PO HS FOR[facility]LY [facility], [facility] Last Admin: 10/05/18 00:55 Dose: 10 mg Enalapril Maleate (Vasotec -) 5 mg PO DAILY [facility], [facility]1983 Enoxaparin Sodium (Lovenox -) 80 mg SQ BID MANUELA Furosemide (Lasix -) 40 mg PO DAILY [facility] Insulin Aspart (Novolog Mix 70/30 Vial) 30 units SQ [facility] Last Admin: 10/05/18 06:28 Dose: 30 units Insulin Detemir (Levemir Vial) 10 units SQ HS [facility] Metoprolol Succinate (Toprol Xl -) 50 mg PO DAILY [facility], [facility]1983 Non-Formulary Medication (Vancomycin/0.9 % Sod Chloride [Vanco 1.5 Gm/500 Ml-0.9 % Nacl]) 1.75 gm IV DAILY [facility], [facility] CBC, BMP 10/05/18 05:30 10/05/18 05:30
--- NOTE | 2018-10-05 11:40 | ECHO ---
Name: ALYCE HANCOCK Exam:Adult Echocardiogram Study Date: 10/05/2018 09:34 AM Age: 77 yrs Reason For Study: Chest pain Height: 67 in Weight: 177 lb BSA: 1.9 m2 MMode/2D Measurements & Calculations IVSd: 1.5 cm Ao root diam: 2.9 cm LVIDd: 3.3 cm LA dimension: 3.2 cm LVIDs: 2.3 cm LVPWd: 1.1 cm EDV(Teich): 45.5 ml LVOT diam: 2.0 cm ESV(Teich): 17.7 ml LAV (MOD-bp): 50.1 ml Doppler Measurements & Calculations MV E max nathanael: 127.0 cm/sec Ao V2 max: 164.2 cm/sec MV A max nathanael: 103.3 cm/sec Ao max P.8 mmHg MV E/A: 1.2 MV dec time: 0.20 sec XAVI(V,D): 2.1 cm2 LV V1 max P.7 mmHg MR max nathanael: 408.0 cm/sec LV V1 max: 108.7 cm/sec MR max P.6 mmHg TR max nathanael: 297.7 cm/sec PA V2 max: 104.5 cm/sec TR max P.5 mmHg PA max P.4 mmHg Med Peak E' Nathanael: 7.1 cm/sec PI Vmax: 103.2 cm/sec Med E/e': 18.0 Lat Peak E' Nathanael: 5.5 cm/sec Lat E/e': 22.9 Left Ventricle Mild basal septal hypertrophy. Left ventricular systolic function is normal. Ejection Fraction = 55-6 0%. Right Ventricle The right ventricle is normal in size and function. Atria The left atrium is borderline dilated. Mitral Valve There is mild to moderate mitral annular calcification. There is no mitral valve stenosis. There is m ild mitral regurgitation. Tricuspid Valve The tricuspid valve is normal in structure and function. There is mild tricuspid regurgitation. Right ventricular systolic pressure is elevated at 30-40mmHg. Aortic Valve There is moderate aortic sclerosis.;. No hemodynamically significant valvular aortic stenosis. No aor tic regurgitation is present. Pulmonic Valve The pulmonic valve is not well seen, but is grossly normal. There is no pulmonic valvular stenosis. Great Vessels The aortic root is normal size. Pericardium/Pleura There is no pericardial effusion. Interpretation Summary Mild basal septal hypertrophy. Left ventricular systolic function is normal. Ejection Fraction = 55-60%. The right ventricle is normal in size and function. The left atrium is borderline dilated. There is mild to moderate mitral annular calcification. There is mild mitral regurgitation. There is mild tricuspid regurgitation. Right ventricular systolic pressure is elevated at 30-40mmHg. There is moderate aortic sclerosis.; There is no pericardial effusion. MD Lovell *Nicole 10/05/2018 11:39 AM
[2018-10-05] MEDS ORDERED: AMINOPHYLLINE 250 MG/10 ML VIAL ONE (12:23)
[2018-10-05] MEDS ORDERED: AMINOPHYLLINE 250 MG/10 ML VIAL IVPUSH ONE (13:00)
--- NOTE | 2018-10-05 13:40 | EKG ---
Test Reason : Blood Pressure : / mmHG Vent. Rate : 075 BPM Atrial Rate : 075 BPM P-R Int : 210 ms QRS Dur : 100 ms QT Int : 402 ms P-R-T Axes : 080 019 038 degrees QTc Int : 448 ms SINUS RHYTHM WITH 1ST DEGREE A-V BLOCK WITH PREMATURE ATRIAL COMPLEXES WITH ABERRANT CONDUCTION OTHERWISE NORMAL ECG WHEN COMPARED WITH ECG OF 05-OCT-2018 02:13, PREMATURE VENTRICULAR COMPLEXES ARE NO LONGER PRESENT ABERRANT CONDUCTION IS NOW PRESENT Confirmed by LAYNE SMITH MD ([id number]) on 10/05/2018 1:39:44 PM Referred By: YOLIE Confirmed By:LAYNE SMITH MD
--- NOTE | 2018-10-05 13:40 | EKG ---
Test Reason : Blood Pressure : / mmHG Vent. Rate : 063 BPM Atrial Rate : 063 BPM P-R Int : 198 ms QRS Dur : 098 ms QT Int : 412 ms P-R-T Axes : 068 001 029 degrees QTc Int : 421 ms SINUS RHYTHM WITH OCCASIONAL PREMATURE VENTRICULAR COMPLEXES OTHERWISE NORMAL ECG WHEN COMPARED WITH ECG OF 04-OCT-2018 18:52, SINUS RHYTHM HAS REPLACED JUNCTIONAL RHYTHM Confirmed by LAYNE SMITH MD ([id number]) on 10/05/2018 1:40:21 PM Referred By: Confirmed By:LAYNE SMITH MD
--- NOTE | 2018-10-05 14:44 | EKG ---
Test Reason : Blood Pressure : / mmHG Vent. Rate : 075 BPM Atrial Rate : 075 BPM P-R Int : 000 ms QRS Dur : 102 ms QT Int : 394 ms P-R-T Axes : 000 169 144 degrees QTc Int : 439 ms NORMAL SINUS RHYTHM WITH 1ST DEGREE A-V BLOCK PREMATURE VENTRICULAR COMPLEXES RIGHT AXIS DEVIATION NONSPECIFIC T WAVE ABNORMALITY ABNORMAL ECG Confirmed by LAYNE SMITH MD ([id number]) on 10/05/2018 2:44:23 PM Referred By: Confirmed By:LAYNE SMITH MD
--- NOTE | 2018-10-05 14:46 | CON.ID ---
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 Cardio/Vascular: Yes: HTN, Hyperlipdemia ...: No Infectious Disease: Yes: MRSA Endocrine: Yes: Diabetes Mellitus - Alcohol/Substance Use Hx Alcohol Use: No History of Substance Use: reports: None - Smoking History Smoking history: Former smoker Have you smoked in the past 12 months: No Aproximately how many cigarettes per day: 0 - Social History ADL: Independent History of Recent Travel: No Home Medications - Allergies Allergies/Adverse Reactions: Allergies Allergy/AdvReac Type Severity Reaction Status Date / Time Penicillins Allergy Severe Hives Verified 09/03/18 16:31 aspirin AdvReac Intermediate Nausea,STOMACH Verified 09/03/18 16:31 PAIN - Home Medications Home Medications: Ambulatory Orders Furosemide [Lasix] 20 mg PO DAILY 08/09/18 Atorvastatin Ca [Lipitor] 10 mg PO HS tablet 08/13/18 Enalapril Maleate [Vasotec -] 5 mg PO DAILY tablet 08/13/18 Insulin Sliding Scale [Novolog Vial Sliding Scale -] 1 vial SQ BID units Metoprolol Succinate [Toprol XL -] 50 mg PO DAILY tab.sr.24h 08/13/18 Insulin (Levemir) [Levemir Vial] 8 units SQ HS units 09/08/18 Insulin (Novolog 70/30) [Novolog Mix 70/30 Vial -] 30 units SQ BIDAC units Miconazole Nitrate [Monistat-7 Vaginal Suppository -] 100 mg PV HS supp.vag Vancomycin/0.9 % Sod Chloride [Vanco 1.5 gm/500 ml-0.9% NaCl] 1.5 gm IV DAILY 42 Days #42 plast..bag 09/08/18 Physical Exam Vital Signs: Vital Signs Temperature 98 F 10/05/18 10:00 Pulse Rate 62 10/05/18 10:00 Respiratory Rate 20 10/05/18 10:00 Blood Pressure 111/44 L 10/05/18 10:00 O2 Sat by Pulse Oximetry (%) 94 L 10/05/18 09:00 Labs: CBC, BMP 10/05/18 05:30 10/05/18 05:30
[2018-10-05 15:46] VITALS: BP 134/49; PULSE 68; TEMP 97.9
--- NOTE | 2018-10-05 15:52 | DS ---
Physical Examination Vital Signs: Vital Signs Temperature 97.9 F 10/05/18 14:00 Pulse Rate 68 10/05/18 14:00 Respiratory Rate 20 10/05/18 10:00 Blood Pressure 134/49 L 10/05/18 14:00 O2 Sat by Pulse Oximetry (%) 94 L 10/05/18 09:00 Findings/Remarks: Comfortable Constitutional: Yes: No Distress Cardiovascular: Yes: Regular Rate and Rhythm Respiratory: Yes: CTA Bilaterally Gastrointestinal: Yes: Soft Edema: No Labs: CBC, BMP 10/05/18 05:30 10/05/18 05:30 Discharge Summary Reason For Visit: ABNORMAL ELECTROCARDIOGRAPHY Current Active Problems Abnormal EKG (Acute) Chest pain (Acute) Hospital Course: admitted for chest pain VT rule out stress test negative Discharge home today follow-up in office--2 weeks Continue antibiotics--- as before discussed with ID also Condition: Stable - Instructions Disposition: HOME - Home Medications Comprehensive Discharge Medication List: Ambulatory Orders Furosemide [Lasix] 20 mg PO DAILY 08/09/18 Atorvastatin Ca [Lipitor] 10 mg PO HS tablet 08/13/18 Enalapril Maleate [Vasotec -] 5 mg PO DAILY tablet 08/13/18 Insulin Sliding Scale [Novolog Vial Sliding Scale -] 1 vial SQ BID units Metoprolol Succinate [Toprol XL -] 50 mg PO DAILY tab.sr.24h 08/13/18 Miconazole Nitrate [Monistat-7 Vaginal Suppository -] 100 mg PV HS supp.vag Vancomycin/0.9 % Sod Chloride [Vanco 1.5 gm/500 ml-0.9% NaCl] 1.5 gm IV DAILY 42 Days #42 plast..bag 09/08/18 Insulin (Levemir) [Levemir Vial] 10 units SQ HS #0 units 10/05/18 Insulin (Novolog 70/30) [Novolog Mix 70/30 Vial -] 33 units SQ BIDAC #0 units
[2018-10-05] MEDS ORDERED: INSULIN (LEVEMIR) 100 UNITS/ML UNITS SQ SCH (22:00)
== END 2018-10-05 16:35 | disposition home or self-care (01) | DRG 313 ==
LOC: JER 16:37 → JERBED 20:00 → J4W 10-05 02:43
PROVIDERS: ADMIT Internal Medicine; ATTEND Internal Medicine
DX: R07.9 Chest pain, unspecified (principal); M86.9 Osteomyelitis, unspecified; E11.621 Type 2 diabetes mellitus with foot ulcer; L97.519 Non-pressure chronic ulcer of other part of right foot with unspecified severity; I10 Essential (primary) hypertension; E78.5 Hyperlipidemia, unspecified; K21.9 Gastro-esophageal reflux disease without esophagitis; G62.9 Polyneuropathy, unspecified; Z87.891 Personal history of nicotine dependence; R94.31 Abnormal electrocardiogram [ECG] [EKG]; Z79.4 Long term (current) use of insulin
CPT/HCPCS: 36415; 71046-TC-FY; 78452-TC; 80048; 80053; 80061; 82550; 82962; 83721; 83735; 84100; 84443; 84484; 85025; 93005; 93010; 93017; 93306-TC; 99283-25; A9502; G0463-25; G0480; J2785

== ENCOUNTER 2019-03-02 16:00 | Inpatient (IN) | payer OTHER ==
--- NOTE | 2019-03-02 16:46 | PDOC ---
History of Present Illness - General Chief Complaint: SIRS, Suspected/Possible Stated Complaint: INFECTION/SOB/CP Time Seen by Provider: 03/02/19 16:36 History Source: Patient Exam Limitations: No Limitations - History of Present Illness Initial Comments: Ellie Alford is an 78 yo F w a pmh of recently diagnosed influenza at Dr. Mclean office, HTN, HLD, IDDM, Osteomyelitis of the toe (Hyperbaric Treatment) who presents to the ER with her daughter stating she feels awful, has fevers, the shakes, adn diffuse rigors and body pains. The patient states she was seen in [facility] 2 days ago, had a nasal flu swab which was positive and prescribed oseltamavir and ciprofloxacin. The patient has not gotten better with the meds and experienced multiple episodes of NBNB vomiting after taking the flu medication. Dr. Jaelyn Mclean states she should come to the ER to get IV hydration and possibly some IV antibiotics. Patient denies having back pain, abdominal pain, dysuria, frequency, or urgency. PCP: [facility] M[facility] PSH: None reported Social Hx: Former smoker Allergies: Penicillis, aspirin Past History - Past Medical History Allergies/Adverse Reactions: Allergies Allergy/AdvReac Type Severity Reaction Status Date / Time Penicillins Allergy Severe Hives Verified 09/03/18 16:31 aspirin AdvReac Intermediate Nausea,STOMACH Verified 09/03/18 16:31 PAIN Home Medications: Ambulatory Orders Furosemide [Lasix] 20 mg PO DAILY 08/09/18 Atorvastatin Ca [Lipitor] 10 mg PO HS tablet 08/13/18 Enalapril Maleate [Vasotec -] 5 mg PO DAILY tablet 08/13/18 Metoprolol Succinate [Toprol XL -] 50 mg PO DAILY tab.sr.24h 08/13/18 Insulin (Levemir) [Levemir Vial] 10 units SQ HS #0 units 10/05/18 Insulin (Novolog 70/30) [Novolog Mix 70/30 Vial -] 33 units SQ BIDAC #0 units Becaplermin [Regranex] 15 gm TP DAILY 30 Days #1 gel..gram. 11/14/18 Anemia: No Asthma: No Cancer: No Cardiac Disorders: No CVA: No COPD: No CHF: No Dementia: No Diabetes: Yes (IDDM) GI Disorders: Yes (acid reflux) Disorders: No HTN: Yes Hypercholesterolemia: Yes Liver Disease: No Seizures: No Thyroid Disease: No - Surgical History Abdominal Surgery: No Appendectomy: No Cardiac Surgery: No Cholecystectomy: No Lung Surgery: No Neurologic Surgery: No Orthopedic Surgery: No - Immunization History Immunization Up to Date: Yes - Psycho Social/Smoking Cessation Hx Smoking Status: No Smoking History: Never smoked Have you smoked in the past 12 months: No Number of Cigarettes Smoked Daily: 0 Information on smoking cessation initiated: No Hx Alcohol Use: No Drug/Substance Use Hx: No Substance Use Type: None Hx Substance Use Treatment: No Review of Systems - Review of Systems Able to Perform ROS?: Yes Comments:: CONSTITUTIONAL: Present: Fever, chills Absent: no fatigue EYES: Absent: visual changes ENT: Absent: ear pain, no sore throat CARDIOVASCULAR: Absent: chest pain, no palpitations RESPIRATORY: Present: cough, SOB GI: Present: nausea, vomiting Absent: abdominal pain, no constipation, no diarrhea GENITOURINARY: Absent: dysuria, no frequency, no hematuria MUSKULOSKELETAL: Present: myalgia Absent: back pain, no arthralgia SKIN: Absent: rash NEURO: Absent: headache *Physical Exam - Vital Signs Last Vital Signs Temp Pulse Resp BP Pulse Ox 103.0 F H 106 H 16 190/71 H 92 L 03/02/19 16:08 03/02/19 16:08 03/02/19 16:08 03/02/19 16:08 03/02/19 16:08 - Physical Exam Comments: GENERAL: Patient looks pale and fatigued. Mild apparent distress. HEENT: Normocephalic, atraumatic. PERRL, EOM intact. CARDIOVASCULAR: Tachycardic rate. Normal S1, S2. Regular rhythm. PULMONARY: There are focal crackles in the right middle/lower lobe. Mild evidence of respiratory distress. No wheezing or rhonchi. ABDOMEN: Soft, non-distended, non-tender. EXTREMITIES: 1+ edema in both lower extremities. Normal ROM in all four extremities. No gross deformities. SKIN: Warm, dry. No rash NEUROLOGICAL: No focal neurological deficits. ED Treatment Course - LABORATORY CBC & Chemistry Diagram: 03/02/19 18:20 03/02/19 18:20 Medical Decision Making - Medical Decision Making Ellie Alford is an 78 yo F w a pmh of recently diagnosed influenza at Dr. Mclean office, HTN, HLD, IDDM, Osteomyelitis of the toe (Hyperbaric Treatment) who presents to the ER with her daughter stating she feels awful, has fevers, the shakes, adn diffuse rigors and body pains. The patient states she was seen in [facility] 2 days ago, had a nasal flu swab which was positive and prescribed oseltamavir and ciprofloxacin. The patient has not gotten better with the meds and experienced multiple episodes of NBNB vomiting after taking the flu medication. Dr. Jaelyn Mclean states she should come to the ER to get IV hydration and possibly some IV antibiotics. Patient denies having back pain, abdominal pain, dysuria, frequency, or urgency. Vital Signs Temp Pulse Resp BP Pulse Ox 103.0 F H 106 H 16 190/71 H 92 L 03/02/19 16:08 03/02/19 16:08 03/02/19 16:08 03/02/19 16:08 03/02/19 16:08 - febrile - Tachycardic - hypoxic on RA to 90 DDx IBNLT: Influenza, PNA, sepsis, electrolyte/metabolic disturbance, dehydration Plan: ED adult sepsis workup, CXR, IV fluids, tylenol, re-assess. EKG: Sinus tachycardia rate of 103, narrow complexes, normal axis, no hypertrophy, No large ST elevations or depressions, no abnormal TWI's, QTc 450, W[place] 200 Labs: Leukocytosis, elevated BUN Urine: Urine Test Results Urine Color Yellow 03/02/19 18:50 Urine Appearance Cloudy 03/02/19 18:50 Urine pH 5.5 (5.0-8.0) 03/02/19 18:50 Ur Specific [place] 1.024 (1.010-1.035) 03/02/19 18:50 Urine Protein 2+ (NEGATIVE) H 03/02/19 18:50 Urine Glucose (UA) 3+ (NEGATIVE) H 03/02/19 18:50 Urine Ketones 1+ (NEGATIVE) H 03/02/19 18:50 Urine Blood 3+ (NEGATIVE) H 03/02/19 18:50 Urine Nitrite Negative (NEGATIVE) 03/02/19 18:50 Urine Bilirubin Negative (NEGATIVE) 03/02/19 18:50 Ur Leukocyte Esterase Trace (NEGATIVE) 03/02/19 18:50 CXR: increased congestive changes Re-assessment: Patient feels fatigued and not well despite fluids and anti- pyretics. Disposition: Admit to hospital Discharge - Discharge Information Problems reviewed: Yes Clinical Impression/Diagnosis: Systemic inflammatory response syndrome (SIRS), Influenza Sepsis Qualifiers: Sepsis type: sepsis due to unspecified organism Sepsis acute organ dysfunction status: unspecified Qualified Code(s): A41.9 - Sepsis, unspecified organism Pneumonia Qualifiers: Pneumonia type: due to unspecified organism Laterality: right Lung location: middle lobe of lung Qualified Code(s): J18.1 - Lobar pneumonia, unspecified organism Condition: Stable - Admission Yes - Follow up/Referral Referrals: Chloé Garcia MD [Primary Care Provider] - - Patient Discharge Instructions - Post Discharge Activity
--- NOTE | 2019-03-02 16:56 | PDOC ---
Attending Attestation - Resident Resident Name: Almas Sanderson - ED Attending Attestation I have performed the following: I have examined & evaluated the patient, The case was reviewed & discussed with the resident, I agree w/resident's findings & plan, Exceptions are as noted - HPI HPI: 03/02/19 17:21 Pt is a 78y F hx of htn, hl, dm, osteo, recently dx with flu at her PMDs office - notes she has been coughing for about 4-5 days and having some chills. Went to dr. Joshi office ysterday and had a +flu swab and was started with tamiflu and levaquin. Pt notes she feels very week and endorses bdoy aches. Pt ulysses any cp, n/v, back pain, dysuria, frquency, diarrhea, melena bpr. Upon arrival, pts labs noted for fever and was hypoic to 93% On exam: general: no acute distress pulm: scant rales at R base, no acute respiratory distres abd: sof tnotnender, no rebound/guarding, neg cva tenderness ext: + pitten edema b/l, neg homans card: slightly tachycardic suspect flu vs pna sepsis orderset obtained will hydrate, antipyretic cxr will reassess, anticipate admission as she is hypxic - Physicial Exam PE: 03/03/19 15:39 see above - Medical Decision Making 03/03/19 15:39 see above Heart Score/ECG Review - ECG Impressions Comment:: 03/02/19 17:24 EKG eorformed 16:11 rate of [address] wave changes normal axis impression: sinus tachycardia
[2019-03-02] MEDS ORDERED: ACETAMINOPHEN 1000 MG/100 ML VIAL (NON FORMULARY) IVPB ONE (17:01)
[2019-03-02 18:31] LABS: BASO % 0.5 % (0-2.0); HEMATOCRIT 29.7 % (32.4-45.2); HEMOGLOBIN 9.7 GM/dL (10.7-15.3); LYMPH % 4.9 % (8-40); MCH 27.6 pg (25.7-33.7); MCHC 32.6 g/dl (32.0-36.0); MEAN CELL VOLUME 84.6 fl (80-96); MEAN PLT VOLUME 8.6 fl (7.5-11.1); MONO % 11.6 % (3.8-10.2); PLATELET COUNT 238 K/MM3 (134-434); RBC 3.51 M/mm3 (3.60-5.2); RDW 14.1 % (11.6-15.6); WHITE BLOOD COUNT 13.8 K/mm3 (4.0-10.0)
[2019-03-02 18:35] LABS: VENOUS PH 7.49 (7.31-7.41)
[2019-03-02] MEDS ORDERED: LACTATED RINGERS SOLUTION 1,000 ML/1,000 ML INFUS.BAG IV STA ×2 (18:38→18:55)
[2019-03-02] MEDS ORDERED: ACETAMINOPHEN INJECTION 100 ML IVPB ONE (18:40)
[2019-03-02 18:56] LABS: ALBUMIN 2.6 g/dl (3.4-5.0); BILIRUBIN,TOTAL 1.4 mg/dL (0.2-1); BLOOD UREA NITROGEN 20.3 mg/dL (7-18); CALCIUM 8.5 mg/dL (8.5-10.1); CREATININE 1.1 mg/dL (0.55-1.3); POTASSIUM 3.6 mmol/L (3.5-5.1)
[2019-03-02 19:13] LABS: INR 1.29 (0.83-1.09); PROTHROMBIN TIME (PATIENT) 15.3 SEC (9.7-13.0)
[2019-03-02 19:16] LABS: ACTIVATED PTT 29.9 SECONDS (25.2-36.5)
[2019-03-02 19:17] LABS: HYALINE CASTS 2 /lpf (0-8); PH,URINE 5.5 (5.0-8.0); URINE APPEARANCE CLOUDY; URINE BACTERIA >9000 /hpf (NEGATIVE); URINE BILIRUBIN NEGATIVE (NEGATIVE); URINE COLOR YELLOW; URINE GLUCOSE (UA) 3+ (NEGATIVE); URINE KETONE 1+ (NEGATIVE); URINE LEUK ESTERASE TRACE (NEGATIVE); URINE NITRITE NEGATIVE (NEGATIVE); URINE PROTEIN 2+ (NEGATIVE); URINE RBC 40 /hpf (0-4); URINE WBC 28 /hpf (0-5)
[2019-03-02] MEDS ORDERED: AZITHROMYCIN IVPB 500 MG in DEXTROSE 5%-WATER - 250 ML IVPB ONE (19:52)
[2019-03-02] MEDS ORDERED: CEFTRIAXONE 1,000 MG in DEXTROSE 5%-WATER - 50 ML IVPB ONE (19:52)
[2019-03-02] MEDS ORDERED: AZITHROMYCIN IVPB 500 MG/250 ML BAG IVPB ONE (20:22)
[2019-03-02] MEDS ORDERED: CEFTRIAXONE 1 GM/50 ML BAG ONE (20:22)
--- NOTE | 2019-03-02 20:32 | HP ---
Admitting History and Physical - Primary Care Physician PCP: Dr. Garcia - Admission Chief Complaint: Fever, influenza ( dx at PMD office) History of Present Illness: 78 year old female with PMH of HTN, HLD, DM, and h/o of Osteomyelitis of the right second toe ( hyperbaric treatment) arrived to ED with complain of fever, chills, N/V and body aches. According to daughter at bedside, patient slid out of bed on Monday night due to severe shivering (attempted to get out of bed), complain of left hip pain, did not hit her head or lost LOC. Yesterday went to PMD (Dr. Holman) due to fever, chills at office diagnosed with flu and UTI, was given Cipro PO, and Oseltamavir. However symptoms did not improve and daughter called PMD who recommended to bring patient to ED for further Evaluation. Patient denies CP, headache, dizziness, constipation,diarrhea, or urinary symptoms. 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 Cardiovascular: Yes: HTN, Hyperlipdemia Gastrointestinal: Yes: GERD Heme/Onc: Yes: Anemia Infectious Disease: Yes: MRSA Endocrine: Yes: Diabetes Mellitus - Past Surgical History Past Surgical History: Yes: None - Smoking History Smoking history: Never smoked Have you smoked in the past 12 months: No Aproximately how many cigarettes per day: 0 - Alcohol/Substance Use Hx Alcohol Use: No History of Substance Use: reports: None - Social History ADL: Independent History of Recent Travel: No Home Medications - Allergies Allergies/Adverse Reactions: Allergies Allergy/AdvReac Type Severity Reaction Status Date / Time Penicillins Allergy Severe Hives Verified 09/03/18 16:31 aspirin AdvReac Intermediate Nausea,STOMACH Verified 09/03/18 16:31 PAIN - Home Medications Home Medications: Ambulatory Orders Furosemide [Lasix] 20 mg PO DAILY 08/09/18 Atorvastatin Ca [Lipitor] 10 mg PO HS tablet 08/13/18 Enalapril Maleate [Vasotec -] 5 mg PO DAILY tablet 08/13/18 Metoprolol Succinate [Toprol XL -] 50 mg PO DAILY tab.sr.24h 08/13/18 Insulin (Levemir) [Levemir Vial] 10 units SQ HS #0 units 10/05/18 Insulin (Novolog 70/30) [Novolog Mix 70/ Vial -] 33 units SQ BIDAC #0 units Becaplermin [Regranex] 15 gm TP DAILY 30 Days #1 gel..gram. 11/14/18 Family Medical History Family History: Denies Review of Systems - Review of Systems Constitutional: reports: Chills, Fever, Malaise, Weakness Eyes: reports: No Symptoms HENT: reports: No Symptoms Neck: reports: No Symptoms Cardiovascular: reports: No Symptoms Respiratory: reports: Cough, SOB Gastrointestinal: reports: Nausea, Vomiting Genitourinary: reports: No Symptoms Musculoskeletal: reports: No Symptoms Integumentary: reports: No Symptoms Neurological: reports: No Symptoms Endocrine: reports: No Symptoms Physical Examination Vital Signs: Vital Signs Temperature 103.0 F H 03/02/19 16:08 Pulse Rate 106 H 03/02/19 16:08 Respiratory Rate 16 03/02/19 16:08 Blood Pressure 190/71 H 03/02/19 16:08 O2 Sat by Pulse Oximetry (%) 92 L 03/02/19 16:08 Constitutional: Yes: Mild Distress, Pallor Eyes: Yes: Conjunctiva Clear, EOM Intact HENT: Yes: Atraumatic, Normocephalic Neck: Yes: Trachea Midline Cardiovascular: Yes: Regular Rate and Rhythm, Tachycardia, S1, S2 Respiratory: Yes: Regular, Rales Gastrointestinal: Yes: Normal Bowel Sounds, Soft Musculoskeletal: Yes: WNL Edema: Yes Edema: LLE: 3+, RLE: 3+ Peripheral Pulses WNL: Yes Neurological: Yes: Alert, Oriented Labs: CBC, BMP 03/02/19 18:20 03/02/19 18:20 Imaging - Results Chest X-ray: Report Reviewed (CXR: increase b/l congestion ? infiltrate) EKG: Report Reviewed (KG: Sinus tachycardia rate of 103, narrow complexes, normal axis, no hypertrophy, No large ST elevations or depressions, no abnormal TWI's, QTc 450, NC 200) Other: Report Reviewed (wbc: 13.8 lactic 1.1 bun/cr: 20.3/ 1.1) Problem List - Problems (1) Sepsis Code(s): A41.9 - SEPSIS, UNSPECIFIED ORGANISM Qualifiers: Sepsis type: sepsis due to unspecified organism Sepsis acute organ dysfunction status: unspecified Qualified Code(s): A41.9 - Sepsis, unspecified organism (2) Influenza Code(s): J11.1 - FLU DUE TO UNIDENTIFIED INFLUENZA VIRUS W OTH RESP MANIFEST (3) Pneumonia Code(s): J18.9 - PNEUMONIA, UNSPECIFIED ORGANISM Qualifiers: Pneumonia type: due to unspecified organism Laterality: right Lung location: middle lobe of lung Qualified Code(s): J18.1 - Lobar pneumonia, unspecified organism (4) HLD (hyperlipidemia) Code(s): E78.5 - HYPERLIPIDEMIA, UNSPECIFIED (5) HTN (hypertension) Code(s): I10 - ESSENTIAL (PRIMARY) HYPERTENSION Qualifiers: (6) Insulin dependent diabetes mellitus Code(s): E11.9 - TYPE 2 DIABETES MELLITUS WITHOUT COMPLICATIONS; Z79.4 - MANAGER ONLINE (CURRENT) USE OF INSULIN Assessment/Plan 78 year old female with PMH of HTN, HLD, DM, and h/o of Osteomyelitis of the right second toe ( hyperbaric treatment) arrived to ED with complain of fever, chills, N/V and body aches. #Sepsis secondary pneumonia #Influenza ( + at PMD office) Prerenal Azotemia CXR: increased congestive changes,? infiltrate UA: negative EKG: Sinus tachycardia rate of 103, narrow complexes, normal axis, no hypertrophy, No large ST elevations or depressions, no abnormal TWI's, QTc 450, NC 200 Labs: Leukocytosis 13.8, lactic acid 1.1 Elevated BUN/cr: 20.3/1.1 In ED given antipyretic, IV fluids 1L, and x1 dose of ceftriaxone/Azithromycin - follow up Blood and urine culture - follow up CBC, BMP in AM - continue with IV ceftriaxone - cr clearance 51, will adjust renal dose, continue with PO tamiflu - follow up ID in AM - Tylenol PO q 4 hours - Continue with o2 via NC # HTN/HLD - Furosemide 20 mg PO DAILY - Atorvastatin Ca 10 mg PO HS - Enalapril Maleate 5 mg PO DAILY - Metoprolol Succinate 50 mg PO DAILY # DM - mointor FSBS AC BID, coverage with novolog sliding scale - Insulin (Levemir) 10 units SQ HS - Becaplermin 15 gm TP DAILY Visit type - Emergency Visit Emergency Visit: Yes ED Registration Date: 03/02/19 Care time: The patient presented to the Emergency Department on the above date and was hospitalized for further evaluation of their emergent condition. - New Patient This patient is new to me today: Yes Date on this admission: 03/02/19 - Critical Care Critical Care patient: No
[2019-03-02] MEDS ORDERED: ACETAMINOPHEN 325 MG TABLET (FP) PO PRN (21:03)
[2019-03-02] MEDS ORDERED: ONDANSETRON 4 MG/2 ML VIAL IVPUSH PRN (21:03)
[2019-03-02] MEDS ORDERED: ATORVASTATIN CA 10 MG TABLET (FP) ONE (21:54)
[2019-03-02] MEDS ORDERED: INSULIN (LEVEMIR) 100 UNITS/ML UNITS SQ SCH (22:00)
[2019-03-02] MEDS: OSELTAMIVIR PHOSPHATE 30 MG CAPSULE PO SCH (22:55)
[2019-03-02] MEDS: HEPARIN NA (PORCINE) 5,000 UNITS/ML 1ML VIAL SQ SCH (22:55)
[2019-03-02] MEDS: ATORVASTATIN CA 10 MG TABLET (FP) PO SCH (22:55)
[2019-03-03] MEDS: INSULIN (NOVOLOG) ASPART 100 UNITS/ML 10ML VIAL SQ SCH ×2 (06:24→18:00)
[2019-03-03 06:54] LABS: HEMATOCRIT 27.1 % (32.4-45.2); HEMOGLOBIN 9.1 GM/dL (10.7-15.3); MCH 28.3 pg (25.7-33.7); MCHC 33.7 g/dl (32.0-36.0); MEAN PLT VOLUME 8.5 fl (7.5-11.1); PLATELET COUNT 243 K/MM3 (134-434); RBC 3.22 M/mm3 (3.60-5.2); RDW 14.4 % (11.6-15.6); WHITE BLOOD COUNT 13.5 K/mm3 (4.0-10.0)
[2019-03-03] MEDS ORDERED: INSULIN (NOVOLOG) ASPART 100 UNITS/ML 10ML VIAL SQ SCH (07:00)
[2019-03-03 07:14] LABS: BLOOD UREA NITROGEN 18.2 mg/dL (7-18); CALCIUM 8.5 mg/dL (8.5-10.1); CREATININE 0.9 mg/dL (0.55-1.3); POTASSIUM 3.6 mmol/L (3.5-5.1)
[2019-03-03] MEDS ORDERED: CEFTRIAXONE 1 GM in DEXTROSE 5%-WATER - 50 ML IVPB SCH (10:00)
[2019-03-03] MEDS ORDERED: FUROSEMIDE 20 MG TABLET (FP) PO SCH (10:00)
--- NOTE | 2019-03-03 10:12 | EKG ---
Test Reason : Blood Pressure : / mmHG Vent. Rate : 103 BPM Atrial Rate : 103 BPM P-R Int : 200 ms QRS Dur : 096 ms QT Int : 344 ms P-R-T Axes : 080 012 039 degrees QTc Int : 450 ms POOR DATA QUALITY, INTERPRETATION MAY BE ADVERSELY AFFECTED SINUS TACHYCARDIA NONSPECIFIC ST ABNORMALITY ABNORMAL ECG WHEN COMPARED WITH ECG OF 05-OCT-2018 06:26, ABERRANT CONDUCTION IS NO LONGER PRESENT ST NOW DEPRESSED IN LATERAL LEADS Confirmed by Barbara Meade ([id number]) on 03/03/2019 10:12:15 AM Referred By: Confirmed By:Barbara Meade
--- NOTE | 2019-03-03 10:56 | PN ---
Progress Note, Physician History of Present Illness: pt seen/ examined in er chart reviewed complains of generalized aches denies cp/sob/abd pain feels constipated reports whole body hurts - Current Medication List Current Medications: Active Medications Acetaminophen (Tylenol -) 650 mg PO Q4H PRN PRN Reason: FEVER Atorvastatin Calcium (Lipitor -) 10 mg PO HS [facility] Last Admin: 03/02/19 22:55 Dose: 10 mg Enalapril Maleate (Vasotec -) 5 mg PO DAILY [facility] Furosemide (Lasix -) 20 mg PO DAILY [facility] Heparin Sodium (Porcine) (Heparin -) 5,000 unit SQ BID [facility] Last Admin: 03/02/19 22:55 Dose: 5,000 unit Ceftriaxone Sodium 1 gm/ (Dextrose) 50 mls @ 100 mls/hr IVPB DAILY [facility]; Protocol Insulin Aspart (Novolog Vial) 0 units SQ BIDAC [facility]; Protocol Last Admin: 03/03/19 06:24 Dose: 8 units Insulin Detemir (Levemir Vial) 10 units SQ HS [facility] Last Admin: 03/02/19 22:55 Dose: 10 unit Metoprolol Succinate (Toprol Xl -) 50 mg PO DAILY [facility] Non-Formulary Medication (Becaplermin [Regranex]) 15 gm TP DAILY [facility] Ondansetron HCl (Zofran Injection) 4 mg IVPUSH Q6H PRN PRN Reason: NAUSEA Stop: 03/03/19 23:59 Oseltamivir Phosphate (Tamiflu -) 30 mg PO BID [facility]ELA Stop: 03/07/19 21:59 Last Admin: 03/02/19 22:55 Dose: 30 mg - Objective Vital Signs: Vital Signs Temperature 98.5 F 03/03/19 05:03 Pulse Rate 75 03/03/19 05:03 Respiratory Rate 17 03/03/19 05:03 Blood Pressure 141/80 03/03/19 05:03 O2 Sat by Pulse Oximetry (%) 95 03/03/19 05:03 Constitutional: Yes: No Distress Eyes: Yes: Conjunctiva Clear HENT: Yes: WNL, Other (mucosa dry) Neck: Yes: Supple Cardiovascular: Yes: Regular Rate and Rhythm Respiratory: Yes: CTA Bilaterally Gastrointestinal: Yes: Soft Edema: No Neurological: Yes: Alert Psychiatric: Yes: Alert Labs: CBC, BMP 03/03/19 06:20 03/03/19 06:20 INR, PTT INR 1.29 (0.83-1.09) H 03/02/19 18:20 - ....Imaging Chest X-ray: Report Reviewed EKG: Report Reviewed Problem List - Problems (1) Troponin level elevated Code(s): R79.89 - OTHER SPECIFIED ABNORMAL FINDINGS OF BLOOD CHEMISTRY (2) Influenza Code(s): J11.1 - FLU DUE TO UNIDENTIFIED INFLUENZA VIRUS W OTH RESP MANIFEST (3) HTN (hypertension) Code(s): I10 - ESSENTIAL (PRIMARY) HYPERTENSION Qualifiers: (4) UTI (urinary tract infection) Code(s): N39.0 - URINARY TRACT INFECTION, SITE NOT SPECIFIED Qualifiers: Urinary tract infection type: acute cystitis Hematuria presence: without hematuria Qualified Code(s): N30.00 - Acute cystitis without hematuria Assessment/Plan Continue abx contact isolation tylenol/ motrin for pain pt appears dry will hold lasix and give mild hydration +ve troponins-- likely demand ischemia cardiology consult requested will follow
[2019-03-03] MEDS ORDERED: INSULIN (LEVEMIR) 100 UNITS/ML UNITS SQ SCH (10:59)
[2019-03-03] MEDS: OSELTAMIVIR PHOSPHATE 30 MG CAPSULE PO SCH (11:09)
[2019-03-03] MEDS: HEPARIN NA (PORCINE) 5,000 UNITS/ML 1ML VIAL SQ SCH (11:09)
[2019-03-03] MEDS: D5-1/2NS+20 MEQ KCL - 20 MEQ/1,000 ML INFUS.BAG IV SCH (11:11)
[2019-03-03] MEDS: ENALAPRIL MALEATE 5 MG TABLET (FP) PO SCH (11:11)
[2019-03-03] MEDS ORDERED: CEFTRIAXONE 1 GM/50 ML BAG ONE (11:25)
--- NOTE | 2019-03-03 12:02 | CON.CARD ---
Consult Consult Specialty:: Cardiology Referred by:: Medicine Reason for Consultation:: elevated trop - History of Present Illness Chief Complaint: fever History of Present Illness: 78F h/o HTN, DM, HLD, osteomyelitis of R toe p/w fever, chills, N/V, body aches. Diagnosed with flu, UTI recently, not improving so came to ER. Feels tired this morning, no chest pain, palps, dizziness, dyspnea. 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 Cardio/Vascular: Yes: HTN, Hyperlipdemia Gastrointestinal: Yes: GERD Infectious Disease: Yes: MRSA Endocrine: Yes: Diabetes Mellitus - Past Surgical History Past Surgical History: Yes: None - Alcohol/Substance Use Hx Alcohol Use: No History of Substance Use: reports: None - Smoking History Smoking history: Never smoked Have you smoked in the past 12 months: No Aproximately how many cigarettes per day: 0 - Social History ADL: Independent History of Recent Travel: No Home Medications - Allergies Allergies/Adverse Reactions: Allergies Allergy/AdvReac Type Severity Reaction Status Date / Time Penicillins Allergy Severe Hives Verified 09/03/18 16:31 aspirin AdvReac Intermediate Nausea,STOMACH Verified 09/03/18 16:31 PAIN - Home Medications Home Medications: Ambulatory Orders Furosemide [Lasix] 20 mg PO DAILY 08/09/18 Atorvastatin Ca [Lipitor] 10 mg PO HS tablet 08/13/18 Enalapril Maleate [Vasotec -] 5 mg PO DAILY tablet 08/13/18 Metoprolol Succinate [Toprol XL -] 50 mg PO DAILY tab.sr.24h 08/13/18 Insulin (Levemir) [Levemir Vial] 10 units SQ HS #0 units 10/05/18 Insulin (Novolog 70/30) [Novolog Mix 70/30 Vial -] 33 units SQ BIDAC #0 units Becaplermin [Regranex] 15 gm TP DAILY 30 Days #1 gel..gram. 11/14/18 Family Medical History Family History: Unremarkable Review of Systems - Review of Systems Constitutional: reports: Chills, Fever Eyes: reports: No Symptoms HENT: reports: No Symptoms Neck: reports: No Symptoms Cardiovascular: reports: No Symptoms Respiratory: reports: No Symptoms Gastrointestinal: reports: Nausea Genitourinary: reports: No Symptoms Musculoskeletal: reports: No Symptoms Integumentary: reports: No Symptoms Neurological: reports: No Symptoms Endocrine: reports: No Symptoms Hematology/Lymphatic: reports: No Symptoms Psychiatric: reports: No Symptoms Vital Signs: Vital Signs Temperature 98.5 F 03/03/19 05:03 Pulse Rate 75 03/03/19 05:03 Respiratory Rate 17 03/03/19 05:03 Blood Pressure 141/80 03/03/19 05:03 O2 Sat by Pulse Oximetry (%) 95 03/03/19 05:03 Constitutional: Yes: No Distress, Calm Eyes: Yes: Conjunctiva Clear, EOM Intact HENT: Yes: Atraumatic, Normocephalic Neck: Yes: Supple, Trachea Midline Respiratory: Yes: Regular, CTA Bilaterally Gastrointestinal: Yes: Normal Bowel Sounds, Soft Cardiovascular: Yes: Regular Rate and Rhythm JVD: No Edema: No Integumentary: No: Jaundice Neurological: Yes: Alert, Oriented Psychiatric: No: Agitated - Other Data Labs, Other Data: CBC, BMP 03/03/19 06:20 03/03/19 06:20 INR, PTT INR 1.29 (0.83-1.09) H 03/02/19 18:20 Troponin, BNP 03/02/19 03/03/19 18:20 00:11 Troponin I 0.33 H 0.48 H Troponin, BNP 03/02/19 03/03/19 18:20 00:11 Troponin I 0.33 H 0.48 H Assessment/Plan EKG: sinus tach, no ischemic changes CXR: no acute process elevated troponin - likely demand in setting of infection - EKG no ischemic changes, less likely ACS - echo ordered flu, UTI - manage per primary HTN - cont home meds HLD - cont statin DM - manage per primary
--- NOTE | 2019-03-03 12:41 | CON.ID ---
Consult - History of Present Illness History of Present Illness: 78 y.o. female with PMH of DM, HTN, HLD, OM of toe presents with complaints of persistent fever/rigors, cough and malaise that began approximately a week ago. 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 In addition she states she has been having dysuria for "long time" and took antibiotics one month ago without resolution of symptoms. She denies flank pain/abd pain/diarrhea/SOB/CP otherwise. Denies any sick contacts or recent travel. In the ER noted to have fever of 103F, wbc of 13.8K, hyperglycemia, and noted to be weak and tachycardic. Currently still feels the same. CXR is negative but Blood cultures so far isolating gram neg organism, awaiting identification. 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 Cardio/Vascular: Yes: HTN, Hyperlipdemia Gastrointestinal: Yes: GERD Renal/: Yes: UTI Infectious Disease: Yes: MRSA Endocrine: Yes: Diabetes Mellitus - Past Surgical History Past Surgical History: Yes: None - Alcohol/Substance Use Hx Alcohol Use: No History of Substance Use: reports: None - Smoking History Smoking history: Never smoked Have you smoked in the past 12 months: No Aproximately how many cigarettes per day: 0 - Social History ADL: Independent History of Recent Travel: No Home Medications - Allergies Allergies/Adverse Reactions: Allergies Allergy/AdvReac Type Severity Reaction Status Date / Time Penicillins Allergy Severe Hives Verified 09/03/18 16:31 aspirin AdvReac Intermediate Nausea,STOMACH Verified 09/03/18 16:31 PAIN - Home Medications Home Medications: Ambulatory Orders Furosemide [Lasix] 20 mg PO DAILY 08/09/18 Atorvastatin Ca [Lipitor] 10 mg PO HS tablet 08/13/18 Enalapril Maleate [Vasotec -] 5 mg PO DAILY tablet 08/13/18 Metoprolol Succinate [Toprol XL -] 50 mg PO DAILY tab.sr.24h 08/13/18 Insulin (Levemir) [Levemir Vial] 10 units SQ HS #0 units 10/05/18 Insulin (Novolog 70/30) [Novolog Mix 70/30 Vial -] 33 units SQ BIDAC #0 units Becaplermin [Regranex] 15 gm TP DAILY 30 Days #1 gel..gram. 11/14/18 Review of Systems - Review of Systems Constitutional: reports: Chills, Fever, Malaise. denies: No Symptoms, Diaphoresis, Lethargy, Loss of Appetite, Night Sweats, Unintentional Wgt. Loss, Weakness, Other Eyes: reports: No Symptoms. denies: Blind Spots, Blurred Vision, Double Vision , Eye Pain, Floaters, Photophobia, Recent Change in Vision, Other HENT: reports: No Symptoms. denies: Difficult Swallowing, Ear Discharge, Ear Pain, Epistaxis, Gingival Bleeding, Hearing Loss, Mouth Swelling, Nasal Congestion, Ocular Prosthesis, Throat Pain, Toothache, Ringing in Ears, Other Neck: reports: No Symptoms. denies: Decreased ROM, Lumps, Pain on Movement, Stiffness, Swollen Glands, Tenderness, Other Cardiovascular: reports: No Symptoms. denies: Chest Pain, Edema, Palpitations, Shortness of Breath, Other Respiratory: reports: Cough. denies: No Symptoms, Exercise Intolerance, Hemoptysis, Orthopnea, PND, Snoring, SOB, SOB on Exertion, Wheezing, Other Gastrointestinal: reports: Vomiting. denies: No Symptoms, Abdominal Pain, Bloating, Constipation, Diarrhea, Dysphagia, Indigestion, Melena, Nausea, Rectal Bleeding, Vomiting Blood, Other Genitourinary: reports: Dysuria. denies: No Symptoms, Burning, Discharge, Flank Pain, Frequency, Hematuria, Incontinence, Lesions, Menses, Pain, Testicular Mass, Testicular Pain, Testicular Swelling, Urgency, Vaginal Bleeding , Other Breasts: denies: No Symptoms Reported, See HPI, Breast Implants, Discharge from Nipple, Lumps, Pain, Skin Changes, Other Musculoskeletal: reports: No Symptoms. denies: Back Pain, Crepitus, Decreased ROM, Extremity Pain, Joint Pain, Joint Swelling, Muscle Pain, Muscle Cramps, Muscle Weakness, Other Integumentary: reports: No Symptoms. denies: Blister, Bruising, Change in Color , Eczema, Erythema, Incision, Lesions, Lump, Pallor, Pruritis, Rash, Wound, Other Neurological: reports: No Symptoms. denies: Change in LOC, Change in Speech, Confusion, Dizziness, Headache, Incoordination, Numbness, Parasthesia, Pre- Existing Deficit, Seizure, Syncope, Tremors, Unsteady Gait, Weakness, Other Endocrine: reports: No Symptoms. denies: Excessive Sweating, Flushing, Increased Hunger, Increased Thirst, Intolerance to Cold, Intolerance to Heat, Unexplained Weight Gain, Unexplained Weight Loss, Other Hematology/Lymphatic: reports: No Symptoms. denies: Easily Bruised, Excessive Bleeding, Swollen Glands, Other Psychiatric: reports: No Symptoms. denies: Altered Sleep Pattern, Anxiety, Depression, Hallucinations, Panic, Paranoia, Suicidal, Other Physical Exam Vital Signs: Vital Signs Temperature 98.5 F 03/03/19 05:03 Pulse Rate 75 03/03/19 05:03 Respiratory Rate 17 03/03/19 05:03 Blood Pressure 141/80 03/03/19 05:03 O2 Sat by Pulse Oximetry (%) 95 03/03/19 05:03 Constitutional: Yes: Mild Distress, Other (Ill appearing/uncomfortable) Eyes: Yes: Conjunctiva Clear, EOM Intact Neck: Yes: Supple, Trachea Midline Cardiovascular: Yes: Regular Rate and Rhythm Respiratory: Yes: CTA Bilaterally Gastrointestinal: Yes: Normal Bowel Sounds, Soft, Abdomen, Obese Renal/: Yes: WNL Musculoskeletal: Yes: WNL Extremities: Yes: WNL Edema: No Peripheral Pulses WNL: Yes Integumentary: Yes: WNL Neurological: Yes: Alert, Oriented Psychiatric: Yes: Alert Labs: CBC, BMP 03/03/19 06:20 03/03/19 06:20 Laboratory Tests 03/02/19 03/02/19 03/02/19 18:20 18:20 18:20 WBC RBC Hgb Hct MCV MCH MCHC RDW Plt Count MPV Absolute Neuts (auto) Neutrophils % Lymphocytes % Monocytes % Eosinophils % Basophils % Nucleated RBC % PT with INR INR PTT (Actin FS) Cancelled VBG pH POC VBG pCO2 POC VBG pO2 VBG HCO3 VBG O2 Sat (Maria C) VBG Base Excess Sodium Potassium Chloride Carbon Dioxide Anion Gap BUN Creatinine Est GFR (CKD-EPI)AfAm Est GFR (CKD-EPI)NonAf POC Glucometer Random Glucose Lactic Acid Calcium Total Bilirubin AST ALT Alkaline Phosphatase Troponin I 0.33 H Total Protein Albumin Urine Color Urine Appearance Urine pH Ur Specific [place] Urine Protein Urine Glucose (UA) Urine Ketones Urine Blood Urine Nitrite Urine Bilirubin Urine Urobilinogen Ur Leukocyte Esterase Urine WBC (Auto) Urine RBC (Auto) Urine Casts (Auto) U Epithel Cells (Auto) Urine Bacteria (Auto) Blood Type O POSITIVE Antibody Screen Negative 03/02/19 03/02/19 03/02/19 18:20 18:20 18:20 WBC 13.8 H RBC 3.51 L Hgb 9.7 L Hct 29.7 L MCV 84.6 MCH 27.6 MCHC 32.6 RDW 14.1 Plt Count 238 MPV 8.6 Absolute Neuts (auto) 11.4 H Neutrophils % 83.0 H D Lymphocytes % 4.9 L D Monocytes % 11.6 H Eosinophils % 0.0 D Basophils % 0.5 Nucleated RBC % 0 PT with INR INR PTT (Actin FS) VBG pH POC VBG pCO2 POC VBG pO2 VBG HCO3 VBG O2 Sat (Maria C) VBG Base Excess Sodium 131 L Potassium 3.6 Chloride 98 Carbon Dioxide 24 Anion Gap 10 BUN 20.3 H Creatinine 1.1 Est GFR (CKD-EPI)AfAm 54.91 Est GFR (CKD-EPI)NonAf 47.38 POC Glucometer Random Glucose 371 H Lactic Acid 1.1 Calcium 8.5 Total Bilirubin 1.4 H AST 41 H ALT 59 Alkaline Phosphatase 105 Troponin I Total Protein 7.0 Albumin 2.6 L Urine Color Urine Appearance Urine pH Ur Specific [place] Urine Protein Urine Glucose (UA) Urine Ketones Urine Blood Urine Nitrite Urine Bilirubin Urine Urobilinogen Ur Leukocyte Esterase Urine WBC (Auto) Urine RBC (Auto) Urine Casts (Auto) U Epithel Cells (Auto) Urine Bacteria (Auto) Blood Type Antibody Screen 03/02/19 03/02/19 03/02/19 18:20 18:30 18:50 WBC RBC Hgb Hct MCV MCH MCHC RDW Plt Count MPV Absolute Neuts (auto) Neutrophils % Lymphocytes % Monocytes % Eosinophils % Basophils % Nucleated RBC % PT with INR 15.30 H INR 1.29 H PTT (Actin FS) 29.9 VBG pH 7.49 H POC VBG pCO2 32.0 L POC VBG pO2 123 H VBG HCO3 24.2 VBG O2 Sat (Maria C) 99.1 H VBG Base Excess 1.6 Sodium Potassium Chloride Carbon Dioxide Anion Gap BUN Creatinine Est GFR (CKD-EPI)AfAm Est GFR (CKD-EPI)NonAf POC Glucometer Random Glucose Lactic Acid Calcium Total Bilirubin AST ALT Alkaline Phosphatase Troponin I Total Protein Albumin Urine Color Yellow Urine Appearance Cloudy Urine pH 5.5 Ur Specific [place] 1.024 Urine Protein 2+ H Urine Glucose (UA) 3+ H Urine Ketones 1+ H Urine Blood 3+ H Urine Nitrite Negative Urine Bilirubin Negative Urine Urobilinogen 1.0 Ur Leukocyte Esterase Trace Urine WBC (Auto) 28 Urine RBC (Auto) 40 Urine Casts (Auto) 2 U Epithel Cells (Auto) 1.0 Urine Bacteria (Auto) >9000 Blood Type Antibody Screen 03/03/19 03/03/19 03/03/19 00:11 06:17 06:20 WBC 13.5 H RBC 3.22 L Hgb 9.1 L Hct 27.1 L MCV 84.0 MCH 28.3 MCHC 33.7 RDW 14.4 Plt Count 243 MPV 8.5 Absolute Neuts (auto) Neutrophils % Lymphocytes % Monocytes % Eosinophils % Basophils % Nucleated RBC % PT with INR INR PTT (Actin FS) VBG pH POC VBG pCO2 POC VBG pO2 VBG HCO3 VBG O2 Sat (Maria C) VBG Base Excess Sodium Potassium Chloride Carbon Dioxide Anion Gap BUN Creatinine Est GFR (CKD-EPI)AfAm Est GFR (CKD-EPI)NonAf POC Glucometer 324 Random Glucose Lactic Acid Calcium Total Bilirubin AST ALT Alkaline Phosphatase Troponin I 0.48 H Total Protein Albumin Urine Color Urine Appearance Urine pH Ur Specific [place] Urine Protein Urine Glucose (UA) Urine Ketones Urine Blood Urine Nitrite Urine Bilirubin Urine Urobilinogen Ur Leukocyte Esterase Urine WBC (Auto) Urine RBC (Auto) Urine Casts (Auto) U Epithel Cells (Auto) Urine Bacteria (Auto) Blood Type Antibody Screen 03/03/19 03/03/19 06:20 09:07 WBC RBC Hgb Hct MCV MCH MCHC RDW Plt Count MPV Absolute Neuts (auto) Neutrophils % Lymphocytes % Monocytes % Eosinophils % Basophils % Nucleated RBC % PT with INR INR PTT (Actin FS) VBG pH POC VBG pCO2 POC VBG pO2 VBG HCO3 VBG O2 Sat (Maria C) VBG Base Excess Sodium 136 Potassium 3.6 Chloride 101 Carbon Dioxide 25 Anion Gap 10 BUN 18.2 H Creatinine 0.9 Est GFR (CKD-EPI)AfAm 69.99 Est GFR (CKD-EPI)NonAf 60.39 POC Glucometer Random Glucose 343 H Lactic Acid Calcium 8.5 Total Bilirubin AST ALT Alkaline Phosphatase Troponin I Total Protein Albumin Urine Color Urine Appearance Urine pH Ur Specific [place] Urine Protein Urine Glucose (UA) Urine Ketones Urine Blood Urine Nitrite Urine Bilirubin Urine Urobilinogen Ur Leukocyte Esterase Urine WBC (Auto) Urine RBC (Auto) Urine Casts (Auto) U Epithel Cells (Auto) Urine Bacteria (Auto) Blood Type O POSITIVE Antibody Screen Blood culture - organism pending (gram neg rods on stain) Urine culture pending Problem List - Problems (1) Influenza Code(s): J11.1 - FLU DUE TO UNIDENTIFIED INFLUENZA VIRUS W OTH RESP MANIFEST (2) Sepsis Code(s): A41.9 - SEPSIS, UNSPECIFIED ORGANISM Qualifiers: Sepsis type: sepsis due to unspecified organism Sepsis acute organ dysfunction status: unspecified Qualified Code(s): A41.9 - Sepsis, unspecified organism (3) HLD (hyperlipidemia) Code(s): E78.5 - HYPERLIPIDEMIA, UNSPECIFIED (4) HTN (hypertension) Code(s): I10 - ESSENTIAL (PRIMARY) HYPERTENSION Qualifiers: (5) Obesity Code(s): E66.9 - OBESITY, UNSPECIFIED (6) UTI (urinary tract infection) Code(s): N39.0 - URINARY TRACT INFECTION, SITE NOT SPECIFIED Qualifiers: Urinary tract infection type: acute cystitis Hematuria presence: without hematuria Qualified Code(s): N30.00 - Acute cystitis without hematuria Assessment/Plan 78 y.o. female presenting with fever/chills, cough, dysuria and generalized weakness. Diagnosed with Influenza 2 days prior to arrival and was started on Oseltamavir and Cipro at the time. Pt has been vomiting due to cough. Was treated for UTI a month ago as per pt but still has dysuria. Sepsis Gram negative Bacteremia UTI Influenza Fever Leukocytosis Hyperglycemia DM HTN HLD Hx of toe OM -- imaging and lab results reviewed, pt examined -- pt ill appearing, currently afebrile, without acute distress -- Pt with PCN allergy (hives)/Bacteremia , d/c Ceftriaxone, start Meropenem with monitoring for adverse reactions -- continue Tamiflu, droplet precautions -- F/u blood and urine culture results -- monitor wbc/temp trend -- close monitoring of vitals -- management of hyperglycemia Will follow Thank you
[2019-03-03] MEDS: MEROPENEM 1 GM in DEXTROSE 5%-WATER 100 ML IVPB SCH (13:22)
[2019-03-03] MEDS ORDERED: MEROPENEM 1 GM VIAL (RESTRICTED TO ID) IVPB ONE (23:51)
[2019-03-03] MEDS ORDERED: ATORVASTATIN CA 10 MG TABLET (FP) ONE (23:52)
[2019-03-03] MEDS ORDERED: INSULIN (LEVEMIR) 100 UNITS/ML UNITS SQ ONE (23:52)
[2019-03-03] MEDS ORDERED: HEPARIN NA (PORCINE) 5,000 UNITS/ML 1ML VIAL ONE (23:52)
[2019-03-04] MEDS: HEPARIN NA (PORCINE) 5,000 UNITS/ML 1ML VIAL SQ SCH ×3 (00:26→22:16)
[2019-03-04] MEDS: ATORVASTATIN CA 10 MG TABLET (FP) PO SCH ×2 (00:27→22:16)
[2019-03-04] MEDS: MEROPENEM 1 GM in DEXTROSE 5%-WATER 100 ML IVPB SCH ×3 (00:27→22:14)
[2019-03-04] MEDS: OSELTAMIVIR PHOSPHATE 30 MG CAPSULE PO SCH ×3 (01:54→22:16)
[2019-03-04] MEDS: INSULIN (NOVOLOG) ASPART 100 UNITS/ML 10ML VIAL SQ SCH (08:00)
[2019-03-04 08:05] LABS: BASO % 0.6 % (0-2.0); EOS % 1.6 % (0-4.5); HEMATOCRIT 27.1 % (32.4-45.2); HEMOGLOBIN 8.8 GM/dL (10.7-15.3); LYMPH % 10.9 % (8-40); MCH 27.6 pg (25.7-33.7); MCHC 32.3 g/dl (32.0-36.0); MEAN CELL VOLUME 85.5 fl (80-96); MEAN PLT VOLUME 9.2 fl (7.5-11.1); MONO % 11.5 % (3.8-10.2); NEUT % 75.4 % (42.8-82.8); PLATELET COUNT 258 K/MM3 (134-434); RBC 3.17 M/mm3 (3.60-5.2); RDW 14.2 % (11.6-15.6); WHITE BLOOD COUNT 12.9 K/mm3 (4.0-10.0)
[2019-03-04 08:16] LABS: ALBUMIN 2.2 g/dl (3.4-5.0); BILIRUBIN,TOTAL 0.8 mg/dL (0.2-1); CALCIUM 8.2 mg/dL (8.5-10.1); TOT PROT 6.4 g/dl (6.4-8.2)
[2019-03-04] MEDS ORDERED: INSULIN (NOVOLOG) ASPART 100 UNITS/ML 10ML VIAL SQ ONE (08:30)
[2019-03-04] MEDS ORDERED: INSULIN REGULAR HUMAN 100 UNITS/ML *VIAL IVPUSH ONE (08:41)
--- NOTE | 2019-03-04 11:43 | PN ---
Progress Note (short form) - Note Progress Note: s: no cp sob palps dizzy Current Medications Generic Name Dose Route Start Last Admin Trade Name Freq PRN Reason Stop Dose Admin Acetaminophen 650 mg 03/02/19 21:03 Tylenol - PO Q4H PRN FEVER Atorvastatin Calcium 10 mg 03/02/19 22:00 03/04/19 00:27 Lipitor - PO 10 mg HS MANUELA Administration Enalapril Maleate 5 mg 03/03/19 10:00 03/03/19 11:11 Vasotec - PO 5 mg DAILY MANUELA Administration Heparin Sodium (Porcine) 5,000 unit 03/02/19 22:00 03/04/19 00:26 Heparin - SQ 5,000 unit BID MANUELA Administration Potassium Chloride/Dextrose/Sod Cl 20 meq in 1,000 mls @ 83 mls/hr 03/03/19 11 :00 03/03/19 11:11 D5-1/2ns+20 Meq Kcl - IV 83 mls/hr ASDIR MANUELA Administration Meropenem 1 gm/ Dextrose 100 mls @ 0 mls/hr 03/03/19 12:45 03/04/19 00:27 IVPB 100 mls/hr BID MANUELA Administration As Directed Insulin Aspart 1 vial 03/04/19 09:34 [facility] Protocol Insulin Detemir 15 units 03/04/19 10:00 Levemir Vial SQ BID@0700,2200 MANUELA Metoprolol Succinate 50 mg 03/03/19 10:00 03/03/19 11:10 Toprol Xl - PO 50 mg DAILY MANUELA Administration Non-Formulary Medication 15 gm 03/03/19 10:00 Becaplermin [Regranex] TP DAILY MANUELA Oseltamivir Phosphate 30 mg 03/02/19 22:00 03/04/19 01:54 Tamiflu - PO 03/07/19 21:59 30 mg BID MANUELA Administration Vital Signs Period Temp Pulse Resp BP Sys/Patel Pulse Ox Last 24 Hr 98.2 F 81 19-20 131/46 2 Constitutional: Yes: No Distress, Calm Eyes: Yes: Conjunctiva Clear Neck: Yes: Supple, Trachea Midline Respiratory: Yes: Regular, CTA Bilaterally Gastrointestinal: Yes: Normal Bowel Sounds, Soft Cardiovascular: Yes: Regular Rate and Rhythm JVD: No Edema: No Integumentary: No: Jaundice Neurological: Yes: Alert, Oriented Psychiatric: No: Agitated CBC, BMP 03/04/19 06:18 03/04/19 06:18 Assessment/Plan EKG: sinus tach, no ischemic changes CXR: no acute process elevated troponin - intermediate elevation, flat trend. likely demand in setting of infection, not acs. - EKG no ischemic changes - echo ordered, if benign then no further cardiac testing needed at this time and can dc tele. flu, UTI - manage per ID HTN - cont home meds HLD - cont statin
[2019-03-04] MEDS: D5-1/2NS+20 MEQ KCL - 20 MEQ/1,000 ML INFUS.BAG IV SCH (12:38)
[2019-03-04] MEDS: INSULIN (LEVEMIR) 100 UNITS/ML UNITS SQ SCH ×2 (12:39→22:17)
[2019-03-04] MEDS: ENALAPRIL MALEATE 5 MG TABLET (FP) PO SCH (12:40)
[2019-03-04] MEDS ORDERED: INSULIN (NOVOLOG) ASPART 100 UNITS/ML 10ML VIAL ONE (12:48)
[2019-03-04] MEDS ORDERED: INSULIN (LEVEMIR) 100 UNITS/ML UNITS SQ ONE (12:48)
[2019-03-04] MEDS ORDERED: OSELTAMIVIR PHOSPHATE 75 MG CAPSULE ONE (12:52)
[2019-03-04] MEDS ORDERED: ENALAPRIL MALEATE 5 MG TABLET (FP) ONE (12:52)
--- NOTE | 2019-03-04 13:12 | PN ---
Progress Note, Physician History of Present Illness: calm slightly better - Current Medication List Current Medications: Active Medications Acetaminophen (Tylenol -) 650 mg PO Q4H PRN PRN Reason: FEVER Atorvastatin Calcium (Lipitor -) 10 mg PO HS [facility] Last Admin: 03/04/19 00:27 Dose: 10 mg Enalapril Maleate (Vasotec -) 5 mg PO DAILY [facility] Last Admin: 03/04/19 12:40 Dose: 5 mg Heparin Sodium (Porcine) (Heparin -) 5,000 unit SQ BID [facility] Last Admin: 03/04/19 12:39 Dose: 5,000 unit Potassium Chloride/Dextrose/Sod Cl (D5-1/2ns+20 Meq Kcl -) 20 meq in 1,000 mls @ 83 mls/hr IV ASDIR [facility] Last Admin: 03/04/19 12:38 Dose: 83 mls/hr Meropenem 1 gm/ Dextrose 100 mls @ 0 mls/hr IVPB BID [facility] Last Admin: 03/04/19 13:09 Dose: Not Given Insulin Aspart (Novolog Vial Sliding Scale -) [facility] Insulin Detemir (Levemir Vial) 15 units SQ BID@0700,2200 [facility] Last Admin: 03/04/19 12:39 Dose: 15 units Metoprolol Succinate (Toprol Xl -) 50 mg PO DAILY [facility] Last Admin: 03/04/19 12:40 Dose: 50 mg Non-Formulary Medication (Becaplermin [Regranex]) 15 gm TP DAILY [facility] Oseltamivir Phosphate (Tamiflu -) 30 mg PO BID [facility] Stop: 03/07/19 21:59 Last Admin: 03/04/19 12:40 Dose: 30 mg - Objective Vital Signs: Vital Signs Temperature 98.2 F 03/03/19 17:18 Pulse Rate 81 03/03/19 17:18 Respiratory Rate 20 03/03/19 21:00 Blood Pressure 131/46 L 03/03/19 17:18 O2 Sat by Pulse Oximetry (%) 2 L 03/03/19 21:00 Constitutional: Yes: No Distress, Calm Cardiovascular: Yes: S1, S2 Respiratory: Yes: Regular, CTA Bilaterally Gastrointestinal: Yes: Normal Bowel Sounds, Soft Extremities: Yes: WNL Neurological: Yes: Alert, Other Psychiatric: Yes: Other Labs: CBC, BMP 03/04/19 06:18 03/04/19 06:18 INR, PTT INR 1.29 (0.83-1.09) H 03/02/19 18:20 Assessment/Plan Problem List - Problems (1) E. coli sepsis Code(s): A41.51 - SEPSIS DUE TO ESCHERICHIA COLI [E. COLI] (2) Influenza Code(s): J11.1 - FLU DUE TO UNIDENTIFIED INFLUENZA VIRUS W OTH RESP MANIFEST (3) Sepsis Code(s): A41.9 - SEPSIS, UNSPECIFIED ORGANISM Qualifiers: Sepsis type: sepsis due to unspecified organism Sepsis acute organ dysfunction status: unspecified Qualified Code(s): A41.9 - Sepsis, unspecified organism (4) Troponin level elevated Code(s): R79.89 - OTHER SPECIFIED ABNORMAL FINDINGS OF BLOOD CHEMISTRY (5) HLD (hyperlipidemia) Code(s): E78.5 - HYPERLIPIDEMIA, UNSPECIFIED (6) HTN (hypertension) Code(s): I10 - ESSENTIAL (PRIMARY) HYPERTENSION Qualifiers: (7) UTI (urinary tract infection) Code(s): N39.0 - URINARY TRACT INFECTION, SITE NOT SPECIFIED Qualifiers: Urinary tract infection type: acute cystitis Hematuria presence: without hematuria Qualified Code(s): N30.00 - Acute cystitis without hematuria gm negative bacteremia plan continue current mgmt repeat blood cx awaited abx monitor status rest as per the team
--- NOTE | 2019-03-04 13:56 | PN ---
Progress Note (short form) - Note Progress Note: PT SEEN/ EXAMINED CHART REVIEWED FEELS BETTER BGM RUNNING HIGH-- PT ALSO GETTING D5. +VE CULTURES IN ALL BOTTLES Vital Signs Temp 98.2 F 03/03/19 17:18 Pulse 81 03/03/19 17:18 Resp 20 03/03/19 21:00 BP 131/46 L 03/03/19 17:18 Pulse Ox 2 L 03/03/19 21:00 Intake & Output 03/03/19 03/04/19 03/04/19 23:59 11:59 23:59 Intake Total 1925 581 Balance 1925 581 Intake: IV 1245 581 D5-1/2NS+20 MEQ KCL - 20 1245 581 meq In 1,000 ml @ 83 mls/ hr IV ASDIR MANUELA Rx#: [id number] IVPB 200 Oral 480 Other: Voiding Method Toilet # Unmeasured Voids Void 2 1 Bowel Movement No No Active Medications Acetaminophen (Tylenol -) 650 mg PO Q4H PRN PRN Reason: FEVER Atorvastatin Calcium (Lipitor -) 10 mg PO HS [facility] Last Admin: 03/04/19 00:27 Dose: 10 mg Enalapril Maleate (Vasotec -) 5 mg PO DAILY [facility] Last Admin: 03/04/19 12:40 Dose: 5 mg Heparin Sodium (Porcine) (Heparin -) 5,000 unit SQ BID [facility] Last Admin: 03/04/19 12:39 Dose: 5,000 unit Meropenem 1 gm/ Dextrose 100 mls @ 0 mls/hr IVPB BID [facility] Last Admin: 03/04/19 13:09 Dose: Not Given Insulin Aspart (Novolog Vial Sliding Scale -) [address] [facility] Protocol Insulin Detemir (Levemir Vial) 15 units SQ BID@0700,2200 [facility] Last Admin: 03/04/19 12:39 Dose: 15 units Metoprolol Succinate (Toprol Xl -) 50 mg PO DAILY [facility] Last Admin: 03/04/19 12:40 Dose: 50 mg Non-Formulary Medication (Becaplermin [Regranex]) 15 gm TP DAILY [facility] Oseltamivir Phosphate (Tamiflu -) 30 mg PO BID [facility] Stop: 03/07/19 21:59 Last Admin: 03/04/19 12:40 Dose: 30 mg CBC, BMP 03/04/19 06:18 10/14/19 06:18 Abnormal Lab Results 03/04/19 03/04/19 03/04/19 06:18 06:18 06:18 WBC 12.9 H RBC 3.17 L Hgb 8.8 L Hct 27.1 L Absolute Neuts (auto) 9.7 H Monocytes % 11.5 H Sodium 128 L Chloride 95 L Anion Gap 6 L Random Glucose 401 H* Hemoglobin A1c % 9.6 H Calcium 8.2 L Albumin 2.2 L Microbiology 03/02/19 18:20 Blood Culture - Preliminary Blood - Peripheral Venous Lactose Fermenting Neg Bacilli 03/02/19 18:20 Blood Culture - Preliminary Blood - Peripheral Venous Lactose Fermenting Neg Bacilli 03/02/19 18:50 Urine Culture - Preliminary Urine - Urine Clean Catch Lactose Fermenting Neg Bacilli Physical Constitutional: Yes: No Distress Eyes: Yes: Conjunctiva Clear HENT: Yes: wnl Neck: Yes: Supple Cardiovascular: Yes: Regular Rate and Rhythm Respiratory: Yes: CTA Bilaterally Gastrointestinal: Yes: Soft Edema: No Neurological: Yes: Alert Psychiatric: Yes: Alert Problem List - Problems (1) Troponin level elevated Code(s): R79.89 - OTHER SPECIFIED ABNORMAL FINDINGS OF BLOOD CHEMISTRY (2) Influenza Code(s): J11.1 - FLU DUE TO UNIDENTIFIED INFLUENZA VIRUS W OTH RESP MANIFEST (3) HTN (hypertension) Code(s): I10 - ESSENTIAL (PRIMARY) HYPERTENSION Qualifiers: (4) UTI (urinary tract infection) Code(s): N39.0 - URINARY TRACT INFECTION, SITE NOT SPECIFIED Qualifiers: Urinary tract infection type: acute cystitis Hematuria presence: without hematuria Qualified Code(s): N30.00 - Acute cystitis without hematuria Assessment/Plan Continue abx contact isolation tylenol/ motrin for pain +ve troponins-- likely demand ischemia cardiology consult appreciated D/C FLUIDS HBA1C ALSO >9 LEVEIMIR INCREASED ALSO MONITOR ABX PER I/D WILL FOLLOW Problem List - Problems (1) Troponin level elevated Code(s): R79.89 - OTHER SPECIFIED ABNORMAL FINDINGS OF BLOOD CHEMISTRY (2) Influenza Code(s): J11.1 - FLU DUE TO UNIDENTIFIED INFLUENZA VIRUS W OTH RESP MANIFEST (3) HTN (hypertension) Code(s): I10 - ESSENTIAL (PRIMARY) HYPERTENSION Qualifiers: (4) UTI (urinary tract infection) Code(s): N39.0 - URINARY TRACT INFECTION, SITE NOT SPECIFIED Qualifiers: Urinary tract infection type: acute cystitis Hematuria presence: without hematuria Qualified Code(s): N30.00 - Acute cystitis without hematuria
[2019-03-04] MEDS ORDERED: ACETAMINOPHEN 325 MG TABLET (FP) PO PRN (14:34)
[2019-03-04 15:17] VITALS: BMI 27.9
[2019-03-04] MEDS ORDERED: PT OWN MED DRAWER 7, Y5N ONE ×2 (15:23→20:54)
[2019-03-04] MEDS: INSULIN SLIDING SCALE (NOVOLOG) 1 VIAL SQ SCH (16:55)
[2019-03-04] MEDS ORDERED: DEXTROSE 5%-WATER 100 ML IVPB ONE (20:53)
[2019-03-04] MEDS ORDERED: MEROPENEM 1 GM VIAL (RESTRICTED TO ID) IVPB ONE (20:53)
[2019-03-05] MEDS: INSULIN SLIDING SCALE (NOVOLOG) 1 VIAL SQ SCH ×2 (06:06→17:23)
[2019-03-05] MEDS: INSULIN (LEVEMIR) 100 UNITS/ML UNITS SQ SCH ×2 (06:07→21:35)
[2019-03-05] MEDS ORDERED: DEXTROSE 5%-WATER 100 ML IVPB ONE ×2 (08:07→21:01)
[2019-03-05] MEDS ORDERED: MEROPENEM 1 GM VIAL (RESTRICTED TO ID) IVPB ONE ×2 (08:07→21:00)
[2019-03-05] MEDS ORDERED: PATIENT'S OWN MEDICATION (NON-FORMULARY) (Becaplermin [Regranex] 15 GM) TP SCH (10:00)
[2019-03-05] MEDS: OSELTAMIVIR PHOSPHATE 30 MG CAPSULE PO SCH ×2 (10:17→21:35)
[2019-03-05] MEDS: HEPARIN NA (PORCINE) 5,000 UNITS/ML 1ML VIAL SQ SCH ×2 (10:17→21:35)
[2019-03-05] MEDS: ENALAPRIL MALEATE 5 MG TABLET (FP) PO SCH (10:17)
[2019-03-05] MEDS: MEROPENEM 1 GM in DEXTROSE 5%-WATER 100 ML IVPB SCH ×2 (10:18→21:35)
--- NOTE | 2019-03-05 11:33 | PN ---
Progress Note (short form) - Note Progress Note: s: no cp sob palps dizzy Current Medications Acetaminophen (Tylenol -) 650 mg PO Q4H PRN PRN Reason: FEVER Atorvastatin Calcium (Lipitor -) 10 mg PO HS [facility] Last Admin: 03/04/19 22:16 Dose: 10 mg Enalapril Maleate (Vasotec -) 5 mg PO DAILY [facility] Last Admin: 03/05/19 10:17 Dose: 5 mg Heparin Sodium (Porcine) (Heparin -) 5,000 unit SQ BID [facility] Last Admin: 03/05/19 10:17 Dose: 5,000 unit Meropenem 1 gm/ Dextrose 100 mls @ 0 mls/hr IVPB BID [facility] Last Admin: 03/05/19 10:18 Dose: 100 mls/hr Insulin Aspart (Novolog Vial Sliding Scale -) [facility] Protocol Last Admin: 03/05/19 06:06 Dose: 6 units Insulin Detemir (Levemir Vial) 15 units SQ BID@0700,2200 [facility] Last Admin: 03/05/19 06:07 Dose: 15 units Metoprolol Succinate (Toprol Xl -) 50 mg PO DAILY [facility] Last Admin: 03/05/19 10:18 Dose: 50 mg Non-Formulary Medication (Becaplermin [Regranex]) 15 gm TP DAILY [facility] Oseltamivir Phosphate (Tamiflu -) 30 mg PO BID [facility] Stop: 03/07/19 21:59 Last Admin: 03/05/19 10:17 Dose: 30 mg Vital Signs Period Temp Pulse Resp BP Sys/Patel Pulse Ox Last 24 Hr 98.3 F-99.5 F 71-75 18-18 112-134/44-56 97-100 Constitutional: Yes: No Distress, Calm Eyes: Yes: Conjunctiva Clear Neck: Yes: Supple, Trachea Midline Respiratory: Yes: Regular, CTA Bilaterally Gastrointestinal: Yes: Normal Bowel Sounds, Soft Cardiovascular: Yes: Regular Rate and Rhythm JVD: No Edema: No Integumentary: No: Jaundice Neurological: Yes: Alert, Oriented Psychiatric: No: Agitated Assessment/Plan EKG: sinus tach, no ischemic changes CXR: no acute process tele: sinus, PVCs elevated troponin - intermediate elevation, flat trend. likely demand in setting of infection, not acs. - EKG no ischemic changes - echo pending, if benign then no further cardiac testing needed at this time and can dc tele. flu, UTI - manage per ID HTN - cont home meds HLD - cont statin
--- NOTE | 2019-03-05 11:39 | PN ---
Progress Note (short form) - Note Progress Note: Events noted Pt is better -- feeling better ate her breakfast today She just had echo done no chest pain occasional coughing+ light yellow sputum Vital Signs - 24 hr 03/04/19 03/04/19 03/04/19 15:08 18:00 21:00 Temperature 99.5 F Pulse Rate 75 Respiratory 18 Rate Blood Pressure 134/56 L O2 Sat by Pulse 100 97 Oximetry (%) 03/04/19 03/05/19 03/05/19 22:00 02:00 06:00 Temperature 98.6 F 98.3 F 98.5 F Pulse Rate 74 71 75 Respiratory 18 18 18 Rate Blood Pressure 126/56 L 112/44 L 118/45 L O2 Sat by Pulse Oximetry (%) Current Medications Generic Name Dose Route Start Last Admin Trade Name Freq PRN Reason Stop Dose Admin Acetaminophen 650 mg 03/04/19 14:34 Tylenol - PO Q4H PRN FEVER Atorvastatin Calcium 10 mg 03/04/19 22:00 03/04/19 22:16 Lipitor - PO 10 mg HS MANUELA Administration Enalapril Maleate 5 mg 03/05/19 10:00 03/05/19 10:17 Vasotec - PO 5 mg DAILY MANUELA Administration Heparin Sodium (Porcine) 5,000 unit 03/04/19 22:00 03/05/19 10:17 Heparin - SQ 5,000 unit BID MANUELA Administration Meropenem 1 gm/ Dextrose 100 mls @ 0 mls/hr 03/03/19 12:45 03/05/19 10:18 IVPB 100 mls/hr BID MANUELA Administration As Directed Insulin Aspart 1 vial 03/04/19 09:34 03/05/19 06:06 Novolog Vial Sliding Scale - SQ 6 units BIDAC MANUELA Administration Protocol Insulin Detemir 15 units 03/04/19 10:00 03/05/19 06:07 Levemir Vial SQ 15 units BID@0700,2200 [facility]UELA Administration Metoprolol Succinate 50 mg 03/05/19 10:00 03/05/19 10:18 Toprol Xl - PO 50 mg DAILY [facility]UELA Administration Non-Formulary Medication 15 gm 03/05/19 10:00 Becaplermin [Regranex] TP DAILY [facility]UELA Oseltamivir Phosphate 30 mg 03/04/19 22:00 03/05/19 10:17 Tamiflu - PO 03/07/19 21:59 30 mg BID [facility]UELA Administration Laboratory Results - last 24 hr 03/04/19 03/04/19 03/04/19 12:07 16:54 21:46 POC Glucometer 453 328 298 03/05/19 06:05 POC Glucometer 274 S1 S2 RRR Lungs no ronchi+ Abd- soft, tender suprapubic No edema PLAN Cultures positive for Ecoli-- Urine -- Ecoli On Meropenum clinically better increase Levemir off iv fluids OOB encourage po fluids droplet and contact isolation nebs as needed Problem List - Problems (1) E. coli sepsis Code(s): A41.51 - SEPSIS DUE TO ESCHERICHIA COLI [E. COLI] (2) Influenza Code(s): J11.1 - FLU DUE TO UNIDENTIFIED INFLUENZA VIRUS W OTH RESP MANIFEST (3) Sepsis Code(s): A41.9 - SEPSIS, UNSPECIFIED ORGANISM Qualifiers: Sepsis type: sepsis due to unspecified organism Sepsis acute organ dysfunction status: unspecified Qualified Code(s): A41.9 - Sepsis, unspecified organism (4) Troponin level elevated Code(s): R79.89 - OTHER SPECIFIED ABNORMAL FINDINGS OF BLOOD CHEMISTRY (5) HLD (hyperlipidemia) Code(s): E78.5 - HYPERLIPIDEMIA, UNSPECIFIED (6) HTN (hypertension) Code(s): I10 - ESSENTIAL (PRIMARY) HYPERTENSION Qualifiers: (7) UTI (urinary tract infection) Code(s): N39.0 - URINARY TRACT INFECTION, SITE NOT SPECIFIED Qualifiers: Urinary tract infection type: acute cystitis Hematuria presence: without hematuria Qualified Code(s): N30.00 - Acute cystitis without hematuria
--- NOTE | 2019-03-05 11:46 | ECHO ---
Version: 1 Name: ALYCE HANCOCK Exam: Adult Echocardiogram Study Date: 03/05/2019, 10:13 AM Age: 78 Years MMode/2D Measurements & Calculations IVSd: 1.15 cm LVIDs: 3.1 cm LVIDd: 4.5 cm LVPWd: 0.93 cm LAV (MOD-bp): 64.0 ml LVOT diam: 2.03 cm Ao root diam: 2.6 cm LA dimension: 3.7 cm Doppler Measurements & Calculations MV E max nathanael: 103.7 cm/sec Med E/e': 20.5 MV A max nathanael: 69.6 cm/sec Med Peak E' Nathanael: 5.0 cm/sec MV E/A: 1.49 Lat E/e': 21.5 Lat Peak E' Nathanael: 4.8 cm/sec MR max P.8 mmHg Ao max P.7 mmHg XAVI(I,D): 1.70 cm Ao mean P.0 mmHg LV V1 mean: 85.6 cm/sec Ao V2 max: 216.1 cm/sec LV V1 mean P.5 mmHg PI end-d nathanael: 59.9 cm/sec TR max nathanael: 314.4 cm/sec TR max P.6 mmHg Left Ventricle The left ventricular size, thickness and function are normal. Ejection Fraction = 65%. The transmitr al spectral Doppler flow pattern is suggestive of impaired LV relaxation. Right Ventricle The right ventricle is normal in size and function. Atria The left atrial size is normal. The right atrium is mildly dilated. Mitral Valve There is mild mitral annular calcification. There is mild mitral regurgitation. Tricuspid Valve The tricuspid valve is normal. There is moderate tricuspid regurgitation. Aortic Valve There is mild aortic sclerosis.;. Pulmonic Valve The pulmonic valve is not well seen, but is grossly normal. Mild pulmonic valvular regurgitation. Great Vessels The aortic root is normal size. Normal aortic arch, descending and ascending aorta. Pericardium/Pleura There is no pericardial effusion. Summary Statements The left ventricular size, thickness and function are normal Ejection Fraction = 65%. The transmitral spectral Doppler flow pattern is suggestive of impaired LV relaxation. The right ventricle is normal in size and function. The left atrial size is normal. The right atrium is mildly dilated. There is mild mitral annular calcification. There is mild mitral regurgitation. The tricuspid valve is normal. There is moderate tricuspid regurgitation. There is mild aortic sclerosis.; The pulmonic valve is not well seen, but is grossly normal. Mild pulmonic valvular regurgitation. The aortic root is normal size. Normal aortic arch, descending and ascending aorta There is no pericardial effusion. Josef Torres 03/05/2019, 10:46 AM Ordering Physician: POLLY MATTA Referring Physician: DANIEL SUNSHINE Performed By: Danelle Thomson
--- NOTE | 2019-03-05 12:37 | PN ---
Progress Note, Physician History of Present Illness: stable starting to feel better - Current Medication List Current Medications: Active Medications Acetaminophen (Tylenol -) 650 mg PO Q4H PRN PRN Reason: FEVER Atorvastatin Calcium (Lipitor -) 10 mg PO HS [facility] Last Admin: 03/04/19 22:16 Dose: 10 mg Enalapril Maleate (Vasotec -) 5 mg PO DAILY [facility] Last Admin: 03/05/19 10:17 Dose: 5 mg Heparin Sodium (Porcine) (Heparin -) 5,000 unit SQ BID [facility] Last Admin: 03/05/19 10:17 Dose: 5,000 unit Meropenem 1 gm/ Dextrose 100 mls @ 0 mls/hr IVPB BID [facility] Last Admin: 03/05/19 10:18 Dose: 100 mls/hr Insulin Aspart (Novolog Vial Sliding Scale -[facility] Protocol Last Admin: 03/05/19 06:06 Dose: 6 units Insulin Detemir (Levemir Vial) 18 units SQ BID@0700,2200 [facility] Metoprolol Succinate (Toprol Xl -) 50 mg PO DAILY [facility] Last Admin: 03/05/19 10:18 Dose: 50 mg Non-Formulary Medication (Becaplermin [Regranex]) 15 gm TP DAILY [facility] Oseltamivir Phosphate (Tamiflu -) 30 mg PO BID [facility] Stop: 03/07/19 21:59 Last Admin: 03/05/19 10:17 Dose: 30 mg - Objective Vital Signs: Vital Signs Temperature 97.8 F 03/05/19 10:00 Pulse Rate 75 03/05/19 10:00 Respiratory Rate 20 03/05/19 10:00 Blood Pressure 134/54 L 03/05/19 10:00 O2 Sat by Pulse Oximetry (%) 94 L 03/05/19 09:00 Constitutional: Yes: No Distress, Calm Cardiovascular: Yes: S1, S2 Respiratory: Yes: Regular, CTA Bilaterally Gastrointestinal: Yes: Normal Bowel Sounds, Soft Musculoskeletal: Yes: WNL Extremities: Yes: WNL Neurological: Yes: Alert, Oriented Psychiatric: Yes: Alert, Oriented Labs: CBC, BMP 03/04/19 06:18 03/04/19 06:18 INR, PTT INR 1.29 (0.83-1.09) H 03/02/19 18:20 Assessment/Plan Problem List - Problems (1) E. coli sepsis Code(s): A41.51 - SEPSIS DUE TO ESCHERICHIA COLI [E. COLI] (2) Influenza Code(s): J11.1 - FLU DUE TO UNIDENTIFIED INFLUENZA VIRUS W OTH RESP MANIFEST (3) Sepsis Code(s): A41.9 - SEPSIS, UNSPECIFIED ORGANISM Qualifiers: Sepsis type: sepsis due to unspecified organism Sepsis acute organ dysfunction status: unspecified Qualified Code(s): A41.9 - Sepsis, unspecified organism (4) Troponin level elevated Code(s): R79.89 - OTHER SPECIFIED ABNORMAL FINDINGS OF BLOOD CHEMISTRY (5) HLD (hyperlipidemia) Code(s): E78.5 - HYPERLIPIDEMIA, UNSPECIFIED (6) HTN (hypertension) Code(s): I10 - ESSENTIAL (PRIMARY) HYPERTENSION Qualifiers: (7) UTI (urinary tract infection) Code(s): N39.0 - URINARY TRACT INFECTION, SITE NOT SPECIFIED Qualifiers: Urinary tract infection type: acute cystitis Hematuria presence: without hematuria Qualified Code(s): N30.00 - Acute cystitis without hematuria gm negative bacteremia plan continue abx await for repeat blood cx await for sensitivities rest as per the team
[2019-03-05] MEDS ORDERED: ALBUTEROL SO4 2.5/IPRATROPIUM 0.5 INH SOL 3 ML VIAL.NEB. NEB PRN (13:15)
[2019-03-05] MEDS: PATIENT'S OWN MEDICATION (NON-FORMULARY) (Becaplermin [Regranex] 15 GM) TP SCH (19:05)
[2019-03-05] MEDS: INSULIN (NOVOLOG) ASPART 100 UNITS/ML 10ML VIAL SQ SCH (19:05)
[2019-03-05] MEDS ORDERED: PT OWN MED DRAWER 7, Y5N ONE (21:01)
[2019-03-05] MEDS: ATORVASTATIN CA 10 MG TABLET (FP) PO SCH (21:35)
[2019-03-05] MEDS: guaiFENesin 200 MG/10 ML 10 ML UNIT-DOSE CUPS PO PRN (21:58)
[2019-03-06] MEDS: INSULIN (LEVEMIR) 100 UNITS/ML UNITS SQ SCH ×2 (06:10→21:11)
[2019-03-06] MEDS: INSULIN SLIDING SCALE (NOVOLOG) 1 VIAL SQ SCH ×2 (06:11→17:04)
[2019-03-06] MEDS ORDERED: DEXTROSE 5%-WATER 100 ML IVPB ONE ×2 (08:54→21:00)
[2019-03-06] MEDS ORDERED: MEROPENEM 1 GM VIAL (RESTRICTED TO ID) IVPB ONE ×2 (08:54→21:00)
[2019-03-06] MEDS ORDERED: PT OWN MED DRAWER 7, Y5N ONE (08:55)
[2019-03-06] MEDS: MEROPENEM 1 GM in DEXTROSE 5%-WATER 100 ML IVPB SCH ×2 (09:06→21:11)
[2019-03-06] MEDS: guaiFENesin 200 MG/10 ML 10 ML UNIT-DOSE CUPS PO PRN ×2 (09:08→21:10)
[2019-03-06] MEDS: HEPARIN NA (PORCINE) 5,000 UNITS/ML 1ML VIAL SQ SCH ×2 (09:08→21:10)
[2019-03-06] MEDS: OSELTAMIVIR PHOSPHATE 30 MG CAPSULE PO SCH ×2 (09:09→21:12)
[2019-03-06] MEDS: ENALAPRIL MALEATE 5 MG TABLET (FP) PO SCH (09:10)
--- NOTE | 2019-03-06 11:53 | PN ---
Progress Note (short form) - Note Progress Note: s: no cp sob palps dizzy Current Medications Acetaminophen (Tylenol -) 650 mg PO Q4H PRN PRN Reason: FEVER Albuterol/Ipratropium (Duoneb -) 1 amp NEB Q6H PRN PRN Reason: SHORTNESS OF BREATH Atorvastatin Calcium (Lipitor -) 10 mg PO HS [facility] Last Admin: 03/05/19 21:35 Dose: 10 mg Enalapril Maleate (Vasotec -) 5 mg PO DAILY [facility] Last Admin: 03/06/19 09:10 Dose: 5 mg Guaifenesin (Robitussin -) 10 ml PO Q6H PRN PRN Reason: COUGH Last Admin: 03/06/19 09:08 Dose: 10 ml Heparin Sodium (Porcine) (Heparin -) 5,000 unit SQ BID [facility] Last Admin: 03/06/19 09:08 Dose: 5,000 unit Meropenem 1 gm/ Dextrose 100 mls @ 0 mls/hr IVPB BID [facility] Last Admin: 03/06/19 09:06 Dose: 100 mls/hr Insulin Aspart ([facility] Protocol Last Admin: 03/06/19 06:11 Dose: 6 units Insulin Detemir (Levemir Vial) 18 units SQ BID@0700,2200 [facility] Last Admin: 03/06/19 06:10 Dose: 18 units Metoprolol Succinate (Toprol Xl -) 50 mg PO DAILY [facility] Last Admin: 03/06/19 09:08 Dose: 50 mg Non-Formulary Medication (Becaplermin [Regranex]) 15 gm TP DAILY [facility] Oseltamivir Phosphate (Tamiflu -) 30 mg PO BID [facility] Stop: 03/07/19 21:59 Last Admin: 03/06/19 09:09 Dose: 30 mg Vital Signs Period Temp Pulse Resp BP Sys/Patel Pulse Ox Last 24 Hr 97.8 F-98.9 F 75-80 18-20 132-149/57-78 95 Constitutional: Yes: No Distress, Calm Eyes: Yes: Conjunctiva Clear Neck: Yes: Supple, Trachea Midline Respiratory: Yes: Regular, CTA Bilaterally Gastrointestinal: Yes: Normal Bowel Sounds, Soft Cardiovascular: Yes: Regular Rate and Rhythm JVD: No Edema: No Integumentary: No: Jaundice Neurological: Yes: Alert, Oriented Psychiatric: No: Agitated Assessment/Plan EKG: sinus tach, no ischemic changes echo 02/2019 nl LV function, impaired relaxation, nl RV, RA mildly dilated, mod MR, mod TR CXR: no acute process tele: sinus, PVCs elevated troponin - intermediate elevation, flat trend. likely demand in setting of infection, not acs. - EKG no ischemic changes -echo unremarkable, no further cardiac testing - dc tele flu, UTI - manage per ID HTN - cont home meds HLD - cont statin
[2019-03-06 12:33] LABS: BASO % 0.4 % (0-2.0); EOS % 4.4 % (0-4.5); HEMATOCRIT 26.9 % (32.4-45.2); HEMOGLOBIN 9.1 GM/dL (10.7-15.3); LYMPH % 15.6 % (8-40); MCH 28.3 pg (25.7-33.7); MCHC 33.7 g/dl (32.0-36.0); MEAN CELL VOLUME 83.8 fl (80-96); MEAN PLT VOLUME 7.8 fl (7.5-11.1); MONO % 10.7 % (3.8-10.2); NEUT % 68.9 % (42.8-82.8); PLATELET COUNT 346 K/MM3 (134-434); RBC 3.21 M/mm3 (3.60-5.2); RDW 14.4 % (11.6-15.6); WHITE BLOOD COUNT 9.7 K/mm3 (4.0-10.0)
[2019-03-06 13:01] LABS: ALBUMIN 2.2 g/dl (3.4-5.0); BILIRUBIN,TOTAL 0.9 mg/dL (0.2-1); BLOOD UREA NITROGEN 16.4 mg/dL (7-18); CALCIUM 8.6 mg/dL (8.5-10.1); CREATININE 0.8 mg/dL (0.55-1.3); POTASSIUM 3.9 mmol/L (3.5-5.1); TOT PROT 6.8 g/dl (6.4-8.2)
--- NOTE | 2019-03-06 13:01 | PN ---
Progress Note (short form) - Note Progress Note: no abd pain no chest pain occasional coughing+ light yellow sputum Vital Signs - 24 hr 03/05/19 03/05/19 03/05/19 14:34 18:00 20:40 Temperature 98.1 F 98.3 F Pulse Rate 79 80 Respiratory 20 20 20 Rate Blood Pressure 149/58 L 136/61 O2 Sat by Pulse 95 Oximetry (%) 03/05/19 03/06/19 03/06/19 22:00 01:35 06:00 Temperature 97.8 F 98.5 F 98.9 F Pulse Rate 77 75 78 Respiratory 20 18 20 Rate Blood Pressure 132/78 140/63 135/57 L O2 Sat by Pulse Oximetry (%) Current Medications Generic Name Dose Route Start Last Admin Trade Name Freq PRN Reason Stop Dose Admin Acetaminophen 650 mg 03/04/19 14:34 Tylenol - PO Q4H PRN FEVER Albuterol/Ipratropium 1 amp 03/05/19 13:15 Duoneb - NEB Q6H PRN SHORTNESS OF BREATH Atorvastatin Calcium 10 mg 03/04/19 22:00 03/05/19 21:35 Lipitor - PO 10 mg HS MANUELA Administration Enalapril Maleate 5 mg 03/05/19 10:00 03/06/19 09:10 Vasotec - PO 5 mg DAILY [facility]UELA Administration Guaifenesin 10 ml 03/05/19 21:46 03/06/19 09:08 Robitussin - PO 10 ml Q6H PRN Administration COUGH Heparin Sodium (Porcine) 5,000 unit 03/04/19 22:00 03/06/19 09:08 Heparin - SQ 5,000 unit BID MANUELA Administration Meropenem 1 gm/ Dextrose 100 mls @ 0 mls/hr 03/03/19 12:45 03/06/19 09:06 IVPB 100 mls/hr BID MANUELA Administration As Directed Insulin Aspart 1 vial 03/04/19 09:34 03/06/19 06:11 Novolog Vial Sliding Scale - SQ 6 units BIDAC MANUELA Administration Protocol Insulin Detemir 18 units 03/05/19 22:00 03/06/19 06:10 Levemir Vial SQ 18 units BID@0700,2200 MANUELA Administration Metoprolol Succinate 50 mg 03/05/19 10:00 03/06/19 09:08 Toprol Xl - PO 50 mg DAILY MANUELA Administration Non-Formulary Medication 15 gm 03/05/19 10:00 Becaplermin [Regranex] TP DAILY [facility] Oseltamivir Phosphate 30 mg 03/04/19 22:00 03/06/19 09:09 Tamiflu - PO 03/07/19 21:59 30 mg BID MANUELA Administration Laboratory Results - last 24 hr 03/05/19 03/05/19 03/06/19 17:05 21:27 05:52 WBC RBC Hgb Hct MCV MCH MCHC RDW Plt Count MPV Absolute Neuts (auto) Neutrophils % Lymphocytes % Monocytes % Eosinophils % Basophils % Nucleated RBC % POC Glucometer 341 354 269 03/06/19 03/06/19 11:28 12:05 WBC 9.7 RBC 3.21 L Hgb 9.1 L Hct 26.9 L MCV 83.8 MCH 28.3 MCHC 33.7 RDW 14.4 Plt Count 346 D MPV 7.8 D Absolute Neuts (auto) 6.7 Neutrophils % 68.9 Lymphocytes % 15.6 D Monocytes % 10.7 H Eosinophils % 4.4 D Basophils % 0.4 Nucleated RBC % 0 POC Glucometer 255 S1 S2 RRR Lungs no ronchi+ Abd- soft, tender suprapubic No edema PLAN Cultures positive for Ecoli-- Urine -- Ecoli On Meropenum clinically better increase Levemir off iv fluids OOB encourage po fluids droplet and contact isolation nebs as needed renal sono- negative Problem List - Problems (1) E. coli sepsis Code(s): A41.51 - SEPSIS DUE TO ESCHERICHIA COLI [E. COLI] (2) Influenza Code(s): J11.1 - FLU DUE TO UNIDENTIFIED INFLUENZA VIRUS W OTH RESP MANIFEST (3) Sepsis Code(s): A41.9 - SEPSIS, UNSPECIFIED ORGANISM Qualifiers: Sepsis type: sepsis due to unspecified organism Sepsis acute organ dysfunction status: unspecified Qualified Code(s): A41.9 - Sepsis, unspecified organism (4) Troponin level elevated Code(s): R79.89 - OTHER SPECIFIED ABNORMAL FINDINGS OF BLOOD CHEMISTRY (5) HLD (hyperlipidemia) Code(s): E78.5 - HYPERLIPIDEMIA, UNSPECIFIED (6) HTN (hypertension) Code(s): I10 - ESSENTIAL (PRIMARY) HYPERTENSION Qualifiers: (7) UTI (urinary tract infection) Code(s): N39.0 - URINARY TRACT INFECTION, SITE NOT SPECIFIED Qualifiers: Urinary tract infection type: acute cystitis Hematuria presence: without hematuria Qualified Code(s): N30.00 - Acute cystitis without hematuria
--- NOTE | 2019-03-06 13:05 | PN ---
Progress Note, Physician History of Present Illness: feeling better await for repeat blood cx await for identification of the organism - Current Medication List Current Medications: Active Medications Acetaminophen (Tylenol -) 650 mg PO Q4H PRN PRN Reason: FEVER Albuterol/Ipratropium (Duoneb -) 1 amp NEB Q6H PRN PRN Reason: SHORTNESS OF BREATH Enalapril Maleate (Vasotec -) 5 mg PO DAILY [facility] Last Admin: 03/06/19 09:10 Dose: 5 mg Guaifenesin (Robitussin -) 10 ml PO Q6H PRN PRN Reason: COUGH Last Admin: 03/06/19 09:08 Dose: 10 ml Heparin Sodium (Porcine) (Heparin -) 5,000 unit SQ BID [facility] Last Admin: 03/06/19 09:08 Dose: 5,000 unit Meropenem 1 gm/ Dextrose 100 mls @ 0 mls/hr IVPB BID [facility] Last Admin: 03/06/19 09:06 Dose: 100 mls/hr Insulin Aspart ([facility] Vial Sliding Scale -) [facility] Protocol Last Admin: 03/06/19 06:11 Dose: 6 units Insulin Detemir (Levemir Vial) 22 units SQ BID@0700,2200 [facility] Metoprolol Succinate (Toprol Xl -) 50 mg PO DAILY [facility] Last Admin: 03/06/19 09:08 Dose: 50 mg Non-Formulary Medication (Becaplermin [Regranex]) 15 gm TP DAILY [facility] Oseltamivir Phosphate (Tamiflu -) 30 mg PO BID [facility] Stop: 03/07/19 21:59 Last Admin: 03/06/19 09:09 Dose: 30 mg - Objective Vital Signs: Vital Signs Temperature 98.9 F 03/06/19 06:00 Pulse Rate 78 03/06/19 06:00 Respiratory Rate 20 03/06/19 06:00 Blood Pressure 135/57 L 03/06/19 06:00 O2 Sat by Pulse Oximetry (%) 95 03/05/19 20:40 Constitutional: Yes: No Distress, Calm Cardiovascular: Yes: S1, S2 Respiratory: Yes: Regular, CTA Bilaterally Gastrointestinal: Yes: Normal Bowel Sounds, Soft Musculoskeletal: Yes: WNL Extremities: Yes: WNL Neurological: Yes: Alert, Oriented Psychiatric: Yes: Alert, Oriented Labs: CBC, BMP 03/06/19 12:05 03/06/19 12:05 INR, PTT INR 1.29 (0.83-1.09) H 03/02/19 18:20 Assessment/Plan Problem List - Problems (1) E. coli sepsis Code(s): A41.51 - SEPSIS DUE TO ESCHERICHIA COLI [E. COLI] (2) Influenza Code(s): J11.1 - FLU DUE TO UNIDENTIFIED INFLUENZA VIRUS W OTH RESP MANIFEST (3) Sepsis Code(s): A41.9 - SEPSIS, UNSPECIFIED ORGANISM Qualifiers: Sepsis type: sepsis due to unspecified organism Sepsis acute organ dysfunction status: unspecified Qualified Code(s): A41.9 - Sepsis, unspecified organism (4) Troponin level elevated Code(s): R79.89 - OTHER SPECIFIED ABNORMAL FINDINGS OF BLOOD CHEMISTRY (5) HLD (hyperlipidemia) Code(s): E78.5 - HYPERLIPIDEMIA, UNSPECIFIED (6) HTN (hypertension) Code(s): I10 - ESSENTIAL (PRIMARY) HYPERTENSION Qualifiers: (7) UTI (urinary tract infection) Code(s): N39.0 - URINARY TRACT INFECTION, SITE NOT SPECIFIED Qualifiers: Urinary tract infection type: acute cystitis Hematuria presence: without hematuria Qualified Code(s): N30.00 - Acute cystitis without hematuria gm negative bacteremia plan continue abx await for repeat blood cx await for sensitivities rest as per the team
[2019-03-06] MEDS ORDERED: ACETAMINOPHEN 325 MG TABLET (FP) PO PRN (19:20)
[2019-03-06] MEDS ORDERED: ALBUTEROL SO4 2.5/IPRATROPIUM 0.5 INH SOL 3 ML VIAL.NEB. NEB PRN (19:20)
[2019-03-07] MEDS: guaiFENesin 200 MG/10 ML 10 ML UNIT-DOSE CUPS PO PRN ×3 (05:54→21:49)
[2019-03-07] MEDS: INSULIN SLIDING SCALE (NOVOLOG) 1 VIAL SQ SCH ×2 (06:25→16:24)
[2019-03-07] MEDS: INSULIN (LEVEMIR) 100 UNITS/ML UNITS SQ SCH ×2 (06:25→21:48)
[2019-03-07 07:07] LABS: BASO % 0.9 % (0-2.0); EOS % 4.4 % (0-4.5); HEMOGLOBIN 8.9 GM/dL (10.7-15.3); LYMPH % 16.1 % (8-40); MCH 28.6 pg (25.7-33.7); MCHC 34.3 g/dl (32.0-36.0); MEAN CELL VOLUME 83.3 fl (80-96); MEAN PLT VOLUME 7.9 fl (7.5-11.1); MONO % 9.2 % (3.8-10.2); NEUT % 69.4 % (42.8-82.8); PLATELET COUNT 329 K/MM3 (134-434); RBC 3.13 M/mm3 (3.60-5.2); RDW 14.1 % (11.6-15.6); WHITE BLOOD COUNT 8.8 K/mm3 (4.0-10.0)
[2019-03-07 07:32] LABS: ALBUMIN 2.2 g/dl (3.4-5.0); BILIRUBIN,TOTAL 0.8 mg/dL (0.2-1); BLOOD UREA NITROGEN 12.8 mg/dL (7-18); CALCIUM 8.5 mg/dL (8.5-10.1); CREATININE 0.8 mg/dL (0.55-1.3); TOT PROT 6.5 g/dl (6.4-8.2)
[2019-03-07] MEDS ORDERED: DEXTROSE 5%-WATER 100 ML IVPB ONE (09:31)
[2019-03-07] MEDS ORDERED: MEROPENEM 1 GM VIAL (RESTRICTED TO ID) IVPB ONE ×2 (09:31→21:31)
[2019-03-07] MEDS ORDERED: PT OWN MED DRAWER 7, Y5N ONE ×2 (09:33→16:44)
[2019-03-07] MEDS: MEROPENEM 1 GM in DEXTROSE 5%-WATER 100 ML IVPB SCH (09:39)
[2019-03-07] MEDS: HEPARIN NA (PORCINE) 5,000 UNITS/ML 1ML VIAL SQ SCH ×2 (09:40→21:49)
[2019-03-07] MEDS: ENALAPRIL MALEATE 5 MG TABLET (FP) PO SCH (09:41)
[2019-03-07] MEDS: OSELTAMIVIR PHOSPHATE 30 MG CAPSULE PO SCH (09:41)
[2019-03-07] MEDS ORDERED: PATIENT'S OWN MEDICATION (NON-FORMULARY) (Becaplermin [Regranex] 15 GM) TP SCH (10:00)
--- NOTE | 2019-03-07 11:48 | PN ---
Progress Note (short form) - Note Progress Note: s: no cp sob palps dizzy Current Medications Generic Name Dose Route Start Last Admin Trade Name Freq PRN Reason Stop Dose Admin Acetaminophen 650 mg 03/06/19 19:20 03/06/19 21:10 Tylenol - PO 650 mg Q4H PRN Administration FEVER Albuterol/Ipratropium 1 amp 03/06/19 19:20 03/06/19 20:27 Duoneb - NEB 1 amp Q6H PRN Administration SHORTNESS OF BREATH Benzocaine/Menthol 1 each 03/06/19 22:06 Cepacol Lozenge - MM Q4H PRN SORE THROAT Enalapril Maleate 5 mg 03/07/19 10:00 03/07/19 09:41 Vasotec - PO 5 mg DAILY [facility] Administration Guaifenesin 10 ml 03/06/19 19:20 03/07/19 05:54 Robitussin - PO 10 ml Q6H PRN Administration COUGH Heparin Sodium (Porcine) 5,000 unit 03/06/19 22:00 03/07/19 09:40 Heparin - SQ 5,000 unit BID [facility]EL[facility] Administration Meropenem 1 gm/ Dextrose 100 mls @ 0 mls/hr 03/06/19 22:00 03/07/19 09:39 IVPB 100 mls/hr BID [facility] Administration As Directed Insulin Aspart 1 vial 03/07/19 07:00 03/07/19 06:25 Novolog Vial Sliding Scale - SQ 2 units BIDAC MANUELA Administration Protocol Insulin Detemir 22 units 03/06/19 13:04 03/07/19 06:25 Levemir Vial SQ 22 units BID@0700,2200 [facility] Administration Metoprolol Succinate 50 mg 03/07/19 10:00 03/07/19 09:40 Toprol Xl - PO 50 mg DAILY [facility] Administration Non-Formulary Medication 15 gm 03/07/19 10:00 Becaplermin [Regranex] TP DAILY [facility] Oseltamivir Phosphate 30 mg 03/06/19 22:00 03/07/19 09:41 Tamiflu - PO 03/07/19 21:59 30 mg BID [facility] Administration Vital Signs Period Temp Pulse Resp BP Sys/Patel Pulse Ox Last 24 Hr 98.1 F-99.2 F 76-78 18-20 132-148/54-67 95-97 Constitutional: Yes: No Distress, Calm Eyes: Yes: Conjunctiva Clear Neck: Yes: Supple, Trachea Midline Respiratory: Yes: Regular, CTA Bilaterally Gastrointestinal: Yes: Normal Bowel Sounds, Soft Cardiovascular: Yes: Regular Rate and Rhythm JVD: No Edema: No Integumentary: No: Jaundice Neurological: Yes: Alert, Oriented Psychiatric: No: Agitated CBC, BMP 03/07/19 06:15 03/07/19 06:15 Assessment/Plan EKG: sinus tach, no ischemic changes echo 02/2019 nl LV function, impaired relaxation, nl RV, RA mildly dilated, mod MR, mod TR CXR: no acute process tele: sinus elevated troponin - intermediate elevation, flat trend. likely demand in setting of infection, not acs. - EKG no ischemic changes -echo unremarkable, no further cardiac testing - dc tele flu, UTI - manage per ID HTN - cont home meds HLD - cont statin
--- NOTE | 2019-03-07 12:36 | PN ---
Progress Note (short form) - Note Progress Note: no abd pain no chest pain occasional coughing+ light yellow sputum has burning in perineal area Vital Signs - 24 hr 03/06/19 03/06/19 03/06/19 14:24 18:00 20:40 Temperature 98.1 F 98.9 F Pulse Rate 78 76 Respiratory 18 18 Rate Blood Pressure 132/61 137/54 L O2 Sat by Pulse 97 Oximetry (%) 03/06/19 03/07/19 03/07/19 22:00 06:00 08:15 Temperature 99.2 F 98.4 F 98.2 F Pulse Rate 78 77 77 Respiratory 20 18 18 Rate Blood Pressure 148/67 143/61 140/54 L O2 Sat by Pulse Oximetry (%) 03/07/19 09:00 Temperature Pulse Rate Respiratory Rate Blood Pressure O2 Sat by Pulse 95 Oximetry (%) Current Medications Generic Name Dose Route Start Last Admin Trade Name Freq PRN Reason Stop Dose Admin Acetaminophen 650 mg 03/06/19 19:20 03/06/19 21:10 Tylenol - PO 650 mg Q4H PRN Administration FEVER Albuterol/Ipratropium 1 amp 03/06/19 19:20 03/06/19 20:27 Duoneb - NEB 1 amp Q6H PRN Administration SHORTNESS OF BREATH Benzocaine/Menthol 1 each 03/06/19 22:06 Cepacol Lozenge - MM Q4H PRN SORE THROAT Enalapril Maleate 5 mg 03/07/19 10:00 03/07/19 09:41 Vasotec - PO 5 mg DAILY [facility] Administration Guaifenesin 10 ml 03/06/19 19:20 03/07/19 05:54 Robitussin - PO 10 ml Q6H PRN Administration COUGH Heparin Sodium (Porcine) 5,000 unit 03/06/19 22:00 03/07/19 09:40 Heparin - SQ 5,000 unit BID [facility] Administration Meropenem 1 gm/ Dextrose 100 mls @ 0 mls/hr 03/06/19 22:00 03/07/19 09:39 IVPB 100 mls/hr BID [facility] Administration As Directed Insulin Aspart 1 vial 03/07/19 07:00 03/07/19 06:25 Novolog Vial Sliding Scale - SQ 2 units BIDAC [facility] Administration Protocol Insulin Detemir 22 units 03/06/19 13:04 03/07/19 06:25 Levemir Vial SQ 22 units BID@0700,2200 [facility] Administration Metoprolol Succinate 50 mg 03/07/19 10:00 03/07/19 09:40 Toprol Xl - PO 50 mg DAILY [facility] Administration Non-Formulary Medication 15 gm 03/07/19 10:00 Becaplermin [Regranex] TP DAILY [facility] Oseltamivir Phosphate 30 mg 03/06/19 22:00 03/07/19 09:41 Tamiflu - PO 03/07/19 21:59 30 mg BID [facility] Administration Laboratory Results - last 24 hr 03/06/19 03/06/19 03/06/19 12:05 12:05 16:11 WBC RBC Hgb Hct MCV MCH MCHC RDW Plt Count 346 D MPV 7.8 D Absolute Neuts (auto) Neutrophils % Lymphocytes % Monocytes % Eosinophils % Basophils % Nucleated RBC % Sodium 133 L Potassium 3.9 Chloride 98 Carbon Dioxide 29 Anion Gap 6 L BUN 16.4 Creatinine 0.8 Est GFR (CKD-EPI)AfAm 80.70 Est GFR (CKD-EPI)NonAf 69.63 POC Glucometer 305 Random Glucose 252 H Calcium 8.6 Total Bilirubin 0.9 AST 61 H ALT 77 H Alkaline Phosphatase 147 H Total Protein 6.8 Albumin 2.2 L 03/06/19 03/07/19 03/07/19 21:08 05:51 06:15 WBC 8.8 RBC 3.13 L Hgb 8.9 L Hct 26.0 L MCV 83.3 MCH 28.6 MCHC 34.3 RDW 14.1 Plt Count 329 MPV 7.9 Absolute Neuts (auto) 6.1 Neutrophils % 69.4 Lymphocytes % 16.1 Monocytes % 9.2 Eosinophils % 4.4 Basophils % 0.9 Nucleated RBC % 0 Sodium Potassium Chloride Carbon Dioxide Anion Gap BUN Creatinine Est GFR (CKD-EPI)AfAm Est GFR (CKD-EPI)NonAf POC Glucometer 293 169 Random Glucose Calcium Total Bilirubin AST ALT Alkaline Phosphatase Total Protein Albumin 03/07/19 06:15 WBC RBC Hgb Hct MCV MCH MCHC RDW Plt Count MPV Absolute Neuts (auto) Neutrophils % Lymphocytes % Monocytes % Eosinophils % Basophils % Nucleated RBC % Sodium 137 Potassium 4.0 Chloride 103 Carbon Dioxide 30 Anion Gap 4 L BUN 12.8 Creatinine 0.8 Est GFR (CKD-EPI)AfAm 80.70 Est GFR (CKD-EPI)NonAf 69.63 POC Glucometer Random Glucose 189 H Calcium 8.5 Total Bilirubin 0.8 AST 37 ALT 61 Alkaline Phosphatase 124 H Total Protein 6.5 Albumin 2.2 L S1 S2 RRR Lungs no ronchi+ Abd- soft, NT, BS+ perineal erythema+ trace edema PLAN Cultures positive for Ecoli-- Urine -- Ecoli On Meropenum clinically better increased Levemir yesterday off iv fluids OOB repeat cultures so far negative apply Fungal cream to perineal area encourage po fluids droplet and contact isolation nebs as needed renal sono- negative Problem List - Problems (1) E. coli sepsis Code(s): A41.51 - SEPSIS DUE TO ESCHERICHIA COLI [E. COLI] (2) Influenza Code(s): J11.1 - FLU DUE TO UNIDENTIFIED INFLUENZA VIRUS W OTH RESP MANIFEST (3) Sepsis Code(s): A41.9 - SEPSIS, UNSPECIFIED ORGANISM Qualifiers: Sepsis type: sepsis due to unspecified organism Sepsis acute organ dysfunction status: unspecified Qualified Code(s): A41.9 - Sepsis, unspecified organism (4) Troponin level elevated Code(s): R79.89 - OTHER SPECIFIED ABNORMAL FINDINGS OF BLOOD CHEMISTRY (5) HLD (hyperlipidemia) Code(s): E78.5 - HYPERLIPIDEMIA, UNSPECIFIED (6) HTN (hypertension) Code(s): I10 - ESSENTIAL (PRIMARY) HYPERTENSION Qualifiers: (7) UTI (urinary tract infection) Code(s): N39.0 - URINARY TRACT INFECTION, SITE NOT SPECIFIED Qualifiers: Urinary tract infection type: acute cystitis Hematuria presence: without hematuria Qualified Code(s): N30.00 - Acute cystitis without hematuria
--- NOTE | 2019-03-07 13:48 | PN ---
Progress Note, Physician History of Present Illness: patient stable no new issues - Current Medication List Current Medications: Active Medications Acetaminophen (Tylenol -) 650 mg PO Q4H PRN PRN Reason: FEVER Last Admin: 03/06/19 21:10 Dose: 650 mg Albuterol/Ipratropium (Duoneb -) 1 amp NEB Q6H PRN PRN Reason: SHORTNESS OF BREATH Last Admin: 03/06/19 20:27 Dose: 1 amp Benzocaine/Menthol (Cepacol Lozenge -) 1 each MM Q4H PRN PRN Reason: SORE THROAT Enalapril Maleate (Vasotec -) 5 mg PO DAILY [facility] Last Admin: 03/07/19 09:41 Dose: 5 mg Guaifenesin (Robitussin -) 10 ml PO Q6H PRN PRN Reason: COUGH Last Admin: 03/07/19 13:08 Dose: 10 ml Guaifenesin (Diabetic Tussin Dm -) 10 ml PO Q4H PRN PRN Reason: COUGH Heparin Sodium (Porcine) (Heparin -) 5,000 unit SQ BID [facility] Last Admin: 03/07/19 09:40 Dose: 5,000 unit Meropenem 1 gm/ Sodium (Chloride) 100 mls @ 0 mls/hr IVPB BID [facility] Insulin [facility] ([facility] Last Admin: 03/07/19 06:25 Dose: 2 units Insulin Detemir (Levemir Vial) 22 units SQ BID@0700,2200 [facility] Last Admin: 03/07/19 06:25 Dose: 22 units Metoprolol Succinate (Toprol Xl -) 50 mg PO DAILY [facility] Last Admin: 03/07/19 09:40 Dose: 50 mg Non-Formulary Medication (Becaplermin [Regranex]) 15 gm TP DAILY [facility] Nystatin (Mycostatin Cream -) 1 applic TP Q6HPO [facility] Oseltamivir Phosphate (Tamiflu -) 30 mg PO BID [facility] Stop: 03/07/19 21:59 Last Admin: 03/07/19 09:41 Dose: 30 mg - Objective Vital Signs: Vital Signs Temperature 98.2 F 03/07/19 08:15 Pulse Rate 77 03/07/19 08:15 Respiratory Rate 18 03/07/19 08:15 Blood Pressure 140/54 L 03/07/19 08:15 O2 Sat by Pulse Oximetry (%) 95 03/07/19 09:00 Constitutional: Yes: No Distress, Calm Cardiovascular: Yes: S1, S2 Respiratory: Yes: Regular, CTA Bilaterally Gastrointestinal: Yes: Normal Bowel Sounds, Soft Musculoskeletal: Yes: WNL Extremities: Yes: WNL Neurological: Yes: Alert, Oriented Psychiatric: Yes: Alert, Oriented Labs: CBC, BMP 03/07/19 06:15 03/07/19 06:15 INR, PTT INR 1.29 (0.83-1.09) H 03/02/19 18:20 Assessment/Plan Problem List - Problems (1) E. coli sepsis Code(s): A41.51 - SEPSIS DUE TO ESCHERICHIA COLI [E. COLI] (2) Influenza Code(s): J11.1 - FLU DUE TO UNIDENTIFIED INFLUENZA VIRUS W OTH RESP MANIFEST (3) Sepsis Code(s): A41.9 - SEPSIS, UNSPECIFIED ORGANISM Qualifiers: Sepsis type: sepsis due to unspecified organism Sepsis acute organ dysfunction status: unspecified Qualified Code(s): A41.9 - Sepsis, unspecified organism (4) Troponin level elevated Code(s): R79.89 - OTHER SPECIFIED ABNORMAL FINDINGS OF BLOOD CHEMISTRY (5) HLD (hyperlipidemia) Code(s): E78.5 - HYPERLIPIDEMIA, UNSPECIFIED (6) HTN (hypertension) Code(s): I10 - ESSENTIAL (PRIMARY) HYPERTENSION Qualifiers: (7) UTI (urinary tract infection) Code(s): N39.0 - URINARY TRACT INFECTION, SITE NOT SPECIFIED Qualifiers: Urinary tract infection type: acute cystitis Hematuria presence: without hematuria Qualified Code(s): N30.00 - Acute cystitis without hematuria gm negative bacteremia plan continue abx repeat blood cx negative
[2019-03-07] MEDS: BENZOCAINE/MENTH/CETYLPYRD CL 1 EACH LOZENGE MM PRN (16:47)
[2019-03-07] MEDS: NYSTATIN 100,000 UNIT/GM TOPICAL CREAM 15 GM TUBE TP SCH (19:30)
[2019-03-07] MEDS ORDERED: SODIUM CHLORIDE 100 ML IVPB ONE (21:31)
[2019-03-07] MEDS: MEROPENEM 1 GM in SODIUM CHLORIDE 100 ML IVPB SCH (21:49)
[2019-03-08] MEDS: NYSTATIN 100,000 UNIT/GM TOPICAL CREAM 15 GM TUBE TP SCH ×5 (00:13→17:26)
[2019-03-08] MEDS: INSULIN SLIDING SCALE (NOVOLOG) 1 VIAL SQ SCH ×2 (06:36→17:07)
[2019-03-08] MEDS: INSULIN (LEVEMIR) 100 UNITS/ML UNITS SQ SCH ×2 (06:36→21:22)
[2019-03-08] MEDS ORDERED: MEROPENEM 1 GM VIAL (RESTRICTED TO ID) IVPB ONE ×2 (09:52→20:40)
[2019-03-08] MEDS ORDERED: SODIUM CHLORIDE 100 ML IVPB ONE ×2 (09:52→20:40)
[2019-03-08] MEDS ORDERED: PT OWN MED DRAWER 7, Y5N ONE ×3 (09:54→15:41)
[2019-03-08] MEDS: HEPARIN NA (PORCINE) 5,000 UNITS/ML 1ML VIAL SQ SCH ×2 (10:03→21:22)
[2019-03-08] MEDS: ENALAPRIL MALEATE 5 MG TABLET (FP) PO SCH (10:03)
[2019-03-08] MEDS: MEROPENEM 1 GM in SODIUM CHLORIDE 100 ML IVPB SCH ×2 (10:03→21:23)
[2019-03-08] MEDS: guaiFENesin/D-M SUGAR-FREE/ACLHOL-FREE 118 ML BOTTLE PO PRN ×2 (10:14→17:07)
[2019-03-08] MEDS: BENZOCAINE/MENTH/CETYLPYRD CL 1 EACH LOZENGE MM PRN ×2 (10:14→15:47)
[2019-03-08] MEDS ORDERED: DOCUSATE SODIUM 100 MG CAPSULE (FP) PO PRN (13:02)
--- NOTE | 2019-03-08 13:03 | PN ---
Progress Note (short form) - Note Progress Note: sitting in chair comfortable looks better afebrile c/c - constipation all f/u noted Vital Signs Temp 97.9 F 03/08/19 06:00 Pulse 78 03/08/19 08:21 Resp 16 03/08/19 08:21 BP 127/52 L 03/08/19 08:21 Pulse Ox 96 03/08/19 09:00 Intake & Output 03/07/19 03/08/19 03/08/19 23:59 11:59 23:59 Intake Total 850 560 Balance 850 560 Intake: IVPB 200 Oral 850 360 Other: Voiding Method Toilet Toilet # Unmeasured Voids Void 2 2 Bowel Movement Yes Yes Active Medications Acetaminophen (Tylenol -) 650 mg PO Q4H PRN PRN Reason: FEVER Last Admin: 03/06/19 21:10 Dose: 650 mg Albuterol/Ipratropium (Duoneb -) 1 amp NEB Q6H PRN PRN Reason: SHORTNESS OF BREATH Last Admin: 03/06/19 20:27 Dose: 1 amp Benzocaine/Menthol (Cepacol Lozenge -) 1 each MM Q4H PRN PRN Reason: SORE THROAT Last Admin: 03/08/19 10:14 Dose: 1 each Docusate Sodium (Colace -) 100 mg PO BID PRN PRN Reason: CONSTIPATION Enalapril Maleate (Vasotec -) 5 mg PO DAILY [facility] Last Admin: 03/08/19 10:03 Dose: 5 mg Guaifenesin (Robitussin -) 10 ml PO Q6H PRN PRN Reason: COUGH Last Admin: 03/07/19 21:49 Dose: 10 ml Guaifenesin (Diabetic Tussin Dm -) 10 ml PO Q4H PRN PRN Reason: COUGH Last Admin: 03/08/19 10:14 Dose: 10 ml Heparin Sodium (Porcine) (Heparin -) 5,000 unit SQ BID [facility] Last Admin: 03/08/19 10:03 Dose: 5,000 unit Meropenem 1 gm/ Sodium (Chloride) 100 mls @ 0 mls/hr IVPB BID [facility] Last Admin: 03/08/19 10:03 Dose: 100 mls/hr Insulin Aspart (Novolog Vial Sliding Scale -) 1 vial SQ BIDAC [facility]; Protocol Last Admin: 03/08/19 06:36 Dose: 2 units Insulin Detemir (Levemir Vial) 22 units SQ BID@0700,2200 [facility] Last Admin: 03/08/19 06:36 Dose: 22 units Metoprolol Succinate (Toprol Xl -) 50 mg PO DAILY [facility] Last Admin: 03/08/19 10:03 Dose: 50 mg Non-Formulary Medication (Becaplermin [Regranex]) 15 gm TP DAILY [facility] Nystatin (Mycostatin Cream -) 1 applic TP Q6HPO [facility] Last Admin: 03/08/19 06:37 Dose: 1 applic CBC, BMP 03/07/19 06:15 03/07/19 06:15 Microbiology 03/06/19 06:00 Blood Culture - Preliminary Blood - Peripheral Venous NO GROWTH OBTAINED AFTER 48 HOURS, INCUBATION TO CONTINUE FOR 3 DAYS. 03/06/19 05:55 Blood Culture - Preliminary Blood - Peripheral Venous NO GROWTH OBTAINED AFTER 48 HOURS, INCUBATION TO CONTINUE FOR 3 DAYS. Physical Exam S1 S2 RRR Lungs no ronchi+ Abd- soft, NT, BS+ perineal erythema+ trace edema Neuro- alert/ awake PLAN E coli Bactremia + Flu Diabetes Anemia Constipation Better Monitor BGM Abx per i/d Stool softners oob- chair will follow Problem List - Problems (1) Troponin level elevated Code(s): R79.89 - OTHER SPECIFIED ABNORMAL FINDINGS OF BLOOD CHEMISTRY (2) Influenza Code(s): J11.1 - FLU DUE TO UNIDENTIFIED INFLUENZA VIRUS W OTH RESP MANIFEST (3) HTN (hypertension) Code(s): I10 - ESSENTIAL (PRIMARY) HYPERTENSION Qualifiers: (4) UTI (urinary tract infection) Code(s): N39.0 - URINARY TRACT INFECTION, SITE NOT SPECIFIED Qualifiers: Urinary tract infection type: acute cystitis Hematuria presence: without hematuria Qualified Code(s): N30.00 - Acute cystitis without hematuria
--- NOTE | 2019-03-08 13:50 | PN ---
Progress Note, Physician History of Present Illness: patient stable no new issues - Current Medication List Current Medications: Active Medications Acetaminophen (Tylenol -) 650 mg PO Q4H PRN PRN Reason: FEVER Last Admin: 03/06/19 21:10 Dose: 650 mg Albuterol/Ipratropium (Duoneb -) 1 amp NEB Q6H PRN PRN Reason: SHORTNESS OF BREATH Last Admin: 03/06/19 20:27 Dose: 1 amp Benzocaine/Menthol (Cepacol Lozenge -) 1 each MM Q4H PRN PRN Reason: SORE THROAT Last Admin: 03/08/19 10:14 Dose: 1 each Docusate Sodium (Colace -) 100 mg PO BID PRN PRN Reason: CONSTIPATION Enalapril Maleate (Vasotec -) 5 mg PO DAILY [facility] Last Admin: 03/08/19 10:03 Dose: 5 mg Guaifenesin (Robitussin -) 10 ml PO Q6H PRN PRN Reason: COUGH Last Admin: 03/07/19 21:49 Dose: 10 ml Guaifenesin (Diabetic Tussin Dm -) 10 ml PO Q4H PRN PRN Reason: COUGH Last Admin: 03/08/19 10:14 Dose: 10 ml Heparin Sodium (Porcine) (Heparin -) 5,000 unit SQ BID [facility] Last Admin: 03/08/19 10:03 Dose: 5,000 unit Meropenem 1 gm/ Sodium (Chloride) 100 mls @ 0 mls/hr IVPB BID [facility] Last Admin: 03/08/19 10:03 Dose: 100 mls/hr Insulin Aspart ([facility] -[facility] Last Admin: 03/08/19 06:36 Dose: 2 units Insulin Detemir (Levemir Vial) 22 units SQ BID@0700,2200 [facility] Last Admin: 03/08/19 06:36 Dose: 22 units Metoprolol Succinate (Toprol Xl -) 50 mg PO DAILY [facility] Last Admin: 03/08/19 10:03 Dose: 50 mg Non-Formulary Medication (Becaplermin [Regranex]) 15 gm TP DAILY [facility] Nystatin (Mycostatin Cream -) 1 applic TP Q6HPO [facility] Last Admin: 03/08/19 06:37 Dose: 1 applic - Objective Vital Signs: Vital Signs Temperature 97.9 F 03/08/19 06:00 Pulse Rate 78 03/08/19 08:21 Respiratory Rate 16 03/08/19 08:21 Blood Pressure 127/52 L 03/08/19 08:21 O2 Sat by Pulse Oximetry (%) 96 03/08/19 09:00 Constitutional: Yes: No Distress, Calm Cardiovascular: Yes: S1, S2 Respiratory: Yes: Regular, CTA Bilaterally Gastrointestinal: Yes: Normal Bowel Sounds, Soft Musculoskeletal: Yes: WNL Extremities: Yes: WNL Neurological: Yes: Alert, Oriented Psychiatric: Yes: Alert, Oriented Labs: CBC, BMP 03/07/19 06:15 03/07/19 06:15 INR, PTT INR 1.29 (0.83-1.09) H 03/02/19 18:20 Assessment/Plan Problem List - Problems (1) E. coli sepsis Code(s): A41.51 - SEPSIS DUE TO ESCHERICHIA COLI [E. COLI] (2) Influenza Code(s): J11.1 - FLU DUE TO UNIDENTIFIED INFLUENZA VIRUS W OTH RESP MANIFEST (3) Sepsis Code(s): A41.9 - SEPSIS, UNSPECIFIED ORGANISM Qualifiers: Sepsis type: sepsis due to unspecified organism Sepsis acute organ dysfunction status: unspecified Qualified Code(s): A41.9 - Sepsis, unspecified organism (4) Troponin level elevated Code(s): R79.89 - OTHER SPECIFIED ABNORMAL FINDINGS OF BLOOD CHEMISTRY (5) HLD (hyperlipidemia) Code(s): E78.5 - HYPERLIPIDEMIA, UNSPECIFIED (6) HTN (hypertension) Code(s): I10 - ESSENTIAL (PRIMARY) HYPERTENSION Qualifiers: (7) UTI (urinary tract infection) Code(s): N39.0 - URINARY TRACT INFECTION, SITE NOT SPECIFIED Qualifiers: Urinary tract infection type: acute cystitis Hematuria presence: without hematuria Qualified Code(s): N30.00 - Acute cystitis without hematuria gm negative bacteremia plan continue abx repeat blood cx negative tomorrow will be the last day of abx rest as per the team
--- NOTE | 2019-03-08 15:50 | PN ---
Progress Note (short form) - Note Progress Note: s: no cp sob palps dizzy Current Medications Generic Name Dose Route Start Last Admin Trade Name Freq PRN Reason Stop Dose Admin Acetaminophen 650 mg 03/06/19 19:20 03/06/19 21:10 Tylenol - PO 650 mg Q4H PRN Administration FEVER Albuterol/Ipratropium 1 amp 03/06/19 19:20 03/06/19 20:27 Duoneb - NEB 1 amp Q6H PRN Administration SHORTNESS OF BREATH Benzocaine/Menthol 1 each 03/06/19 22:06 03/08/19 15:47 Cepacol Lozenge - MM 1 each Q4H PRN Administration SORE THROAT Docusate Sodium 100 mg 03/08/19 13:02 Colace - PO BID PRN CONSTIPATION Enalapril Maleate 5 mg 03/07/19 10:00 03/08/19 10:03 Vasotec - PO 5 mg DAILY [facility] Administration Guaifenesin 10 ml 03/06/19 19:20 03/07/19 21:49 Robitussin - PO 10 ml Q6H PRN Administration COUGH Guaifenesin 10 ml 03/07/19 12:37 03/08/19 10:14 Diabetic Tussin Dm - PO 10 ml Q4H PRN Administration COUGH Heparin Sodium (Porcine) 5,000 unit 03/06/19 22:00 03/08/19 10:03 Heparin - SQ 5,000 unit BID [facility] Administration Meropenem 1 gm/ Sodium 100 mls @ 0 mls/hr 03/07/19 12:41 03/08/19 10:03 Chloride IVPB 100 mls/hr BID [facility] Administration As Directed Insulin Aspart 1 vial 03/07/19 07:00 03/08/19 06:36 Novolog Vial Sliding Scale - SQ 2 units BIDAC [facility] Administration Protocol Insulin Detemir 22 units 03/06/19 13:04 03/08/19 06:36 Levemir Vial SQ 22 units BID@0700,2200 [facility] Administration Metoprolol Succinate 50 mg 03/07/19 10:00 03/08/19 10:03 Toprol Xl - PO 50 mg DAILY [facility] Administration Non-Formulary Medication 15 gm 03/07/19 10:00 Becaplermin [Regranex] TP DAILY [facility] Nystatin 1 applic 03/07/19 18:00 03/08/19 14:14 Mycostatin Cream - TP 1 applic Q6HPO [facility] Administration Vital Signs Period Temp Pulse Resp BP Sys/Patel Pulse Ox Last 24 Hr 97.8 F-98.7 F 70-80 16-20 127-163/51-70 93-96 Constitutional: Yes: No Distress, Calm Eyes: Yes: Conjunctiva Clear Neck: Yes: Supple, Trachea Midline Respiratory: Yes: Regular, CTA Bilaterally Gastrointestinal: Yes: Normal Bowel Sounds, Soft Cardiovascular: Yes: Regular Rate and Rhythm JVD: No Edema: No Integumentary: No: Jaundice Neurological: Yes: Alert, Oriented Psychiatric: No: Agitated CBC, BMP 03/07/19 06:15 03/07/19 06:15 Assessment/Plan EKG: sinus tach, no ischemic changes echo 02/2019 nl LV function, impaired relaxation, nl RV, RA mildly dilated, mod MR, mod TR CXR: no acute process elevated troponin - intermediate elevation, flat trend. likely demand in setting of infection, not acs. - EKG no ischemic changes -echo unremarkable, no further cardiac testing flu, UTI - manage per ID HTN - cont home meds HLD - cont statin
[2019-03-08] MEDS: guaiFENesin 200 MG/10 ML 10 ML UNIT-DOSE CUPS PO PRN (21:22)
[2019-03-09] MEDS: NYSTATIN 100,000 UNIT/GM TOPICAL CREAM 15 GM TUBE TP SCH ×5 (04:53→23:23)
[2019-03-09] MEDS: INSULIN (LEVEMIR) 100 UNITS/ML UNITS SQ SCH ×2 (06:45→21:17)
[2019-03-09] MEDS: INSULIN SLIDING SCALE (NOVOLOG) 1 VIAL SQ SCH ×2 (06:46→17:02)
[2019-03-09] MEDS ORDERED: MEROPENEM 1 GM VIAL (RESTRICTED TO ID) IVPB ONE ×4 (08:12→20:45)
[2019-03-09] MEDS ORDERED: SODIUM CHLORIDE 100 ML IVPB ONE ×2 (08:12→20:45)
[2019-03-09] MEDS ORDERED: PT OWN MED DRAWER 7, Y5N ONE ×4 (08:14→18:53)
[2019-03-09] MEDS: HEPARIN NA (PORCINE) 5,000 UNITS/ML 1ML VIAL SQ SCH ×2 (09:24→21:17)
[2019-03-09] MEDS: MEROPENEM 1 GM in SODIUM CHLORIDE 100 ML IVPB SCH ×2 (09:30→21:16)
--- NOTE | 2019-03-09 11:11 | PN ---
Progress Note, Physician History of Present Illness: stable no new issues - Current Medication List Current Medications: Active Medications Acetaminophen (Tylenol -) 650 mg PO Q4H PRN PRN Reason: FEVER Last Admin: 03/06/19 21:10 Dose: 650 mg Albuterol/Ipratropium (Duoneb -) 1 amp NEB Q6H PRN PRN Reason: SHORTNESS OF BREATH Last Admin: 03/06/19 20:27 Dose: 1 amp Benzocaine/Menthol (Cepacol Lozenge -) 1 each MM Q4H PRN PRN Reason: SORE THROAT Last Admin: 03/08/19 15:47 Dose: 1 each Docusate Sodium (Colace -) 100 mg PO BID PRN PRN Reason: CONSTIPATION Enalapril Maleate (Vasotec -) 5 mg PO DAILY [facility] Last Admin: 03/08/19 10:03 Dose: 5 mg Guaifenesin (Robitussin -) 10 ml PO Q6H PRN PRN Reason: COUGH Last Admin: 03/08/19 21:22 Dose: 10 ml Guaifenesin (Diabetic Tussin Dm -) 10 ml PO Q4H PRN PRN Reason: COUGH Last Admin: 03/08/19 17:07 Dose: 10 ml Heparin Sodium (Porcine) (Heparin -) 5,000 unit SQ BID [facility] Last Admin: 03/09/19 09:24 Dose: 5,000 unit Meropenem 1 gm/ Sodium (Chloride) 100 mls @ 0 mls/hr IVPB BID [facility] Last Admin: 03/09/19 09:30 Dose: 100 mls/hr Insulin Aspart (Novolog Vial Sliding Scale -) [facility] Protocol Last Admin: 03/09/19 06:46 Dose: 2 units Insulin Detemir (Levemir Vial) 22 units SQ BID@0700,2200 [facility] Last Admin: 03/09/19 06:45 Dose: 22 units Metoprolol Succinate (Toprol Xl -) 50 mg PO DAILY [facility] Last Admin: 03/09/19 09:24 Dose: 50 mg Non-Formulary Medication (Becaplermin [Regranex]) 15 gm TP DAILY [facility] Nystatin (Mycostatin Cream -) 1 applic TP Q6HPO [facility] Last Admin: 03/09/19 06:45 Dose: 1 applic - Objective Vital Signs: Vital Signs Temperature 98.1 F 03/09/19 09:00 Pulse Rate 74 03/09/19 09:00 Respiratory Rate 18 03/09/19 09:00 Blood Pressure 146/56 L 03/09/19 09:00 O2 Sat by Pulse Oximetry (%) 92 L 03/08/19 21:00 Constitutional: Yes: No Distress, Calm Cardiovascular: Yes: S1, S2 Respiratory: Yes: Regular, CTA Bilaterally Gastrointestinal: Yes: Normal Bowel Sounds, Soft Musculoskeletal: Yes: WNL Extremities: Yes: WNL Neurological: Yes: Alert, Oriented Psychiatric: Yes: Alert, Oriented Labs: CBC, BMP 03/07/19 06:15 03/07/19 06:15 INR, PTT INR 1.29 (0.83-1.09) H 03/02/19 18:20 Assessment/Plan Problem List - Problems (1) E. coli sepsis Code(s): A41.51 - SEPSIS DUE TO ESCHERICHIA COLI [E. COLI] (2) Influenza Code(s): J11.1 - FLU DUE TO UNIDENTIFIED INFLUENZA VIRUS W OTH RESP MANIFEST (3) Sepsis Code(s): A41.9 - SEPSIS, UNSPECIFIED ORGANISM Qualifiers: Sepsis type: sepsis due to unspecified organism Sepsis acute organ dysfunction status: unspecified Qualified Code(s): A41.9 - Sepsis, unspecified organism (4) Troponin level elevated Code(s): R79.89 - OTHER SPECIFIED ABNORMAL FINDINGS OF BLOOD CHEMISTRY (5) HLD (hyperlipidemia) Code(s): E78.5 - HYPERLIPIDEMIA, UNSPECIFIED (6) HTN (hypertension) Code(s): I10 - ESSENTIAL (PRIMARY) HYPERTENSION Qualifiers: (7) UTI (urinary tract infection) Code(s): N39.0 - URINARY TRACT INFECTION, SITE NOT SPECIFIED Qualifiers: Urinary tract infection type: acute cystitis Hematuria presence: without hematuria Qualified Code(s): N30.00 - Acute cystitis without hematuria gm negative bacteremia plan continue abx repeat blood cx negative last day of abx today can stop tomorrow rest as per the team
--- NOTE | 2019-03-09 11:20 | PN ---
Progress Note (short form) - Note Progress Note: s: no cp sob palps dizzy Current Medications Generic Name Dose Route Start Last Admin Trade Name Freq PRN Reason Stop Dose Admin Acetaminophen 650 mg 03/06/19 19:20 03/06/19 21:10 Tylenol - PO 650 mg Q4H PRN Administration FEVER Albuterol/Ipratropium 1 amp 03/06/19 19:20 03/06/19 20:27 Duoneb - NEB 1 amp Q6H PRN Administration SHORTNESS OF BREATH Benzocaine/Menthol 1 each 03/06/19 22:06 03/08/19 15:47 Cepacol Lozenge - MM 1 each Q4H PRN Administration SORE THROAT Docusate Sodium 100 mg 03/08/19 13:02 Colace - PO BID PRN CONSTIPATION Enalapril Maleate 5 mg 03/07/19 10:00 03/08/19 10:03 Vasotec - PO 5 mg DAILY [facility] Administration Guaifenesin 10 ml 03/06/19 19:20 03/08/19 21:22 Robitussin - PO 10 ml Q6H PRN Administration COUGH Guaifenesin 10 ml 03/07/19 12:37 03/08/19 17:07 Diabetic Tussin Dm - PO 10 ml Q4H PRN Administration COUGH Heparin Sodium (Porcine) 5,000 unit 03/06/19 22:00 03/09/19 09:24 Heparin - SQ 5,000 unit BID [facility] Administration Meropenem 1 gm/ Sodium 100 mls @ 0 mls/hr 03/07/19 12:41 03/09/19 09:30 Chloride IVPB 100 mls/hr BID [facility] Administration As Directed Insulin Aspart 1 vial 03/07/19 07:00 03/09/19 06:46 Novolog Vial Sliding Scale - SQ 2 units BIDAC [facility] Administration Protocol Insulin Detemir 22 units 03/06/19 13:04 03/09/19 06:45 Levemir Vial SQ 22 units BID@0700,2200 [facility] Administration Metoprolol Succinate 50 mg 03/07/19 10:00 03/09/19 09:24 Toprol Xl - PO 50 mg DAILY [facility]ELA Administration Non-Formulary Medication 15 gm 03/07/19 10:00 Becaplermin [Regranex] TP DAILY MANUELA Nystatin 1 applic 03/07/19 18:00 03/09/19 06:45 Mycostatin Cream - TP 1 applic [id number] MANUELA Administration Vital Signs Period Temp Pulse Resp BP Sys/Patel Pulse Ox Last 24 Hr 98.1 F-99.2 F 70-83 16-18 136-155/51-78 92 Constitutional: Yes: No Distress, Calm Eyes: Yes: Conjunctiva Clear Neck: Yes: Supple, Trachea Midline Respiratory: Yes: Regular, CTA Bilaterally Gastrointestinal: Yes: Normal Bowel Sounds, Soft Cardiovascular: Yes: Regular Rate and Rhythm JVD: No Edema: No Integumentary: No: Jaundice Neurological: Yes: Alert, Oriented Psychiatric: No: Agitated CBC, BMP 03/07/19 06:15 03/07/19 06:15 Assessment/Plan EKG: sinus tach, no ischemic changes echo 02/2019 nl LV function, impaired relaxation, nl RV, RA mildly dilated, mod MR, mod TR CXR: no acute process elevated troponin - intermediate elevation, flat trend. likely demand in setting of infection, not acs. - EKG no ischemic changes -echo unremarkable, no further cardiac testing flu, UTI - manage per ID HTN - cont home meds HLD - cont statin
[2019-03-09] MEDS: ENALAPRIL MALEATE 5 MG TABLET (FP) PO SCH (11:44)
[2019-03-09] MEDS: guaiFENesin 200 MG/10 ML 10 ML UNIT-DOSE CUPS PO PRN ×2 (12:12→21:17)
--- NOTE | 2019-03-09 13:28 | PN ---
Progress Note (short form) - Note Progress Note: pt seen/ examined. comfortable no new issues i/d f/u noted Vital Signs Temp 98.1 F 03/09/19 09:00 Pulse 74 03/09/19 09:00 Resp 18 03/09/19 09:00 BP 146/56 L 03/09/19 09:00 Pulse Ox 95 03/09/19 09:00 Intake & Output 03/08/19 03/09/19 03/09/19 23:59 11:59 23:59 Intake Total 460 Balance 460 Intake: Oral 460 Other: Voiding Method Toilet Toilet # Unmeasured Voids Void 2 2 Bowel Movement No Active Medications Acetaminophen (Tylenol -) 650 mg PO Q4H PRN PRN Reason: FEVER Last Admin: 03/06/19 21:10 Dose: 650 mg Albuterol/Ipratropium (Duoneb -) 1 amp NEB Q6H PRN PRN Reason: SHORTNESS OF BREATH Last Admin: 03/06/19 20:27 Dose: 1 amp Benzocaine/Menthol (Cepacol Lozenge -) 1 each MM Q4H PRN PRN Reason: SORE THROAT Last Admin: 03/08/19 15:47 Dose: 1 each Docusate Sodium (Colace -) 100 mg PO BID PRN PRN Reason: CONSTIPATION Enalapril Maleate (Vasotec -) 5 mg PO DAILY [facility] [place] Last Admin: 03/09/19 11:44 Dose: 5 mg Guaifenesin (Robitussin -) 10 ml PO Q6H PRN PRN Reason: COUGH Last Admin: 03/09/19 12:12 Dose: 10 ml Guaifenesin (Diabetic Tussin Dm -) 10 ml PO Q4H PRN PRN Reason: COUGH Last Admin: 03/08/19 17:07 Dose: 10 ml Heparin Sodium (Porcine) (Heparin -) 5,000 unit SQ BID [facility] [place] Last Admin: 03/09/19 09:24 Dose: 5,000 unit Meropenem 1 gm/ Sodium (Chloride) 100 mls @ 0 mls/hr IVPB BID [facility] [place] Last Admin: 03/09/19 09:30 Dose: 100 mls/hr Insulin Aspart ([facility] Vial Sliding Scale -) [facility] Last Admin: 03/09/19 06:46 Dose: 2 units Insulin Detemir (Levemir Vial) 22 units SQ BID@0700,2200 [facility] [place] Last Admin: 03/09/19 06:45 Dose: 22 units Metoprolol Succinate (Toprol Xl -) 50 mg PO DAILY [facility] [place] Last Admin: 03/09/19 09:24 Dose: 50 mg Non-Formulary Medication (Becaplermin [Regranex]) 15 gm TP DAILY [facility] [place] Nystatin (Mycostatin Cream -) 1 applic TP Q6HPO [facility] [place] Last Admin: 03/09/19 12:12 Dose: 1 applic CBC, BMP 03/07/19 06:15 03/07/19 06:15 Microbiology 03/06/19 06:00 Blood Culture - Preliminary Blood - Peripheral Venous NO GROWTH OBTAINED AFTER 72 HOURS, INCUBATION TO CONTINUE FOR 2 DAYS. 03/06/19 05:55 Blood Culture - Preliminary Blood - Peripheral Venous NO GROWTH OBTAINED AFTER 72 HOURS, INCUBATION TO CONTINUE FOR 2 DAYS. Physical Exam S1 S2 RRR Lungs no ronchi+ Abd- soft, NT, BS+ trace edema Neuro- alert/ awake PLAN E coli Bactremia + Flu Diabetes Anemia Constipation Better Monitor BGM Abx per i/d Stool softners oob- chair will follow Increase levemir-- Bgm noted anticipate d/c tomorrow Problem List - Problems (1) Troponin level elevated Code(s): R79.89 - OTHER SPECIFIED ABNORMAL FINDINGS OF BLOOD CHEMISTRY (2) Influenza Code(s): J11.1 - FLU DUE TO UNIDENTIFIED INFLUENZA VIRUS W OTH RESP MANIFEST (3) HTN (hypertension) Code(s): I10 - ESSENTIAL (PRIMARY) HYPERTENSION Qualifiers: (4) UTI (urinary tract infection) Code(s): N39.0 - URINARY TRACT INFECTION, SITE NOT SPECIFIED Qualifiers: Urinary tract infection type: acute cystitis Hematuria presence: without hematuria Qualified Code(s): N30.00 - Acute cystitis without hematuria
[2019-03-09] MEDS ORDERED: MAGNESIUM HYDROX 2400MG/30ML ORAL SUSPENSION 30 ML CUP PO PRN (18:37)
[2019-03-09] MEDS: BENZOCAINE/MENTH/CETYLPYRD CL 1 EACH LOZENGE MM PRN (23:24)
[2019-03-10] MEDS: INSULIN (LEVEMIR) 100 UNITS/ML UNITS SQ SCH (06:40)
[2019-03-10] MEDS: INSULIN SLIDING SCALE (NOVOLOG) 1 VIAL SQ SCH (06:41)
[2019-03-10] MEDS: BENZOCAINE/MENTH/CETYLPYRD CL 1 EACH LOZENGE MM PRN (06:41)
[2019-03-10] MEDS: NYSTATIN 100,000 UNIT/GM TOPICAL CREAM 15 GM TUBE TP SCH ×2 (06:42→11:59)
[2019-03-10 08:02] VITALS: BP 147/71; PULSE 73; TEMP 98.8
[2019-03-10] MEDS ORDERED: MEROPENEM 1 GM VIAL (RESTRICTED TO ID) IVPB ONE (10:12)
[2019-03-10] MEDS ORDERED: SODIUM CHLORIDE 100 ML IVPB ONE (10:12)
[2019-03-10] MEDS ORDERED: PT OWN MED DRAWER 7, Y5N ONE (10:13)
[2019-03-10] MEDS: ENALAPRIL MALEATE 5 MG TABLET (FP) PO SCH (10:20)
[2019-03-10] MEDS: HEPARIN NA (PORCINE) 5,000 UNITS/ML 1ML VIAL SQ SCH (10:20)
[2019-03-10] MEDS: MEROPENEM 1 GM in SODIUM CHLORIDE 100 ML IVPB SCH (10:20)
--- NOTE | 2019-03-10 10:36 | PN ---
Progress Note (short form) - Note Progress Note: s: no cp sob palps dizzy Current Medications Generic Name Dose Route Start Last Admin Trade Name Freq PRN Reason Stop Dose Admin Acetaminophen 650 mg 03/06/19 19:20 03/06/19 21:10 Tylenol - PO 650 mg Q4H PRN Administration FEVER Albuterol/Ipratropium 1 amp 03/06/19 19:20 03/06/19 20:27 Duoneb - NEB 1 amp Q6H PRN Administration SHORTNESS OF BREATH Benzocaine/Menthol 1 each 03/06/19 22:06 03/10/19 06:41 Cepacol Lozenge - MM 1 each Q4H PRN Administration SORE THROAT Docusate Sodium 100 mg 03/08/19 13:02 03/09/19 17:37 Colace - PO 100 mg BID PRN Administration CONSTIPATION Enalapril Maleate 5 mg 03/07/19 10:00 03/10/19 10:20 Vasotec - PO 5 mg DAILY [facility] Administration Guaifenesin 10 ml 03/06/19 19:20 03/09/19 21:17 Robitussin - PO 10 ml Q6H PRN Administration COUGH Guaifenesin 10 ml 03/07/19 12:37 03/08/19 17:07 Diabetic Tussin Dm - PO 10 ml Q4H PRN Administration COUGH Heparin Sodium (Porcine) 5,000 unit 03/06/19 22:00 03/10/19 10:20 Heparin - SQ 5,000 unit BID [facility] Administration Meropenem 1 gm/ Sodium 100 mls @ 0 mls/hr 03/07/19 12:41 03/10/19 10:20 Chloride IVPB 100 mls/hr BID [facility] Administration As Directed Insulin Aspart 1 vial 03/07/19 07:00 03/10/19 06:41 Novolog Vial Sliding Scale - SQ 2 units BIDAC [facility] Administration Protocol Insulin Detemir 25 units 03/09/19 13:29 03/10/19 06:40 Levemir Vial SQ 25 units BID@0700,2200 [facility] Administration Magnesium Hydroxide 30 ml 03/09/19 18:37 03/09/19 21:17 Milk Of Magnesia - PO 30 ml PRN PRN Administration CONSTIPATION Metoprolol Succinate 50 mg 03/07/19 10:00 03/10/19 10:20 Toprol Xl - PO 50 mg DAILY [facility] Administration Non-Formulary Medication 15 gm 03/07/19 10:00 Becaplermin [Regranex] TP DAILY [facility] Nystatin 1 applic 03/07/19 18:00 03/10/19 06:42 Mycostatin Cream - TP 1 applic Q6HPO [facility] Administration Vital Signs Period Temp Pulse Resp BP Sys/Patel Pulse Ox Last 24 Hr 98.0 F-98.8 F 71-77 16-18 145-158/56-73 94 Constitutional: Yes: No Distress, Calm Eyes: Yes: Conjunctiva Clear Neck: Yes: Supple, Trachea Midline Respiratory: Yes: Regular, CTA Bilaterally Gastrointestinal: Yes: Normal Bowel Sounds, Soft Cardiovascular: Yes: Regular Rate and Rhythm JVD: No Edema: No Integumentary: No: Jaundice Neurological: Yes: Alert, Oriented Psychiatric: No: Agitated CBC, BMP 03/07/19 06:15 03/07/19 06:15 Assessment/Plan EKG: sinus tach, no ischemic changes echo 02/2019 nl LV function, impaired relaxation, nl RV, RA mildly dilated, mod MR, mod TR CXR: no acute process elevated troponin - intermediate elevation, flat trend. likely demand in setting of infection, not acs. - EKG no ischemic changes -echo unremarkable, no further cardiac testing flu, UTI - manage per ID HTN - cont home meds HLD - cont statin cardiac [place]inson stable
--- NOTE | 2019-03-10 11:20 | PN ---
Progress Note, Physician History of Present Illness: stable no new issues - Current Medication List Current Medications: Active Medications Acetaminophen (Tylenol -) 650 mg PO Q4H PRN PRN Reason: FEVER Last Admin: 03/06/19 21:10 Dose: 650 mg Albuterol/Ipratropium (Duoneb -) 1 amp NEB Q6H PRN PRN Reason: SHORTNESS OF BREATH Last Admin: 03/06/19 20:27 Dose: 1 amp Benzocaine/Menthol (Cepacol Lozenge -) 1 each MM Q4H PRN PRN Reason: SORE THROAT Last Admin: 03/10/19 06:41 Dose: 1 each Docusate Sodium (Colace -) 100 mg PO BID PRN PRN Reason: CONSTIPATION Last Admin: 03/09/19 17:37 Dose: 100 mg Enalapril Maleate (Vasotec -) 5 mg PO DAILY [facility] Last Admin: 03/10/19 10:20 Dose: 5 mg Guaifenesin (Robitussin -) 10 ml PO Q6H PRN PRN Reason: COUGH Last Admin: 03/09/19 21:17 Dose: 10 ml Guaifenesin (Diabetic Tussin Dm -) 10 ml PO Q4H PRN PRN Reason: COUGH Last Admin: 03/08/19 17:07 Dose: 10 ml Heparin Sodium (Porcine) (Heparin -) 5,000 unit SQ BID [facility] Last Admin: 03/10/19 10:20 Dose: 5,000 unit Meropenem 1 gm/ Sodium (Chloride) 100 mls @ 0 mls/hr IVPB BID [facility] Last Admin: 03/10/19 10:20 Dose: 100 mls/hr Insulin Aspart (Novolog Vial Sliding Scale -) 1 vial SQ BIDAC [facility]; Protocol Last Admin: 03/10/19 06:41 Dose: 2 units Insulin Detemir (Levemir Vial) 25 units SQ BID@0700,2200 [facility] Last Admin: 03/10/19 06:40 Dose: 25 units Magnesium Hydroxide (Milk Of Magnesia -) 30 ml PO PRN PRN PRN Reason: CONSTIPATION Last Admin: 03/09/19 21:17 Dose: 30 ml Metoprolol Succinate (Toprol Xl -) 50 mg PO DAILY [facility] Last Admin: 03/10/19 10:20 Dose: 50 mg Non-Formulary Medication (Becaplermin [Regranex]) 15 gm TP DAILY [facility] Nystatin (Mycostatin Cream -) 1 applic TP Q6HPO [facility] Last Admin: 03/10/19 06:42 Dose: 1 applic - Objective Vital Signs: Vital Signs Temperature 98.8 F 03/10/19 08:01 Pulse Rate 73 03/10/19 08:01 Respiratory Rate 16 03/10/19 08:01 Blood Pressure 147/71 03/10/19 08:01 O2 Sat by Pulse Oximetry (%) 94 L 03/09/19 20:30 Constitutional: Yes: No Distress, Calm Cardiovascular: Yes: S1, S2 Respiratory: Yes: Regular, CTA Bilaterally Gastrointestinal: Yes: Normal Bowel Sounds, Soft Musculoskeletal: Yes: WNL Extremities: Yes: WNL Neurological: Yes: Alert, Oriented Psychiatric: Yes: Alert, Oriented Labs: CBC, BMP 03/07/19 06:15 03/07/19 06:15 INR, PTT INR 1.29 (0.83-1.09) H 03/02/19 18:20 Assessment/Plan Problem List - Problems (1) E. coli sepsis Code(s): A41.51 - SEPSIS DUE TO ESCHERICHIA COLI [E. COLI] (2) Influenza Code(s): J11.1 - FLU DUE TO UNIDENTIFIED INFLUENZA VIRUS W OTH RESP MANIFEST (3) Sepsis Code(s): A41.9 - SEPSIS, UNSPECIFIED ORGANISM Qualifiers: Sepsis type: sepsis due to unspecified organism Sepsis acute organ dysfunction status: unspecified Qualified Code(s): A41.9 - Sepsis, unspecified organism (4) Troponin level elevated Code(s): R79.89 - OTHER SPECIFIED ABNORMAL FINDINGS OF BLOOD CHEMISTRY (5) HLD (hyperlipidemia) Code(s): E78.5 - HYPERLIPIDEMIA, UNSPECIFIED (6) HTN (hypertension) Code(s): I10 - ESSENTIAL (PRIMARY) HYPERTENSION Qualifiers: (7) UTI (urinary tract infection) Code(s): N39.0 - URINARY TRACT INFECTION, SITE NOT SPECIFIED Qualifiers: Urinary tract infection type: acute cystitis Hematuria presence: without hematuria Qualified Code(s): N30.00 - Acute cystitis without hematuria gm negative bacteremia plan continue current mgmt no abx rest as per the team
--- NOTE | 2019-03-10 13:39 | DS ---
Physical Examination Vital Signs: Vital Signs Temperature 98.8 F 03/10/19 08:01 Pulse Rate 73 03/10/19 08:01 Respiratory Rate 16 03/10/19 08:01 Blood Pressure 147/71 03/10/19 08:01 O2 Sat by Pulse Oximetry (%) 94 L 03/09/19 20:30 Findings/Remarks: Pt seen/ examined comfortable afebrile no new issues Constitutional: Yes: No Distress Eyes: Yes: Conjunctiva Clear Neck: Yes: Supple Cardiovascular: Yes: Regular Rate and Rhythm Respiratory: Yes: CTA Bilaterally Gastrointestinal: Yes: Soft Edema: No Neurological: Yes: Alert Labs: CBC, BMP 03/07/19 06:15 03/07/19 06:15 Discharge Summary Problems reviewed: Yes Reason For Visit: SEPSIS, INFLUENZA, PNEUMONIA Current Active Problems E. 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 According to daughter at bedside, patient slid out of bed on Monday night due to severe shivering (attempted to get out of bed), complain of left hip pain, did not hit her head or lost LOC. Yesterday went to PMD (Dr. Holman) due to fever, chills at office diagnosed with flu and UTI, was given Cipro PO, and Oseltamavir. However symptoms did not improve and daughter called PMD who recommended to bring patient to ED for further Evaluation. pt diagnosed with E coli Bactremia/ treated with abx i/d followed now stable for d/c off abx f/u in office in 1-2 weeks pt in agreement. meds reconcilled d/w rn also Condition: Stable - Instructions Referrals: Chloé Garcia MD [Primary Care Provider] - Disposition: HOME - Home Medications Comprehensive Discharge Medication List: Ambulatory Orders Furosemide [Lasix] 20 mg PO DAILY 08/09/18 Atorvastatin Ca [Lipitor] 10 mg PO HS tablet 08/13/18 Enalapril Maleate [Vasotec -] 5 mg PO DAILY tablet 08/13/18 Metoprolol Succinate [Toprol XL -] 50 mg PO DAILY tab.sr.24h 08/13/18 Insulin (Levemir) [Levemir Vial] 10 units SQ HS #0 units 10/05/18 Becaplermin [Regranex] 15 gm TP DAILY 30 Days #1 gel..gram. 11/14/18 Acetaminophen [Tylenol .Regular Strength -] 650 mg PO Q4H PRN tablet 03/10/19 Albuterol 2.5/Ipratropium 0.5 [Duoneb -] 1 amp NEB Q6H PRN amp 03/10/19 Docusate Sodium [Colace -] 100 mg PO BID PRN capsule 03/10/19 Guaifenesin/D-Methorphan Hb [Diabetic Tussin Dm -] 10 ml PO Q4H PRN ml Insulin (Novolog 70/30) [Novolog Mix 70/30 Vial -] 36 units SQ BIDAC #0 units Magnesium Hydrox 2400MG/30Ml [Milk of Magnesia -] 30 ml PO PRN PRN cup
[2019-03-10] MEDS ORDERED: INSULIN (LEVEMIR) 100 UNITS/ML UNITS SQ SCH (22:00)
== END 2019-03-10 14:53 | disposition home or self-care (01) | DRG 872 ==
LOC: JER 16:00 → JERBED 19:21 → J4S 03-04 14:17
PROVIDERS: ADMIT Internal Medicine; ATTEND Internal Medicine
DX: A41.51 Sepsis due to Escherichia coli [E. coli] (principal); I24.8 Other forms of acute ischemic heart disease; N39.0 Urinary tract infection, site not specified; J11.1 Influenza due to unidentified influenza virus with other respiratory manifestations; I10 Essential (primary) hypertension; E78.5 Hyperlipidemia, unspecified; E11.9 Type 2 diabetes mellitus without complications; Z87.891 Personal history of nicotine dependence; Z88.0 Allergy status to penicillin; Z79.4 Long term (current) use of insulin; D64.9 Anemia, unspecified; K59.00 Constipation, unspecified
CPT/HCPCS: 36415; 71045-TC-FY; 76775-TC; 76856-TC; 80048; 80053; 81003; 82803; 82962; 83036; 83605; 84443; 84484; 85025; 85027; 85610; 85730; 86850; 86900; 86901; 87040; 87086; 87186; 93005; 93010; 93306-TC; 94640; 97116-GP; 97161-GP; 99285-25; J0131; J1644

== ENCOUNTER 2021-10-11 21:53 | Observation (INO) | payer OTHER ==
[2021-10-11] MEDS ORDERED: ONDANSETRON 4 MG/2 ML VIAL IVPUSH ONE (22:19)
[2021-10-11 22:20] VITALS: BMI 32.8
[2021-10-11] MEDS ORDERED: ONDANSETRON 4 MG/2 ML VIAL ONE (22:30)
[2021-10-11 23:02] LABS: BASO % 0.5 % (0-2.0); EOS % 7.6 % (0-4.5); HEMATOCRIT 29.8 % (32.4-45.2); HEMOGLOBIN 10.4 GM/dL (10.7-15.3); LYMPH % 21.9 % (8-40); MCH 30.4 pg (25.7-33.7); MEAN CELL VOLUME 86.8 fl (80-96); MEAN PLT VOLUME 9.5 fl (7.5-11.1); PLATELET COUNT 80 10^3/uL (134-434); RBC 3.44 M/mm3 (3.60-5.2); RDW 15.7 % (11.6-15.6); WHITE BLOOD COUNT 4.3 K/mm3 (4.0-10.0)
[2021-10-11] MEDS ORDERED: ACETAMINOPHEN 1000 MG/100 ML BAG IVPB ONE (23:04)
[2021-10-11] MEDS ORDERED: SODIUM CHLORIDE 0.9% 500 ML INFUS.BAG IV ONE (23:04)
[2021-10-11] MEDS ORDERED: ACETAMINOPHEN INJECTION 100 ML IVPB ONE (23:08)
[2021-10-11 23:09] LABS: INR 0.95 (0.83-1.09); PROTHROMBIN TIME (PATIENT) 10.9 SEC (9.7-13.0)
[2021-10-11 23:11] LABS: ACTIVATED PTT 18.3 SECONDS (25.2-36.5)
[2021-10-11 23:16] LABS: BLOOD UREA NITROGEN 32.8 mg/dL (7-18); CALCIUM 9.7 mg/dL (8.5-10.1); MAGNESIUM 2.3 mg/dL (1.8-2.4)
[2021-10-11 23:19] LABS: CREATININE 0.9 mg/dL (0.55-1.3)
[2021-10-11 23:21] LABS: BILIRUBIN,TOTAL 1.3 mg/dL (0.2-1); TOT PROT 8.4 g/dl (6.4-8.2)
[2021-10-11] MEDS ORDERED: METOCLOPRAMIDE HCL INJECTION 10 MG/2 ML VIAL IVPUSH ONE (23:42)
[2021-10-11] MEDS ORDERED: METOCLOPRAMIDE HCL INJECTION 10 MG/2 ML VIAL ONE (23:43)
[2021-10-12 01:15] LABS: CALCIUM 8.5 mg/dL (8.5-10.1)
[2021-10-12 01:16] LABS: BLOOD UREA NITROGEN 31.6 mg/dL (7-18)
[2021-10-12 01:19] LABS: CREATININE 0.8 mg/dL (0.55-1.3)
[2021-10-12 03:10] LABS: EPI CELLS 3 /uL (0-25.1); HYALINE CASTS 0 /uL (0-3.1); PH,URINE 5.5 (5.0-8.0); URINE APPEARANCE CLEAR; URINE BACTERIA >9,000 /uL (0-1359); URINE BILIRUBIN NEGATIVE (NEGATIVE); URINE COLOR YELLOW; URINE GLUCOSE (UA) NEGATIVE (NEGATIVE); URINE KETONE NEGATIVE (NEGATIVE); URINE LEUK ESTERASE NEGATIVE (NEGATIVE); URINE NITRITE POSITIVE (NEGATIVE); URINE PROTEIN TRACE (NEGATIVE); URINE RBC 4 /uL (0-23.9); URINE UROBILINOGEN 0.2 mg/dL (0.2-1.0); URINE WBC 7 /uL (0-25.8)
[2021-10-12] MEDS ORDERED: AZTREONAM 0.5 GM in DEXTROSE 5%-WATER - 50 ML IVPB SCH ×2 (05:00→22:00)
[2021-10-12] MEDS ORDERED: ACETAMINOPHEN 325 MG TABLET (FP) PO PRN (05:50)
[2021-10-12] MEDS ORDERED: LEVOTHYROXINE NA 25 MCG TABLET (FP) PO SCH (07:00)
[2021-10-12] MEDS ORDERED: PATIENT'S OWN MEDICATION (NON-FORMULARY) (Ipratropium Bromide [Atrovent Hfa] 12.9 GM Hfa.A IH SCH (10:00)
[2021-10-12] MEDS: ENALAPRIL MALEATE 2.5 MG TABLET PO SCH (10:54)
[2021-10-12 12:44] LABS: HEMATOCRIT 40.5 % (32.4-45.2); HEMOGLOBIN 13.3 GM/dL (10.7-15.3); MCH 28.9 pg (25.7-33.7); MCHC 32.8 g/dl (32.0-36.0); MEAN CELL VOLUME 88.1 fl (80-96); MEAN PLT VOLUME 8.9 fl (7.5-11.1); PLATELET COUNT 177 10^3/uL (134-434); RDW 16.4 % (11.6-15.6); WHITE BLOOD COUNT 6.5 K/mm3 (4.0-10.0)
[2021-10-12] MEDS: INSULIN SLIDING SCALE (NOVOLOG) 1 VIAL SQ SCH ×3 (14:02→21:27)
[2021-10-12] MEDS ORDERED: AZTREONAM 1 GM VIAL (RESTRICTED TO ID) ONE (16:52)
[2021-10-12] MEDS ORDERED: DEXTROSE 5%-WATER - 50 ML IVPB ONE (16:52)
[2021-10-12] MEDS: INSULIN (NOVOLOG MIX 70/30) 100 UNITS/ML MDV SQ SCH (17:47)
[2021-10-12] MEDS: AZTREONAM 1 GM in DEXTROSE 5%-WATER - 50 ML IVPB SCH (19:19)
[2021-10-13] MEDS ORDERED: AZTREONAM 1 GM VIAL (RESTRICTED TO ID) ONE ×3 (01:51→17:08)
[2021-10-13] MEDS ORDERED: DEXTROSE 5%-WATER - 50 ML IVPB ONE ×3 (01:52→17:08)
[2021-10-13] MEDS: AZTREONAM 1 GM in DEXTROSE 5%-WATER - 50 ML IVPB SCH ×3 (02:40→17:38)
[2021-10-13] MEDS: INSULIN SLIDING SCALE (NOVOLOG) 1 VIAL SQ SCH ×5 (06:21→21:25)
[2021-10-13] MEDS: LEVOTHYROXINE NA 25 MCG TABLET (FP) PO SCH (06:21)
[2021-10-13 07:34] LABS: BASO % 0.8 % (0-2.0); EOS % 10.5 % (0-4.5); HEMATOCRIT 37.2 % (32.4-45.2); HEMOGLOBIN 12.5 GM/dL (10.7-15.3); LYMPH % 24.6 % (8-40); MCH 29.2 pg (25.7-33.7); MCHC 33.5 g/dl (32.0-36.0); MEAN CELL VOLUME 87.2 fl (80-96); MEAN PLT VOLUME 8.8 fl (7.5-11.1); MONO % 8.8 % (3.8-10.2); NEUT % 55.3 % (42.8-82.8); PLATELET COUNT 182 10^3/uL (134-434); RBC 4.26 M/mm3 (3.60-5.2); RDW 15.8 % (11.6-15.6); WHITE BLOOD COUNT 6.9 K/mm3 (4.0-10.0)
[2021-10-13] MEDS: INSULIN (NOVOLOG MIX 70/30) 100 UNITS/ML MDV SQ SCH ×2 (08:00→17:30)
[2021-10-13 08:06] LABS: BLOOD UREA NITROGEN 24.3 mg/dL (7-18); CALCIUM 8.8 mg/dL (8.5-10.1)
[2021-10-13 08:10] LABS: TOT PROT 6.6 g/dl (6.4-8.2)
[2021-10-13 08:14] LABS: ALBUMIN 3.1 g/dl (3.4-5.0)
[2021-10-13] MEDS: ENALAPRIL MALEATE 2.5 MG TABLET PO SCH (09:45)
[2021-10-13] MEDS: APIXABAN 5 MG TABLET PO SCH ×2 (10:58→21:21)
[2021-10-13] MEDS: LORATADINE 10 MG TABLET PO SCH (14:59)
[2021-10-14] MEDS: AZTREONAM 1 GM in DEXTROSE 5%-WATER - 50 ML IVPB SCH ×3 (03:30→17:49)
[2021-10-14] MEDS ORDERED: AZTREONAM 1 GM VIAL (RESTRICTED TO ID) ONE ×3 (03:49→17:38)
[2021-10-14] MEDS ORDERED: DEXTROSE 5%-WATER - 50 ML IVPB ONE ×3 (03:50→17:39)
[2021-10-14] MEDS: LEVOTHYROXINE NA 25 MCG TABLET (FP) PO SCH (06:26)
[2021-10-14] MEDS: INSULIN SLIDING SCALE (NOVOLOG) 1 VIAL SQ SCH ×4 (06:26→21:17)
[2021-10-14] MEDS: INSULIN (NOVOLOG MIX 70/30) 100 UNITS/ML MDV SQ SCH ×2 (06:27→17:36)
[2021-10-14 07:24] LABS: BASO % 0.8 % (0-2.0); EOS % 9.9 % (0-4.5); HEMATOCRIT 37.2 % (32.4-45.2); HEMOGLOBIN 12.4 GM/dL (10.7-15.3); LYMPH % 21.6 % (8-40); MCH 29.1 pg (25.7-33.7); MCHC 33.4 g/dl (32.0-36.0); MEAN CELL VOLUME 87.2 fl (80-96); MEAN PLT VOLUME 8.7 fl (7.5-11.1); MONO % 9.4 % (3.8-10.2); NEUT % 58.3 % (42.8-82.8); PLATELET COUNT 180 10^3/uL (134-434); RBC 4.27 M/mm3 (3.60-5.2); RDW 15.6 % (11.6-15.6); WHITE BLOOD COUNT 6.3 K/mm3 (4.0-10.0)
[2021-10-14] MEDS: APIXABAN 5 MG TABLET PO SCH ×2 (09:15→21:15)
[2021-10-14] MEDS: LORATADINE 10 MG TABLET PO SCH (09:15)
[2021-10-14] MEDS: ENALAPRIL MALEATE 2.5 MG TABLET PO SCH (09:16)
[2021-10-14] MEDS: guaiFENesin 200 MG/10 ML 10 ML UNIT-DOSE CUPS PO PRN (22:19)
[2021-10-15] MEDS ORDERED: AZTREONAM 1 GM VIAL (RESTRICTED TO ID) ONE ×2 (01:11→09:47)
[2021-10-15] MEDS ORDERED: DEXTROSE 5%-WATER - 50 ML IVPB ONE ×2 (01:11→09:48)
[2021-10-15] MEDS: AZTREONAM 1 GM in DEXTROSE 5%-WATER - 50 ML IVPB SCH ×2 (01:37→10:53)
[2021-10-15] MEDS: INSULIN (NOVOLOG MIX 70/30) 100 UNITS/ML MDV SQ SCH (06:50)
[2021-10-15] MEDS: LEVOTHYROXINE NA 25 MCG TABLET (FP) PO SCH (06:50)
[2021-10-15] MEDS: INSULIN SLIDING SCALE (NOVOLOG) 1 VIAL SQ SCH ×2 (06:50→13:10)
[2021-10-15 09:26] VITALS: PULSE 75
[2021-10-15] MEDS: guaiFENesin 200 MG/10 ML 10 ML UNIT-DOSE CUPS PO PRN (10:53)
[2021-10-15] MEDS: APIXABAN 5 MG TABLET PO SCH (10:54)
[2021-10-15] MEDS: ENALAPRIL MALEATE 2.5 MG TABLET PO SCH (10:55)
[2021-10-15] MEDS: LORATADINE 10 MG TABLET PO SCH (10:55)
[2021-10-15 15:51] VITALS: BP 127/72; TEMP 97.4
[2021-10-15] MEDS ORDERED: INSULIN (NOVOLOG MIX 70/30) 100 UNITS/ML MDV SQ SCH (22:00)
[2021-10-16] MEDS ORDERED: INSULIN (NOVOLOG MIX 70/30) 100 UNITS/ML MDV SQ SCH (07:00)
== END 2021-10-15 17:50 | disposition home or self-care (01) ==
LOC: JER 21:53 → JERBED 10-12 03:21 → INTOOBSV 10-12 03:21 → J4W 10-12 08:27
PROVIDERS: ADMIT Internal Medicine; ATTEND Internal Medicine
PROC: 3E03329 Introduction of Other Anti-infective into Peripheral Vein, Percutaneous Approach (ICD-10-PCS; principal; 2021-10-12)
PROC: 3E033NZ Introduction of Analgesics, Hypnotics, Sedatives into Peripheral Vein, Percutaneous Approach (ICD-10-PCS; 2021-10-12)
PROC: 3E033GC Introduction of Other Therapeutic Substance into Peripheral Vein, Percutaneous Approach (ICD-10-PCS; 2021-10-12)
PROC: 3E013VG Introduction of Insulin into Subcutaneous Tissue, Percutaneous Approach (ICD-10-PCS; 2021-10-12)
PROC: 3E0337Z Introduction of Electrolytic and Water Balance Substance into Peripheral Vein, Percutaneous Approach (ICD-10-PCS; 2021-10-12)
DX: I48.91 Unspecified atrial fibrillation (principal); N39.0 Urinary tract infection, site not specified; R51.9 Headache, unspecified; K21.9 Gastro-esophageal reflux disease without esophagitis; D69.6 Thrombocytopenia, unspecified; E11.42 Type 2 diabetes mellitus with diabetic polyneuropathy; E78.00 Pure hypercholesterolemia, unspecified; I11.0 Hypertensive heart disease with heart failure; I50.9 Heart failure, unspecified; M86.8X8 Other osteomyelitis, other site; R00.0 Tachycardia, unspecified; R11.2 Nausea with vomiting, unspecified; I45.10 Unspecified right bundle-branch block; Z86.14 Personal history of Methicillin resistant Staphylococcus aureus infection; E66.9 Obesity, unspecified; Z68.32 Body mass index [BMI] 32.0-32.9, adult; E03.9 Hypothyroidism, unspecified; Z79.4 Long term (current) use of insulin; Z88.0 Allergy status to penicillin; Z88.8 Allergy status to other drugs, medicaments and biological substances; Z91.041 Radiographic dye allergy status; Z20.822 Contact with and (suspected) exposure to COVID-19
CPT/HCPCS: 36415; 70450-TC; 70496-TC; 71045-TC-FY; 80048; 80053; 80061; 81003; 82962; 83036; 83690; 83735; 84443; 84484; 85025; 85027; 85610; 85730; 87086; 87186; 93005; 93010; 93306-TC; 96365; 96372; 96375; 99285-25; C9803-CS; G0378; Q9967; U0003; U0005

== ENCOUNTER 2021-11-26 20:18 | Emergency (ER) | payer OTHER ==
[2021-11-26 20:33] VITALS: BP 166/83; PULSE 65; TEMP 98.1; BMI 29.7
== END 2021-11-26 23:53 | disposition home or self-care (01) ==
LOC: JER 20:18
DX: S09.90XA Unspecified injury of head, initial encounter (principal); W01.0XXA Fall on same level from slipping, tripping and stumbling without subsequent striking against object, initial encounter
CPT/HCPCS: 70450-TC; 72125-TC; 93005; 93010; 99285-25

== ENCOUNTER 2023-07-17 13:26 | Emergency (ER) | payer OTHER ==
[2023-07-17 13:51] VITALS: RESP 20; TEMP 97.5; BMI 31.8
[2023-07-17] MEDS ORDERED: ACETAMINOPHEN INJECTION 100 ML IVPB ONE (14:56)
[2023-07-17] MEDS: ACETAMINOPHEN 1000 MG/100 ML BAG IVPB ONE (15:05)
[2023-07-17 15:11] LABS: BASO % 0.4 % (0-2.0); EOS % 3.9 % (0-4.5); HEMATOCRIT 39.8 % (32.4-45.2); HEMOGLOBIN 13.5 GM/dL (10.7-15.3); MCH 29.1 pg (25.7-33.7); MEAN CELL VOLUME 85.8 fl (80-96); MEAN PLT VOLUME 8.7 fl (7.5-11.1); MONO % 8.8 % (3.8-10.2); NEUT % 75.9 % (42.8-82.8); PLATELET COUNT 211 10^3/uL (134-434); RBC 4.64 M/mm3 (3.60-5.2); RDW 15.5 % (11.6-15.6); WHITE BLOOD COUNT 10.2 K/mm3 (4.0-10.0)
[2023-07-17 15:30] LABS: POTASSIUM 3.9 mmol/L (3.5-5.1)
[2023-07-17 15:33] LABS: ALBUMIN 3.2 g/dl (3.4-5.0); BLOOD UREA NITROGEN 33.7 mg/dL (7-18); CALCIUM 9.4 mg/dL (8.5-10.1); MAGNESIUM 1.9 mg/dL (1.8-2.4)
[2023-07-17 15:37] LABS: BILIRUBIN,TOTAL 1.2 mg/dL (0.2-1); CREATININE 0.9 mg/dL (0.55-1.3); TOT PROT 7.5 g/dl (6.4-8.2)
[2023-07-17] MEDS ORDERED: LIDOCAINE 4% PATCH TP ONE (15:38)
[2023-07-17] MEDS ORDERED: DIPHTH,PERTUSS(ACELL),TET 0.5 ML DISP.SYRIN IM ONE (15:38)
[2023-07-17] MEDS: DIPHTH,PERTUSS(ACELL),TET 0.5 ML DISP.SYRIN IM ONE (15:45)
[2023-07-17] MEDS: LIDOCAINE 5% TOPICAL PATCH TP ONE (15:45)
[2023-07-17 18:31] VITALS: BP 155/84; PULSE 86
== END 2023-07-17 18:50 | disposition home or self-care (01) ==
LOC: JER 13:26
PROC: 3E033NZ Introduction of Analgesics, Hypnotics, Sedatives into Peripheral Vein, Percutaneous Approach (ICD-10-PCS; principal; 2023-07-17)
PROC: 3E0234Z Introduction of Serum, Toxoid and Vaccine into Muscle, Percutaneous Approach (ICD-10-PCS; 2023-07-17)
DX: S00.01XA Abrasion of scalp, initial encounter (principal); R51.9 Headache, unspecified; W07.XXXA Fall from chair, initial encounter; Y93.89 Activity, other specified; Y92.009 Unspecified place in unspecified non-institutional (private) residence as the place of occurrence of the external cause; Z20.822 Contact with and (suspected) exposure to COVID-19
CPT/HCPCS: 0241U-QW; 36415; 70450-TC; 71045-TC-FY; 72125-TC; 80053; 82550; 82553; 83735; 85025; 90471; 90715; 93005; 93010; 96374; 99285-25; J0131

== ENCOUNTER 2023-12-31 13:19 | Observation (INO) | payer OTHER ==
[2023-12-31 13:26] VITALS: BMI 39.0
[2023-12-31] MEDS ORDERED: ACETAMINOPHEN INJECTION 100 ML IVPB ONE (14:18)
[2023-12-31] MEDS ORDERED: CLINDAMYCIN 600MG PREMIX IVPB 600 MG/50 ML BAG IVPB ONE (14:31)
[2023-12-31] MEDS: ACETAMINOPHEN 1000 MG/100 ML BAG IVPB ONE (14:53)
[2023-12-31] MEDS: LACTATED RINGERS SOLUTION 1000 ML INFUS.BAG IV ONE (14:53)
[2023-12-31] MEDS: CLINDAMYCIN 600MG PREMIX IVPB 600 MG/50 ML BAG IVPB ONE (14:53)
[2023-12-31 15:00] LABS: BASO % 0.4 % (0-2.0); EOS % 0.9 % (0-4.5); HEMATOCRIT 39.1 % (32.4-45.2); HEMOGLOBIN 13.3 GM/dL (10.7-15.3); LYMPH % 7.8 % (8-40); MCH 29.9 pg (25.7-33.7); MEAN CELL VOLUME 87.9 fl (80-96); MEAN PLT VOLUME 8.8 fl (7.5-11.1); MONO % 8.1 % (3.8-10.2); NEUT % 82.8 % (42.8-82.8); PLATELET COUNT 199 10^3/uL (134-434); RBC 4.45 M/mm3 (3.60-5.2); RDW 15.1 % (11.6-15.6); WHITE BLOOD COUNT 13.5 K/mm3 (4.0-10.0)
[2023-12-31] MEDS ORDERED: DEXAMETHASONE SOD PHOSPHATE 10 MG/1 ML VIAL IVPUSH ONE (15:37)
[2023-12-31] MEDS ORDERED: methylPREDNISolone NA SUCC 125 MG/2 ML VIAL ONE (15:40)
[2023-12-31] MEDS ORDERED: diphenhydrAMINE HCL 25 MG CAPSULE (FP) PO ONE (15:40)
[2023-12-31] MEDS: diphenhydrAMINE HCL 25 MG CAPSULE (FP) PO ONE (15:54)
[2023-12-31] MEDS: methylPREDNISolone NA SUCC 125 MG/2 ML VIAL IVPB ONE (15:54)
[2023-12-31 15:58] LABS: CALCIUM 8.9 mg/dL (8.5-10.1)
[2023-12-31 15:59] LABS: ALBUMIN 3.4 g/dl (3.4-5.0); BLOOD UREA NITROGEN 19.8 mg/dL (7-18); MAGNESIUM 1.9 mg/dL (1.8-2.4)
[2023-12-31 16:02] LABS: PHOSPHOROUS 2.3 mg/dL (2.5-4.9)
[2023-12-31 16:04] LABS: BILIRUBIN,TOTAL 3.2 mg/dL (0.2-1); TOT PROT 8.2 g/dl (6.4-8.2)
[2023-12-31] MEDS ORDERED: EPINEPHrine 1:10,000 (P-F SYR) 1 MG/10 ML DISP.SYRIN ONE (16:06)
[2023-12-31] MEDS: EPINEPHrine/PF 1 MG/1 ML (1:1,000) AMPULE IM ONE (17:14)
[2023-12-31] MEDS: SODIUM CHLORIDE 0.9% 500 ML INFUS.BAG IV ONE (17:15)
[2023-12-31 18:01] LABS: BILIRUBIN,DIRECT 0.5 mg/dL (0.0-0.2)
[2023-12-31] MEDS: CHLORHEXIDINE GLUCONATE 0.12% 15ML CUP MM SCH (23:13)
[2023-12-31] MEDS ORDERED: APIXABAN 5 MG TABLET ONE (23:13)
[2023-12-31] MEDS: APIXABAN 5 MG TABLET PO SCH (23:15)
[2024-01-01] MEDS ORDERED: INSULIN (LEVEMIR) 100 UNITS/ML UNITS SQ ONE ×2 (00:02→07:15)
[2024-01-01] MEDS: INSULIN (LEVEMIR) 100 UNITS/ML UNITS SQ SCH ×2 (00:06→21:44)
[2024-01-01] MEDS: CLINDAMYCIN 300 MG PREMIX IVPB 300 MG/50 ML BAG IVPB SCH (02:29)
[2024-01-01 06:35] LABS: BASO % 0.1 % (0-2.0); HEMATOCRIT 37.3 % (32.4-45.2); HEMOGLOBIN 12.5 GM/dL (10.7-15.3); LYMPH % 7.4 % (8-40); MCH 29.9 pg (25.7-33.7); MCHC 33.6 g/dl (32.0-36.0); MEAN CELL VOLUME 88.8 fl (80-96); MEAN PLT VOLUME 9.2 fl (7.5-11.1); MONO % 3.7 % (3.8-10.2); NEUT % 88.8 % (42.8-82.8); PLATELET COUNT 186 10^3/uL (134-434); RDW 14.7 % (11.6-15.6); WHITE BLOOD COUNT 11.8 K/mm3 (4.0-10.0)
[2024-01-01 06:53] LABS: POTASSIUM 4.2 mmol/L (3.5-5.1)
[2024-01-01 06:55] LABS: ALBUMIN 2.9 g/dl (3.4-5.0); BLOOD UREA NITROGEN 22.3 mg/dL (7-18); CALCIUM 8.7 mg/dL (8.5-10.1)
[2024-01-01 06:59] LABS: CREATININE 0.8 mg/dL (0.55-1.3)
[2024-01-01 07:00] LABS: TOT PROT 7.1 g/dl (6.4-8.2)
[2024-01-01] MEDS ORDERED: LEVOTHYROXINE NA 25 MCG TABLET (FP) ONE (07:14)
[2024-01-01] MEDS: INSULIN ASPART SLIDING SCALE (NOVOLOG) 1 VIAL SQ SCH (07:24)
[2024-01-01] MEDS: LEVOTHYROXINE NA 25 MCG TABLET (FP) PO SCH (07:24)
[2024-01-01] MEDS ORDERED: APIXABAN 5 MG TABLET ONE (09:21)
[2024-01-01] MEDS: LACTOBACILLUS ACIDOPHILUS 1 TABLET PO SCH (09:28)
[2024-01-01] MEDS ORDERED: INSULIN ASPART SLIDING SCALE (NOVOLOG) 1 VIAL SQ ONE (11:09)
[2024-01-01] MEDS ORDERED: CEFTRIAXONE 2 GM/100 ML BAG IVPB ONE (12:18)
[2024-01-01] MEDS: CEFTRIAXONE 2 GM in DEXTROSE 5%-WATER 100 ML IVPB SCH (12:24)
[2024-01-01] MEDS ORDERED: INSULIN (LEVEMIR) 100 UNITS/ML UNITS SQ SCH (16:21)
[2024-01-01] MEDS: CLINDAMYCIN 600MG PREMIX IVPB 600 MG/50 ML BAG IVPB SCH (17:18)
[2024-01-01] MEDS: ACETAMINOPHEN 1000 MG/100 ML BAG IVPB PRN (19:04)
[2024-01-02] MEDS: ACETAMINOPHEN 1000 MG/100 ML BAG IVPB PRN ×2 (11:12→16:47)
[2024-01-02] MEDS: traMADol HCL 50 MG TABLET PO PRN (22:21)
[2024-01-03] MEDS: INSULIN (LEVEMIR) 100 UNITS/ML UNITS SQ SCH (21:38)
[2024-01-04] MEDS: POLYETHYLENE GLYCOL (HEALTHYLAX) 3350 17 GM PACKET PO SCH (12:31)
[2024-01-04] MEDS: INSULIN (LEVEMIR) 100 UNITS/ML UNITS SQ SCH (21:29)
[2024-01-04 22:05] VITALS: RESP 18
[2024-01-05] MEDS: CLINDAMYCIN HCL 150 MG CAPSULE (FP) PO ONE (12:31)
[2024-01-05] MEDS ORDERED: CLINDAMYCIN HCL 150 MG CAPSULE (FP) PO SCH (14:00)
[2024-01-05 14:04] VITALS: BP 128/54; PULSE 68; TEMP 98.4
== END 2024-01-05 14:07 | disposition home or self-care (01) ==
LOC: JER 13:19 → JERBED 18:04 → J7W 01-01 13:12
PROVIDERS: ADMIT Internal Medicine; ATTEND Internal Medicine
PROC: 3E033NZ Introduction of Analgesics, Hypnotics, Sedatives into Peripheral Vein, Percutaneous Approach (ICD-10-PCS; principal; 2023-12-31)
PROC: 3E03329 Introduction of Other Anti-infective into Peripheral Vein, Percutaneous Approach (ICD-10-PCS; 2023-12-31)
PROC: 3E013VG Introduction of Insulin into Subcutaneous Tissue, Percutaneous Approach (ICD-10-PCS; 2023-12-31)
PROC: 3E0337Z Introduction of Electrolytic and Water Balance Substance into Peripheral Vein, Percutaneous Approach (ICD-10-PCS; 2023-12-31)
PROC: 3E033GC Introduction of Other Therapeutic Substance into Peripheral Vein, Percutaneous Approach (ICD-10-PCS; 2023-12-31)
DX: L03.211 Cellulitis of face (principal); I48.91 Unspecified atrial fibrillation; E11.65 Type 2 diabetes mellitus with hyperglycemia; E78.5 Hyperlipidemia, unspecified; K02.9 Dental caries, unspecified; K21.9 Gastro-esophageal reflux disease without esophagitis; I45.10 Unspecified right bundle-branch block; G62.9 Polyneuropathy, unspecified; E03.9 Hypothyroidism, unspecified; I89.0 Lymphedema, not elsewhere classified; M86.9 Osteomyelitis, unspecified; I10 Essential (primary) hypertension; E80.6 Other disorders of bilirubin metabolism; Z87.440 Personal history of urinary (tract) infections; Z86.14 Personal history of Methicillin resistant Staphylococcus aureus infection; Z88.0 Allergy status to penicillin
CPT/HCPCS: 36415; 70491-TC; 76705-TC; 80053; 82248; 82962; 83036; 83735; 84100; 85025; 85651; 86140; 87040; 87081; 93005; 93010; 96365; 96366; 96372; 96375; 96376; 99285-25; G0378; J0131; Q9967